=== PATIENT | female | born 1940 | race African-American/Black ===

== ENCOUNTER → 2016-08-17 | Outpatient (CLI) | payer MEDICARE ==
[2015-11-09 19:55] VITALS: BP 173/89
[~2016-08-17] MED LIST: BUPIVACAINE MPF 0.5% 10 ML VIAL for KCIC. IJ ONE; CARV3.122 PO; INSU100V13 SQ; INSU100V31 SQ; IOHEXOL 300 MG/ML 10ML VIAL. INT ART ONE; LOSA25TA4 PO; methylPREDNISolone ACETATE 40 MG/ML VIAL. INT ART ONE
--- NOTE | 2016-08-17 15:03 | KCIC ---
PROCEDURE Therapeutic left hip injection using fluoroscopic guidance. HISTORY Hip pain. TECHNIQUE The procedure was explained to the patient as were potential risks, including infection, bleeding or allergic reaction. All questions were answered. Informed written and verbal consent was obtained. The hip was prepped and draped in the usual sterile manner. Following administration of local anesthetic, a 22-gauge spinal needle was advanced into the hip joint without difficulty, with care taken to avoid the vascular structures. Stylet was removed and following negative aspiration, a mixture of 2 cc (80 mg) Depo-Medrol, 4 cc 0.5% Marcaine and 4 cc 1% lidocaine were injected without difficulty. Iodinated contrast was not used due to a question of patient tolerance. Intra-articular position was confirmed with a small amount of air. The needle was removed. There was good hemostasis at the injection site. The patient left in stable condition without immediate complication. The patient was given postprocedural instructions, instructed to contact us or the emergency room if there are any complications. A single spot image was obtained. FLUOROSCOPY TIME: 49 seconds Electronically signed by: Giacomo Noel MD (August 17, 2016 15:02:33)
--- NOTE | 2016-08-17 15:07 | KCIC ---
PROCEDURE AP pelvis with lateral view of the left hip HISTORY Chronic left hip pain. COMPARISON None FINDINGS Severe axial narrowing of the left hip joint. Mild acetabuli protrusio. Small marginal osteophytes. Mild coarsening of the trabecula at the left femoral neck through trochanteric region, raising the question of mild or early Paget's disease. No evidence of acute fracture. No dislocation. Limited visualization of the lower spine demonstrates degenerative disease. IMPRESSION 1. 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 Mild coarsening of left proximal femur trabecular markings. Consider Paget's disease. 2. Left hip primary osteoarthritis. Electronically signed by: Giacomo Noel MD (August 17, 2016 15:06:05)
== END | disposition home or self-care (01) ==
LOC: KCIC 11:55
PROVIDERS: ATTEND Physical Medicine & Rehabilitation
DX: M16.12 Unilateral primary osteoarthritis, left hip (principal); G89.29 Other chronic pain
CPT/HCPCS: 20610; 73501; 77002; J1030; Q9967

== ENCOUNTER → 2017-07-04 | Outpatient (CLI) | payer MEDICARE ==
[2017-07-04] MEDS: methylPREDNISolone ACETATE 40 MG/ML VIAL. INT ART (13:01)
[2017-07-04] MEDS: LIDOCAINE 1% Multi-Dose 20 ML VIAL. ID (13:01)
[2017-07-04] MEDS: BUPIVACAINE MPF 0.5% 10 ML VIAL for KCIC. IJ (13:01)
[2017-07-04] MEDS: IOHEXOL 300 MG/ML 50 ML VIAL. INT ART (13:01)
== END | disposition home or self-care (01) ==
LOC: KCIC 12:16
DX: M25.552 Pain in left hip (principal); Z88.8 Allergy status to other drugs, medicaments and biological substances
CPT/HCPCS: 20610; 77002; J1030; Q9967

== ENCOUNTER 2018-01-29 17:17 | Emergency (ER) | payer MEDICARE ==
[2015-11-09 19:55] VITALS: BP 173/89
[~2018-01-29 17:17] MED LIST changes: -BUPIVACAINE MPF 0.5% 10 ML VIAL for KCIC. IJ ONE; -IOHEXOL 300 MG/ML 10ML VIAL. INT ART ONE; -LOSA25TA4 PO; +LOSA25TA5 PO; -methylPREDNISolone ACETATE 40 MG/ML VIAL. INT ART ONE
== END 2018-01-29 18:11 | disposition left against medical advice (07) ==
LOC: ER 17:17
DX: R04.0 Epistaxis (principal); Z53.21 Procedure and treatment not carried out due to patient leaving prior to being seen by health care provider

== ENCOUNTER → 2018-03-17 | Outpatient (CLI) | payer MEDICARE ==
[2015-11-09 19:55] VITALS: BP 173/89
[~2018-03-17] MED LIST changes: +BUPIVACAINE MPF 0.25% 10 ML VIAL. IJ ONE; +BUPIVACAINE MPF 0.25% 30 ML VIAL. IJ ONE; +BUPIVACAINE MPF 0.5% 30 ML VIAL. IJ ONE; +CARV3.1210 PO; -CARV3.122 PO; +IOHEXOL 300 MG/ML 50 ML VIAL. INT ART ONE; +LIDOCAINE WITH 8.4% SOD BICARB 3 ML DISP.SYRIN. INJ ONE; -LOSA25TA5 PO; +LOSA25TA54 PO; +methylPREDNISolone ACETATE 40 MG/ML VIAL. INT ART ONE
--- NOTE | 2018-03-17 15:30 | RAD ---
Fluoroscopically guided left hip joint injection, 03/17/2018: History: Arthritis, pain Under local anesthesia, aseptic conditions and fluoroscopic guidance a 22-gauge spinal needle was passed into the left hip joint via an anterior approach. A small amount of iodinated contrast material was injected to confirm intra-articular positioning following which 40 mg of Depo-Medrol mixed with 4 cc of 0.25% bupivacaine was injected into the joint as requested. The needle was then removed and hemostasis obtained. 1.0 minutes of fluoroscopy time was utilized. One fluoroscopic spot image was recorded. The patient tolerated the procedure well and left the department in good condition.
--- NOTE | 2018-03-17 17:43 | RAD ---
Pelvis with left hip, 3 views, 03/17/2018: HISTORY: Painful left hip, arthritis There is moderate narrowing of the left hip joint with subchondral sclerosis and marginal spurring. The right hip joint is fairly well-maintained. No fracture or dislocation is identified. IMPRESSION: 1. Moderate osteoarthritis at the left hip joint. 2. No acute bony abnormality is detected. Electronically signed by: Ziggy Mckeon MD (03/17/2018 5:40 PM) [facility]
== END | disposition home or self-care (01) ==
LOC: RAD 11:55
PROVIDERS: ATTEND Physical Medicine & Rehabilitation
DX: M16.12 Unilateral primary osteoarthritis, left hip (principal); I10 Essential (primary) hypertension; E11.9 Type 2 diabetes mellitus without complications; Z79.899 Other long term (current) drug therapy; Z88.8 Allergy status to other drugs, medicaments and biological substances; Z79.84 Long term (current) use of oral hypoglycemic drugs
CPT/HCPCS: 20610; 73501; 77002; J1030; J3490; Q9967

== ENCOUNTER → 2018-06-12 | Outpatient (CLI) | payer MEDICARE ==
[2015-11-09 19:55] VITALS: BP 173/89
[~2018-06-12] MED LIST changes: +ASPI-630 PO; +ATOR20TA58 PO; -BUPIVACAINE MPF 0.25% 10 ML VIAL. IJ ONE; -BUPIVACAINE MPF 0.25% 30 ML VIAL. IJ ONE; -BUPIVACAINE MPF 0.5% 30 ML VIAL. IJ ONE; +CARV25TA2 PO; +CYAN1TAB19 PO; +DARBEPOETIN ALFA IN POLYSORBAT SQ; +EPOE10005 IJ; +FERR325T14 PO; +FURO-68 PO; -IOHEXOL 300 MG/ML 50 ML VIAL. INT ART ONE; -LIDOCAINE WITH 8.4% SOD BICARB 3 ML DISP.SYRIN. INJ ONE; +OMEG1CAP6 PO; +OXYC1TAB15 PO; -methylPREDNISolone ACETATE 40 MG/ML VIAL. INT ART ONE
[2018-06-12 09:18] LABS: BASO % 0 % (0-3); EOS # 0.3 x10^3/uL (0.0-0.7); EOS % 5 % (0-3); HEMATOCRIT 31.8 % (36.0-47.0); HEMOGLOBIN 10.3 g/dL (12.0-15.5); LYMPH % 33 % (24-48); MEAN CORPUSCULAR HEMOGLOBIN 29 pg (25-35); MEAN CORPUSCULAR HGB CONC 32 g/dL (31-37); MEAN CORPUSCULAR VOLUME 89 fL (79-100); MONO # 0.6 x10^3/uL (0.0-1.1); MONO % 9 % (0-9); NEUT # 3.2 x10^3uL (1.8-7.7); NEUT % 52 % (31-73); PLATELET COUNT 219 x10^3/uL (140-400); RED BLOOD COUNT 3.58 x10^6/uL (3.50-5.40); RED CELL DISTRIBUTION WIDTH 15.1 % (11.5-14.5); WHITE BLOOD COUNT 6.1 x10^3/uL (4.0-11.0)
[2018-06-12 09:28] LABS: PROTHROMBIN TIME PATIENT 13.9 SEC (11.7-14.0)
[2018-06-12 09:31] LABS: ALBUMIN 3.2 g/dL (3.4-5.0); CALCIUM 9.8 mg/dL (8.5-10.1); GFR 18.3; POTASSIUM 5.1 mmol/L (3.5-5.1)
[2018-06-12 11:31] LABS: BILIRUBIN,URINE NEGATIVE (NEG); CLARITY,URINE CLEAR; COLOR,URINE YELLOW; NITRITE,URINE NEGATIVE (NEG); PROTEIN,URINE 100 mg/dL (NEG-TRACE); UROBILINOGEN,URINE 0.2 mg/dL (0.2 mg/dL)
[2018-06-12 11:59] LABS: BACTERIA,URINE FEW /HPF (0-FEW); RBC,URINE OCC /HPF (0-2); SQUAMOUS EPITHELIAL CELL,UR MOD /LPF
--- NOTE | 2018-06-12 13:10 | EKG ---
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
--- NOTE | 2018-06-12 13:26 | RAD ---
EXAM: Chest, 2 views. HISTORY: Arthroplasty. Preoperative evaluation. Pain. COMPARISON: None. FINDINGS: 2 views the chest are obtained. There is no infiltrate, pleural effusion or pneumothorax. The heart is normal in size. There is evidence of prior median sternotomy and cardiac valve surgery. There is a calcified granuloma within the right upper lobe. There is suspected linear scarring or atelectasis within the lingula. IMPRESSION: No acute pulmonary finding. Electronically signed by: Annita Matthew MD (06/12/2018 1:23 PM) [place] [id number]
== END | disposition home or self-care (01) ==
LOC: SURGPAT 12:45
PROVIDERS: ATTEND Orthopaedic Surgery Sports Medicine
DX: M17.12 Unilateral primary osteoarthritis, left knee (principal); I12.9 Hypertensive chronic kidney disease with stage 1 through stage 4 chronic kidney disease, or unspecified chronic kidney disease; E11.22 Type 2 diabetes mellitus with diabetic chronic kidney disease; E78.00 Pure hypercholesterolemia, unspecified; N18.9 Chronic kidney disease, unspecified; Z79.899 Other long term (current) drug therapy
CPT/HCPCS: 36415; 71046; 80048; 81001; 82040; 85025; 85610; 85651; 85730; 87086; 87641; 93005

== ENCOUNTER 2018-06-26 08:27 | Inpatient (IN) | payer MEDICARE ==
[~2018-06-26] VITALS: Ht 170.2 cm; Wt 98.9 kg
[2018-06-26] VITALS (7 sets, daily range): BP systolic 123–159; BP diastolic 60–79
[~2018-06-26 08:27] MED LIST changes: +ACETAMINOPHEN 500 MG TABLET PO PRN; -CYAN1TAB19 PO; -DARBEPOETIN ALFA IN POLYSORBAT SQ; +DEXAMETHASONE SOD PHOS 20 MG/5 ML VIAL. ONE; -EPOE10005 IJ; -FERR325T14 PO; +HYDROmorphone 2 MG/ML VIAL IV PRN; +IV RINGERS,LACTATED 1000ML 1,000 ML IV SCH; +LIDOCAINE 1% PF 2 ML VIAL. ID PRN; +LIDOCAINE 2% PF 5 ML VIAL. ONE; +MORPHINE SULFATE 2 MG/ML VIAL. IV PRN; +MORPHINE SULFATE 5 MG, KETOROLAC 30MG VIAL 30 MG, ROPIVacaine 0.5% PF 60 ML, EPINEPHrin... INT ART ONE; +ONDANSETRON PF 4 MG/2 ML VIAL. IV PRN; +ONDANSETRON PF 4 MG/2 ML VIAL. ONE; -OXYC1TAB15 PO; +PROCHLORPERAZINE 10 MG/2 ML VIAL. IV PRN; +PROPOFOL 20 ML IV ONE; +ROCURONIUM 50 MG/5 ML VIAL. ONE; +SUCCINYLCHOLINE 200 MG/10 ML VIAL. ONE; +fentaNYL PF VIAL 100 MCG/2 ML VIAL IV PRN; +fentaNYL PF VIAL 100 MCG/2 ML VIAL ONE
[2018-06-26] MEDS: IV NORMAL SALINE 1000ML BAG 1,000 ML IV SCH ×3 (09:41→14:23)
[2018-06-26] MEDS ORDERED: 0.9 % SODIUM CHLORIDE 10 ML DISP.SYRIN. IV PRN (09:45)
[2018-06-26] MEDS ORDERED: METOCLOPRAMIDE HCL 10 MG/2 ML VIAL. IV PRN (09:45)
[2018-06-26] MEDS ORDERED: MORPHINE SULFATE 2 MG/ML VIAL. IV PRN (09:45)
[2018-06-26] MEDS ORDERED: CALCIUM CARBONATE 500 MG TAB.CHEW PO PRN (09:45)
[2018-06-26] MEDS ORDERED: oxyCODONE IR 5 MG TABLET PO PRN (09:45)
[2018-06-26] MEDS ORDERED: diphenhydrAMINE 50 MG/ML VIAL IV PRN (09:45)
[2018-06-26] MEDS ORDERED: DEXTROSE 50% 25 GM / 50ML DISP.SYRIN. IV PRN (09:45)
[2018-06-26] MEDS ORDERED: ZOLPIDEM 5 MG TABLET. PO PRN (09:45)
[2018-06-26] MEDS ORDERED: fentaNYL PF VIAL 100 MCG/2 ML VIAL IV PRN (09:45)
[2018-06-26] MEDS ORDERED: PROCHLORPERAZINE 5 MG TABLET. PO PRN (09:45)
[2018-06-26 10:14] LABS: PROTHROMBIN TIME PATIENT 15.1 SEC (11.7-14.0)
[2018-06-26] MEDS: ONDANSETRON PF 4 MG/2 ML VIAL. IV SCH ×3 (12:00→23:00)
[2018-06-26] MEDS: ONDANSETRON ODT 4 MG TAB.RAPDIS. PO SCH ×3 (12:00→23:00)
--- NOTE | 2018-06-26 12:02 | PDOC4 ---
Operative Note Operative Note Date of procedure: 06/26/2018 Surgeon: Semaj Farris Asst.: Roger Oakes, advanced practice registered nurse who was necessary to assist with manipulating the leg and holding retractors as well as wound closure for this procedure Preoperative diagnosis: Advanced left hip primary degenerative joint disease Postoperative diagnosis: Same Procedure performed: Left total hip arthroplasty Anesthesia: Gen. Findings: Advanced primary degenerative joint disease of left hip. Blood loss: 200mL Complications: none Components inserted: Fierro and nephew 52 mm R3 acetabular shell with a 36mm +4 cobalt chrome femoral head. A 20 posteriorly directed elevated liner was used. Size 8 standard offset anthology femoral component was used. Reason for procedure: Patient is a very pleasant individual with severe and progressive pain interfering with her activities of daily living and attributable to the above preoperative diagnosis. Clinical and radiographic examination were consistent with the above preoperative diagnosis and after discussion of the risks, benefits, and alternatives, taking into account her failure of conservative therapies, the patient elected to proceed with surgery. Description of procedure: Patient was greeted in the preoperative area by myself where the correct extremity was verified and marked. She was taken back to the operative suite and antibiotics were started as they were brought back. Once in the operative room, patient was transferred gently supine to the operating table and secured to the bed with all pressure points padded. Axillary roll was used. The down leg was padded at the fibular head and heel. Patient was secured the bed with our hip positioning devices. I then appreciated leg lengths in this position. After this, the operative extremity was prepped and draped in our usual sterile fashion including an Ioban Weston. We then proceeded to conduct our standard preoperative timeout. I then palpated and marked surface anatomy and luli a line from my standard posterolateral skin incision. Skin was incised with a scalpel and subcutaneous tissue was dissected down the level of fascia with electrocautery. Bleeders were cauterized as they were encountered. Esquivel elevator was used to sweep aside adherent subcutaneous tissue for later identification and repair of the fascia. Fascia was then incised in line with the skin incision and the gluteus rui was split bluntly in line with its fibers. After this, a lap was used to push bursal tissue posteriorly to identify the piriformis and quadratus, these were taken down, the piriformis was tagged for later repair. Our self-retaining retractor was in place. At this point, identified the hip capsule incised in a T -type incision, tagging ends for later repair. The hip was dislocated. I then palpated and marked with electrocautery areas at the greater and lesser trochanters and center of the femoral head and I made measurements for length and offset. I then luli a line on the neck about 1 cm proximal lesser trochanter and made my neck cut through this. The bony remnant was delivered from the operative field. We placed her acetabular retractors and inspected the acetabulum. I excised the soft tissues from the floor the acetabulum as well as the labrum. Osteophytes were taken down posteriorly. After this, we began reaming and reamed down until we encountered a punctate bleeding bony bed. The operative field and then thoroughly irrigated out. The cup was then impacted referencing [place] anatomy and the crossbar attachment. I had identified the transverse acetabular ligament. After this, I palpated for the posterior column and greater sciatic notch and referenced this to place a screw into the posterior column. The operative field was irrigated again and my polyethylene liner was then impacted in position and confirmed that it was fully seated on circumferential visualization. We then removed our acetabular retractors and used our proximal femoral elevator and repositioned the leg. I used the carmelo cutting osteotome followed by canal finding reamer followed by lateralizing reamer. We then began broaching and broached to the above size and trialed different head and necks, using our measurements as a guide as well. I still felt that the above combination gave the best range of motion, stability and leg length. After this, the trial components were removed and the canal was thoroughly irrigated. I then impacted my femoral stem and position. We then re- trialed the head sizes and selected the above size. The hip was redislocated and the Dong taper region was washed and dried. The femoral head was then gently impacted in position and the acetabulum was inspected and irrigated to make sure was free of debris. After this, the hip was reduced. Excellent range of motion and stability were achieved. I was happy with the leg lengths. We then closed capsule with simple interrupted #2 Ethibond. Piriformis was reapproximated through drill holes. I then injected my periarticular mixture into the michelle-incisional soft tissues below. Fascia was closed was running #2 Quill suture. Inverted interrupted 2-0 Vicryl in a multilayered fashion was used for subcutaneous tissue and running 3-0 Monocryl for skin. Prior to wound closure, all counts correct 2. An intraoperative fracture occurred treated with cerclage cable as a complication. At the conclusion, the hip region was cleansed and dried and our incisional wound vacuum was applied. Patient tolerated surgery well. At the conclusion, they were laid supine and transferred gently supine to the hospital bed and taken to PACU in a stable and extubated condition. Postoperative plan is to admit the patient to the joint center for DVT and antibiotic prophylaxis as well as to begin the rehabilitation and receive likely IV pain medicine. SEMAJ FARRIS II, MD Jun 26, 2018 12:02
[2018-06-26] MEDS: fentaNYL PF VIAL 100 MCG/2 ML VIAL IV PRN ×2 (12:36→13:16)
--- NOTE | 2018-06-26 13:08 | RAD ---
[facility]LVIS Clinical Indication: POST OP Comparison: AP pelvis March 17, 2018. Findings: There is left hip arthroplasty. On single view the alignment is anatomic. No acute hip or pelvic fracture is seen. There is subcutaneous air lateral to the left hip. Arterial calcifications noted. IMPRESSION: Left hip arthroplasty. No acute fracture. Electronically signed by: Chava Swartz MD (06/26/2018 1:06 PM) [id number]
--- NOTE | 2018-06-26 15:15 | NUR ---
Admitted from PACU after left total hip arthroplasty, dressing to left hip area clean, dry & intact with Dee Dee dressing attach in place, states discomfort level 10/10, ice pack to hip for comfort, bilateral MARIE hose, bilateral SCD's in place, IVF infusing into left hand, left upper arm AV shunt with + thrill/bruit, nauseated vomited approximately 50cc, later requested applesauce to eat, belongings placed in closet, oriented to surroundings, family members at bedside, call light in reach, side rails up.
[2018-06-26] MEDS ORDERED: WARFARIN 7.5 MG TABLET. PO ONE (16:00)
--- NOTE | 2018-06-26 16:35 | NUR ---
Per family member, vomited again stated it was full referring to basin, no po medication seen, will give Zofran
[2018-06-26] MEDS: CARVEDILOL 12.5 MG TABLET. PO SCH (17:00)
[2018-06-26] MEDS: FERROUS SULFATE 325 MG TABLET. PO SCH (17:00)
[2018-06-26] MEDS: INSULIN LISPRO 300 UNITS/3 ML INSULN.PEN. SQ SCH ×2 (17:00→17:31)
--- NOTE | 2018-06-26 18:26 | NUR ---
Ambulated to bathroom unsuccessful with voiding, to bed, side rails up, HOB elevated, call light in lap, family member left
--- NOTE | 2018-06-26 19:20 | NUR ---
PATIENT VISITING WITH FAMILY. PATIENT DENIES ANY COMPLAINTS. CALL LIGHT IN REACH, WILL MONITOR.
--- NOTE | 2018-06-26 20:20 | NUR ---
SEE ASSESSMENT. PATIENT DENIES PAIN OR NEED TO VOID. CALL LIGHT IN REACH, INSTRUCTED PATIENT TO CALL FOR ASSISTANCE. PATIENT VERBALIZED UNDERSTANDING. WILL MONITOR.
[2018-06-26] MEDS: ATORVASTATIN CALCIUM 20 MG TABLET PO SCH (21:43)
[2018-06-26] MEDS: INSULIN GLARGINE 300 UNITS/3 ML INSULN.PEN. SQ SCH (21:48)
[2018-06-26] MEDS: oxyCODONE IR 5 MG TABLET PO PRN (23:00)
--- NOTE | 2018-06-26 23:00 | NUR ---
PAIN MEDICATION GIVEN WITH ZOFRAN ODT EARLY PER PATIENT'S REQUEST. PATIENT DECLINED NEED FOR SNACK OR URGE TO VOID. PATIENT INSTRUCTED ON NEED TO VOID AND VERBALIZED UNDERSTANDING. CALL LIGHT IN REACH, WILL MONITOR.
[2018-06-27 03:18] VITALS: BP 130/70
--- NOTE | 2018-06-27 03:20 | NUR ---
RN INSTRUCTED PATIENT ON NEED TO VOID. PATIENT STATED "I DON'T HAVE TO GO YET." RN ASKED PATIENT IF SHE VOIDS MUCH AT HOME. PATIENT STATED "NOT RALLY, I DON'T DRINK MUCH." RN INFORMED PATIENT ON NEED TO VOID SOON. PATIENT VERBALIZED UNDERSTANDING. CALL LIGHT IN REACH.
[2018-06-27 04:00] LABS: HEMATOCRIT 26.3 % (36.0-47.0); HEMOGLOBIN 8.6 g/dL (12.0-15.5)
[2018-06-27] MEDS ORDERED: MAGNESIUM HYDROXIDE 2,400 MG/30 ML ORAL.SUSP. PO PRN (06:00)
[2018-06-27 06:03] VITALS: BP 140/61
[2018-06-27] MEDS: ONDANSETRON ODT 4 MG TAB.RAPDIS. PO SCH (06:05)
[2018-06-27] MEDS: ONDANSETRON PF 4 MG/2 ML VIAL. IV SCH (06:05)
--- NOTE | 2018-06-27 06:20 | NUR ---
RN INFORMED PATIENT THAT SHE NEEDED TO TRY TO VOID, PATIENT FINALLY AGREED TO TRY. PATIENT UP TO RESTROOM ATTEMPTING TO VOID.
--- NOTE | 2018-06-27 07:13 | NUR ---
PATIENT ATTEMPTED TO VOID WITH A FEW DRIBBLES IN SPECIMEN HAT. BLADDER SCANNED PATIENT WITH >771 ON SCANNER. STRAIGHT CATHETER INSERTED USING STERILE TECHNIQUE. 650CC CLEAR YELLOW URINE OBTAINED.
[2018-06-27] MEDS: FUROSEMIDE 40 MG TABLET. PO SCH (08:03)
[2018-06-27] MEDS: FERROUS SULFATE 325 MG TABLET. PO SCH ×2 (08:03→17:00)
[2018-06-27] MEDS: SENNOSIDES/DOCUSATE 8.6/50MG TABLET. PO SCH (08:03)
[2018-06-27] MEDS: MULTIVITAMIN with MINERAL TABLET. PO SCH (08:03)
[2018-06-27] MEDS: ACETAMINOPHEN 500 MG TABLET PO SCH ×3 (08:03→21:04)
[2018-06-27] MEDS: CARVEDILOL 12.5 MG TABLET. PO SCH ×2 (08:06→17:00)
[2018-06-27] MEDS: INSULIN LISPRO 300 UNITS/3 ML INSULN.PEN. SQ SCH ×6 (08:12→17:09)
[2018-06-27] MEDS ORDERED: LOSARTAN POTASSIUM 50 MG TABLET. PO SCH (09:00)
[2018-06-27 09:06] LABS: CREATININE 3.2 mg/dL (0.6-1.0)
[2018-06-27 09:15] LABS: POTASSIUM 6.1 mmol/L (3.5-5.1)
--- NOTE | 2018-06-27 09:24 | PDOC ---
ORTHO PROGRESS NOTES Subjective Patient denies any complaints this morning. She feels like her pain is tolerable. Vitals Vital Signs Date Time Temp Pulse Resp B/P (MAP) Pulse Ox O2 Delivery O2 Flow Rate FiO2 06/27/18 08:06 62 142/64 06/27/18 07:50 Room Air 06/27/18 06:03 97.4 16 96 97.4 06/26/18 12:56 10 Labs Laboratory Tests Test 06/26/18 09:26 06/26/18 09:30 06/26/18 13:36 06/26/18 16:10 Glucose (Fingerstick) 106 mg/dL (70-99) 215 mg/dL (70-99) 223 mg/dL (70-99) Prothrombin Time 15.1 SEC (11.7-14.0) Prothromb Time International Ratio 1.2 (0.8-1.1) Activated Partial Thromboplast Time 32 SEC (24-38) Test 06/26/18 21:44 06/27/18 03:35 06/27/18 06:37 Glucose (Fingerstick) 213 mg/dL (70-99) 169 mg/dL (70-99) Hemoglobin 8.6 g/dL (12.0-15.5) Hematocrit 26.3 % (36.0-47.0) Mean Corpuscular Hemoglobin Concent 33 g/dL (31-37) Prothrombin Time 15.0 SEC (11.7-14.0) Prothromb Time International Ratio 1.2 (0.8-1.1) Sodium Level 139 mmol/L (136-145) Potassium Level 6.1 mmol/L (3.5-5.1) Chloride Level 106 mmol/L (98-107) Carbon Dioxide Level 23 mmol/L (21-32) Anion Gap 10 (6-14) Blood Urea Nitrogen 57 mg/dL (7-20) Creatinine 3.2 mg/dL (0.6-1.0) Estimated GFR (Cockcroft-Gault) 17.0 Glucose Level 203 mg/dL (70-99) Calcium Level 9.0 mg/dL (8.5-10.1) Laboratory Tests Test 06/26/18 09:26 06/26/18 09:30 06/26/18 13:36 06/26/18 16:10 Glucose (Fingerstick) 106 mg/dL (70-99) 215 mg/dL (70-99) 223 mg/dL (70-99) Prothrombin Time 15.1 SEC (11.7-14.0) Prothromb Time International Ratio 1.2 (0.8-1.1) Activated Partial Thromboplast Time 32 SEC (24-38) Test 06/26/18 21:44 06/27/18 03:35 06/27/18 06:37 Glucose (Fingerstick) 213 mg/dL (70-99) 169 mg/dL (70-99) Hemoglobin 8.6 g/dL (12.0-15.5) Hematocrit 26.3 % (36.0-47.0) Mean Corpuscular Hemoglobin Concent 33 g/dL (31-37) Prothrombin Time 15.0 SEC (11.7-14.0) Prothromb Time International Ratio 1.2 (0.8-1.1) Sodium Level 139 mmol/L (136-145) Potassium Level 6.1 mmol/L (3.5-5.1) Chloride Level 106 mmol/L (98-107) Carbon Dioxide Level 23 mmol/L (21-32) Anion Gap 10 (6-14) Blood Urea Nitrogen 57 mg/dL (7-20) Creatinine 3.2 mg/dL (0.6-1.0) Estimated GFR (Cockcroft-Gault) 17.0 Glucose Level 203 mg/dL (70-99) Calcium Level 9.0 mg/dL (8.5-10.1) Notes She is awake and alert and lying in bed. Eating breakfast. Normal motor and sensation are present in both upper extremity is. Dressing is intact and dry. Assessment and Plan Given her past history and the recent labs this morning, we will ask internal medicine to assist with this patient's care. We will follow her labs along. SOPHIA FARRIS II, MD Jun 27, 2018 09:24
--- NOTE | 2018-06-27 09:25 | NUR ---
Hospitalist consult called to answering service, Dr. Umaña taking new consults.
[2018-06-27] MEDS: oxyCODONE IR 5 MG TABLET PO PRN ×2 (10:00→17:00)
--- NOTE | 2018-06-27 10:30 | NUR ---
Spoke with Dr. Umaña stated wasn't taking consult. Will speak to to Dr. Ivan about it.
--- NOTE | 2018-06-27 10:51 | NUR ---
Pharmacy Warfarin Dosing Note S:Pharmacy consulted to assist with anticoagulation therapy started 06/26/18 with target INR: 1.6 - 2.5 O:LALITA PETERSON is a 77 year old F with JACQUELINE LABS: Last INR: 1.2 Last HGB: 8.6 Last HCT: 26.3 Last PLT: Last dose of 7.5 mg given on 06/26/18 at 1614 Previous Regimen: Vitamin K given: Drug Interaction Changes: Ongoing Drug Interactions: A:INR of 1.2 is below desired range. Target range for this patient is: 1.6 - 2.5 P: Warfarin dose: 5 mg Today at 1600. Bridge Therapy: None Next INR due tomorrow. Pharmacy anticoagulation service will continue to follow. Srinivas Dobson [facility], 06/27/18 [id number]
[2018-06-27] MEDS: IV NORMAL SALINE 1000ML BAG 1,000 ML IV SCH ×2 (11:10→12:13)
[2018-06-27] MEDS ORDERED: ONDANSETRON ODT 4 MG TAB.RAPDIS. PO PRN (12:00)
[2018-06-27] MEDS ORDERED: ONDANSETRON PF 4 MG/2 ML VIAL. IV PRN (12:00)
[2018-06-27] MEDS ORDERED: ALBUTEROL SULFATE 2.5 MG/3 ML NEBU. NEB ONE (13:45)
[2018-06-27] MEDS ORDERED: SODIUM POLYSTYRENE SULFONATE 15 GM/60 ML ORAL.SUSP. PO ONE ×2 (13:45→14:00)
--- NOTE | 2018-06-27 13:45 | PDOC2 ---
CONSULT Date of Consult Date of Consult DATE: 06/27/18 TIME: 13:33 Reason for Consult Reason for Consult: Hyperkalemia Referring Physician Referring Physician: Dr. Semaj Jimenez Identification/Chief Complaint Chief Complaint Left Total Hip arthroplasty Source Source: Chart review, Patient History of Present Illness Reason for Visit: Ms Bearden is a 77 yo F w/ PMHx CKD3/4, AVR (s/p porcine valve replacement), DM, HTN, DJD of left hip who was admitted for left total hip arthroplasty s/p procedure 06/26/18, she tolerated procedure well. Post-procedurally noted with K of 6.1, changed from K 5.1 on 06/12/18 from her pre-op labs. Cr stable near 3 She does c/o constipation and urinary retention post-operatively. She did require straight cath this morning. She still has good residual renal function, has f/u at [facility] with Dr. Fraser. Actually has LUE AV fistula placed this past April for her CKD in anticipation of future renal replacement therapy. She otherwise has no complaints. Denies SOB, CP, palpitations. Past Medical History Cardiovascular: HTN, Aortic stenosis Pulmonary: No pertinent hx GI: No pertinent hx Heme/Onc: No pertinent hx Hepatobiliary: No pertinent hx Psych: No pertinent hx Musculoskeletal: Osteoarthritis Rheumatologic: No pertinent hx Infectious disease: No pertinent hx ENT: No pertinent hx Renal/: Chronic renal insuff Endocrine: Diabetes Dermatology: No pertinent hx Past Surgical History Past Surgical History: Total hip replacement (Left), Other (Left AV Fistula, Aortic valve replacement) Family History Family History: Diabetes, Heart Disease, High Cholestrol, Hypertension Social History No ALCOHOL: none Drugs: None Lives: Alone Domestic Violence: Neg Current Medications Current Medications Current Medications Ondansetron HCl (Zofran) 4 mg PRN Q6HRS PRN IV NAUSEA/VOMITING; Start 06/26/18 at 07:00; Stop 06/26/18 at 17:02; Status DC Fentanyl Citrate (Fentanyl 2ml Vial) 25 mcg PRN Q5MIN PRN IV MILD PAIN; Start 06/26/18 at 07:00; Stop 06/26/18 at 17:02; Status DC Fentanyl Citrate (Fentanyl 2ml Vial) 50 mcg PRN Q5MIN PRN IV MODERATE TO SEVERE PAIN Last administered on 06/26/18at 13:16; Start 06/26/18 at 07:00; Stop 06/26/18 at 17:02; Status DC Morphine Sulfate (Morphine Sulfate) 1 mg PRN Q10MIN PRN IV SEVERE PAIN; Start 06/26/18 at 07:00; Stop 06/26/18 at 17:02; Status DC Ringer's Solution 1,000 ml @ 30 mls/hr Q24H IV ; Start 06/26/18 at 07:00; Stop 06/26/18 at 13:40; Status DC Lidocaine HCl (Xylocaine-Mpf 1% 2ml Vial) 2 ml PRN 1X PRN ID PRIOR TO IV START ; Start 06/26/18 at 07:00; Stop 06/26/18 at 17:02; Status DC Hydromorphone HCl (Dilaudid) 0.5 mg PRN Q10MIN PRN IV SEV PAIN, Second choice; Start 06/26/18 at 07:00; Stop 06/26/18 at 17:02; Status DC Prochlorperazine Edisylate (Compazine) 5 mg PACU PRN PRN IV NAUSEA, MRX1; Start 06/26/18 at 07:00; Stop 06/26/18 at 17:02; Status DC Morphine Sulfate 5 mg/Ketorolac Tromethamine 30 mg/Ropivacaine 60 ml/ Epinephrine HCl 0.5 mg/Sodium Chloride 100 ml @ 100 mls/hr 1X ONCE INT ART Last administered on 06/26/18at 10:45; Start 06/26/18 at 06:00; Stop 06/26/18 at 07:00; Status DC Acetaminophen (Tylenol) 1,000 mg 1X PREOP PRN PO PRIOR TO PROCEDURE Last administered on 06/26/18at 09:38; Start 06/26/18 at 06:00; Stop 06/26/18 at 18:00 ; Status DC Cefazolin Sodium/ Dextrose 50 ml @ 100 mls/hr 1X PREOP PRN IV PRIOR TO PROCEDURE; Start 06/26/18 at 06:00; Stop 06/26/18 at 18:00; Status DC Propofol 20 ml @ As Directed STK-MED ONCE IV ; Start 06/26/18 at 08:22; Stop at 08:23; Status DC Lidocaine HCl (Lidocaine Pf 2% Vial) 5 ml STK-MED ONCE .ROUTE ; Start 06/26/18 at 08:22; Stop 06/26/18 at 08:23; Status DC Dexamethasone Sodium Phosphate (Decadron) 20 mg STK-MED ONCE .ROUTE ; Start at 08:22; Stop 06/26/18 at 08:23; Status DC Ondansetron HCl (Zofran) 4 mg STK-MED ONCE .ROUTE ; Start 06/26/18 at 08:22; Stop 06/26/18 at 08:23; Status DC Rocuronium [place] (Zemuron) 50 mg STK-MED ONCE .ROUTE ; Start 06/26/18 at 08:23 ; Stop 06/26/18 at 08:24; Status DC Succinylcholine Chloride (Anectine) 200 mg STK-MED ONCE .ROUTE ; Start 06/26/18 at 08:24; Stop 06/26/18 at 08:25; Status DC Fentanyl Citrate (Fentanyl 2ml Vial) 100 mcg STK-MED ONCE .ROUTE ; Start at 08:24; Stop 06/26/18 at 08:25; Status DC Sodium Chloride 1,000 ml @ 75 mls/hr [id number] IV Last administered on at 14:23; Start 06/26/18 at 09:45 Morphine Sulfate (Morphine Sulfate) 2 mg PRN Q1HR PRN IV PAIN; Start 06/26/18 at 09:45 Fentanyl Citrate (Fentanyl 2ml Vial) 25 mcg PRN Q1HR PRN IV PAIN, 2nd CHOICE Last administered on 06/26/18at 16:14; Start 06/26/18 at 09:45 Diphenhydramine HCl (Benadryl) 25 mg PRN Q6HRS PRN IV ITCHING; Start 06/26/18 at 09:45 Warfarin Sodium (Coumadin) 7.5 mg 1X ONCE PO Last administered on 06/26/18at 16 :14; Start 06/26/18 at 16:00; Stop 06/26/18 at 16:01; Status DC Warfarin Sodium (Coumadin Per Pharmacy) 1 each PRN DAILY PRN MC SEE COMMENTS Last administered on 06/27/18at 10:48; Start 06/26/18 at 09:45 Multivitamins (Thera M Plus) 1 tab DAILY PO Last administered on 3/19/19at 08: 03; Start 06/27/18 at 09:00 Senna/Docusate Sodium (Senna Plus) 1 tab DAILY PO Last administered on 08:03; Start 06/27/18 at 09:00 Ferrous Sulfate (Feosol) 325 mg BIDWMEALS PO Last administered on 06/27/18 08: 03; Start 06/26/18 at 17:00 Sodium Chloride 1,000 ml @ 40 mls/hr Q24H IV Last administered on 06/26/18at 12 :36; Start 06/26/18 at 11:10 Prochlorperazine Maleate (Compazine) 10 mg PRN Q4HRS PRN PO Nausea/vomiting, 2nd choice; Start 06/26/18 at 09:45 Metoclopramide HCl (Reglan Vial) 10 mg PRN Q4HRS PRN IV NAUSEA/VOMITING, 3rd CHOICE; Start 06/26/18 at 09:45 Magnesium Hydroxide (Milk Of Magnesia) 2,400 mg 1X PRN PRN PO CONSTIPATION; Start 06/27/18 at 06:00; Stop 06/28/18 at 05:59 Bisacodyl (Dulcolax Supp) 10 mg 1X PRN PRN VT CONSTIPATION; Start 06/27/18 at 16:00; Stop 06/28/18 at 15:59 Zolpidem Tartrate (Ambien) 5 mg PRN QHS PRN PO INSOMNIA, MAY REPEAT IN 1HR; Start 06/26/18 at 09:45 Calcium Carbonate/ Glycine (Tums) 500 mg PRN QID PRN PO INDIGESTION; Start at 09:45 Sodium Chloride (Normal Saline Flush) 10 ml QSHIFT PRN IV AFTER MEDS AND BLOOD DRAWS; Start 06/26/18 at 09:45 Acetaminophen (Tylenol) 1,000 mg Q6H PO Last administered on 06/27/18 08:03; Start 06/27/18 at 09:00 Ondansetron HCl (Zofran) 4 mg Q6HRS IV ; Start 06/26/18 at 12:00; Stop 06/27/18 at 06:01; Status DC Ondansetron HCl (Zofran Odt) 4 mg Q6HRS PO Last administered on 06/27/18 06:05 ; Start 06/26/18 at 12:00; Stop 06/27/18 at 06:01; Status DC Ondansetron HCl (Zofran) 4 mg PRN Q6HRS PRN IV Nausea/vomiting, 1st choice; Start 06/27/18 at 12:00 Ondansetron HCl (Zofran Odt) 4 mg PRN Q6HRS PRN PO Nausea/vomiting, 1st choice ; Start 06/27/18 at 12:00 Oxycodone HCl (Roxicodone) 5 mg PRN Q4HRS PRN PO Pain score 4-6 Last administered on 06/27/18 10:00; Start 06/26/18 at 09:45 Oxycodone HCl (Roxicodone) 10 mg PRN Q4HRS PRN PO Pain score 7-10; Start at 09:45 Insulin Human Lispro (HumaLOG) 0-5 UNITS TIDWMEALS SQ Last administered on 06/27 12:09; Start 06/26/18 at 17:00 Dextrose (Dextrose 50%-Water Syringe) 12.5 gm PRN Q15MIN PRN IV SEE COMMENTS; Start 06/26/18 at 09:45 Cefazolin Sodium/ Dextrose 50 ml @ 100 mls/hr Q6H IV Last administered on 06/26 10:25; Start 06/26/18 at 09:45; Stop 06/26/18 at 14:10; Status DC Atorvastatin Calcium (Lipitor) 20 mg HS PO Last administered on 06/26/18 21:43 ; Start 06/26/18 at 21:00 Furosemide (Lasix) 40 mg DAILY PO Last administered on 06/27/18 08:03; Start 06/27/18 at 09:00 Losartan Potassium (Cozaar) 50 mg DAILY PO Last administered on 06/27/18 08:06 ; Start 06/27/18 at 09:00 Carvedilol (Coreg) 12.5 mg BIDWMEALS PO Last administered on 06/27/18 08:06; Start 06/26/18 at 17:00 Insulin Human Lispro (HumaLOG) 10 units TIDWMEALS SQ Last administered on 12:08; Start 06/26/18 at 17:00 Insulin Glargine (Lantus) 30 units QHS SQ Last administered on 06/26/18at 21:48 ; Start 06/26/18 at 21:00 Cefazolin Sodium/ Dextrose 50 ml @ 100 mls/hr 1X ONCE IV Last administered on 06/26/18at 22:57; Start 06/26/18 at 22:30; Stop 06/26/18 at 22:59; Status DC Warfarin Sodium (Coumadin) 5 mg 1X WARF ONCE PO ; Start 06/27/18 at 16:00; Stop 06/27/18 at 16:01 Active Scripts Active Reported Lasix (Furosemide) 40 Mg Tablet 40 Mg PO DAILY Atorvastatin Calcium 20 Mg Tablet 20 Mg PO HS Carvedilol 25 Mg Tablet 12.5 Mg PO BIDWMEALS Fish Oil 1,000 Mg Capsule ([place]-3 Fatty Acids/Fish Oil) 1 Each Capsule 1 Each PO DAILY Aspirin 81 Mg Tab.chew 81 Mg PO DAILY Losartan Potassium (Losartan Potassium) 25 Mg Tablet 50 Mg PO DAILY Levemir (Insulin Detemir) 100 Unit/1 Ml Vial 30 Unit SQ HS Novolog (Insulin Aspart) 100 Unit/1 Ml Vial 10 Unit SQ TIDAC Allergies Allergies: Coded Allergies: lisinopril (Verified Allergy, Intermediate, 06/26/18) ROS General: No: Chills, Night Sweats, Fatigue, Malaise, Appetite, Other PSYCHOLOGICAL ROS: No: Anxiety, Behavioral Disorder, Concentration difficultie , Decreased libido, Depression, Disorientation, Hallucinations, Hostility, Irritablity, Memory difficulties, Mood Swings, Obsessive thoughts, Physical abuse, Sexual abuse, Sleep disturbances, Suicidal ideation, Other Eyes: No Blurry vision, No Decreased vision, No Double vision, No Dry eyes, No Excessive tearing, No Eye Pain, No Itchy Eyes, No Loss of vision, No Photophobia , No Scotomata, No Uses contacts, No Uses glasses, No Other HEENT: No: Heacaches, Visual Changes, Hearing change, Nasal congestion, Nasal discharge, Oral lesions, Sinus pain, Sore Throat, Epistaxis, Sneezing, Snoring, Tinnitus, Vertigo, Vocal changes, Other ALLERGY AND IMMUNOLOGY: No: Hives, Insect Bite Sensitivity, Itchy/Watery Eyes, Nasal Congestion, Post Nasal Drip, Seasonal Allergies, Other Hematological and Lymphatic: No: Bleeding Problems, Blood Clots, Blood Transfusions, Brusing, Night Sweats, Pallor, Swollen Lymph Nodes, Other ENDOCRINE: No: Breast Changes, Galactorrhea, Hair Pattern Changes, Hot Flashes , Malaise/lethargy, Mood Swings, Palpitations, Polydipsia/polyuria, Skin Changes , Temperature Intolerance, Unexpected Weight Changes, Other Breast: No New/Changing Breast Lumps, No Nipple changes, No Nipple discharge, No Other Respiratory: No: Cough, Hemoptysis, Orthopnea, Pleuritic Pain, Shortness of breath, SOB with excertion, Sputum Changes, Stridor, Tachypnea, Wheezing, Other Cardiovascular: No Chest Pain, No Palpitations, No Orthopnea, No Paroxysmal Noc. Dyspnea, No Edema, No Lt Headedness, No Other Gastrointestinal: Yes Constipation; No Nausea, No Vomiting, No Abdominal Pain, No Diarrhea, No Melena, No Hematochezia, No Other Genitourinary: YES Retention; No Dysuria, No Frequency, No Incontinence, No Hematuria, No Discharge, No Urgency, No Pain, No Flank Pain, No Other, No , No , No , No , No , No , No Musculoskeletal: Yes Joint Stiffness; No Gait Disturbance, No Joint Pain, No Joint Swelling, No Muscle Pain, No Muscular Weakness, No Pain In:, No Swelling In:, No Other Neurological: No Behavorial Changes, No Bowel/Bladder ControlChng, No Confusion , No Dizziness, No Gait Disturbance, No Headaches, No Impaired Coord/balance, No Memory Loss, No Numbness/Tingling, No Seizures, No Speech Problems, No Tremors, No Visual Changes, No Weakness, No Other Skin: No Dry Skin, No Eczema, No Hair Changes, No Lumps, No Mole Changes, No Mottling, No Nail Changes, No Pruritus, No Rash, No Skin Lesion Changes, No Other, No Acne Physical Exam General: Alert, Oriented X3, Cooperative, No acute distress HEENT: Atraumatic, PERRLA, EOMI, Mucous membr. moist/pink Lungs: Clear to auscultation, Normal air movement Heart: Regular rate, Normal S1, Normal S2, Other (2/6 BYRON) Abdomen: Normal bowel sounds, Soft, No tenderness, No hepatosplenomegaly, No masses Extremities: No clubbing, No cyanosis, No edema, Normal pulses, Other (Left hip tender and swollen) Skin: No rashes, No breakdown Neuro: Normal gait, Normal speech, Normal tone, Sensation intact, Reflexes 2+ Psych/Mental Status: Mental status NL, Mood NL Vitals VITALS Vital Signs Date Time Temp Pulse Resp B/P (MAP) Pulse Ox O2 Delivery O2 Flow Rate FiO2 06/27/18 11:00 Room Air 06/27/18 08:06 62 142/64 06/27/18 06:03 97.4 16 96 97.4 06/26/18 12:56 10 Labs Labs Laboratory Tests Test 06/26/18 09:26 06/26/18 09:30 06/26/18 13:36 06/26/18 16:10 Glucose (Fingerstick) 106 mg/dL (70-99) 215 mg/dL (70-99) 223 mg/dL (70-99) Prothrombin Time 15.1 SEC (11.7-14.0) Prothromb Time International Ratio 1.2 (0.8-1.1) Activated Partial Thromboplast Time 32 SEC (24-38) Test 06/26/18 21:44 06/27/18 03:35 06/27/18 06:37 Glucose (Fingerstick) 213 mg/dL (70-99) 169 mg/dL (70-99) Hemoglobin 8.6 g/dL (12.0-15.5) Hematocrit 26.3 % (36.0-47.0) Mean Corpuscular Hemoglobin Concent 33 g/dL (31-37) Prothrombin Time 15.0 SEC (11.7-14.0) Prothromb Time International Ratio 1.2 (0.8-1.1) Sodium Level 139 mmol/L (136-145) Potassium Level 6.1 mmol/L (3.5-5.1) Chloride Level 106 mmol/L (98-107) Carbon Dioxide Level 23 mmol/L (21-32) Anion Gap 10 (6-14) Blood Urea Nitrogen 57 mg/dL (7-20) Creatinine 3.2 mg/dL (0.6-1.0) Estimated GFR (Cockcroft-Gault) 17.0 Glucose Level 203 mg/dL (70-99) Calcium Level 9.0 mg/dL (8.5-10.1) Laboratory Tests Test 06/26/18 13:36 06/26/18 16:10 06/26/18 21:44 06/27/18 03:35 Glucose (Fingerstick) 215 mg/dL (70-99) 223 mg/dL (70-99) 213 mg/dL (70-99) Hemoglobin 8.6 g/dL (12.0-15.5) Hematocrit 26.3 % (36.0-47.0) Mean Corpuscular Hemoglobin Concent 33 g/dL (31-37) Prothrombin Time 15.0 SEC (11.7-14.0) Prothromb Time International Ratio 1.2 (0.8-1.1) Sodium Level 139 mmol/L (136-145) Potassium Level 6.1 mmol/L (3.5-5.1) Chloride Level 106 mmol/L (98-107) Carbon Dioxide Level 23 mmol/L (21-32) Anion Gap 10 (6-14) Blood Urea Nitrogen 57 mg/dL (7-20) Creatinine 3.2 mg/dL (0.6-1.0) Estimated GFR (Cockcroft-Gault) 17.0 Glucose Level 203 mg/dL (70-99) Calcium Level 9.0 mg/dL (8.5-10.1) Test 06/27/18 06:37 Glucose (Fingerstick) 169 mg/dL (70-99) Images Images Pelvic XR - Findings: There is left hip arthroplasty. On single view the alignment is anatomic. No acute hip or pelvic fracture is seen. There is subcutaneous air lateral to the left hip. Arterial calcifications noted. IMPRESSION: Left hip arthroplasty. No acute fracture. Assessment/Plan Assessment/Plan A/P: Hyperkalemia - likely 2/2 CKD, meds, will give insulin, Kayexelate. No EKG changes noted CKD3/4 - has AV fistula in place in preparation. Currently she continues to make urine, has plans to initiate dialysis when necessary DM - sliding scale, now eating, can be on basal bolus plus regimen. Hypoglycemia protocol as well. Left hip OA - recovering well from L JACQUELINE Urinary retention - counseled on getting up frequently. Straight cath prn Constipation - bowel regimen. Will avoid mag hydroxide and fleet enemas for CKD FEN - ADA renal diet PPx - Heparin FULL CODE Inpatient for JACQUELINE recovery, may need skilled svcs on d/c. Will treat hyperkalemia, repeat labs in AM. Will be ok for d/c to [facility], we can admit under Dr. Ivan when there. Thank you for this consult, we will continue to follow NAYANA AVALOS MD Jun 27, 2018 13:45
[2018-06-27] MEDS ORDERED: LACTULOSE 20 GM/30 ML SOLUTION. PO PRN (14:30)
--- NOTE | 2018-06-27 15:13 | EKG ---
[facility] [address] [place] [address] Test Date: 2018-06-27 Test Time: 15:05:24 Pat Name: LALITA PETERSON Department: Room: 456 Gender: F Test Administrator: LOGAN : 1940 Requested By: ROSETTA MCKEON Order Number: [id number] Reading MD: Nate Lima MD Measurements Intervals [place] Rate: 56 P: -23 DE: 222 QRS: -31 QRSD: 88 T: -5 QT: 416 QTc: 404 Interpretive Statements SINUS RHYTHM 1ST DEGREE AVB NON-SPECIFIC ST/T CHANGES Electronically Signed On 06-30-2018 16:12:22 CDT by Nate Lima MD
[2018-06-27] MEDS ORDERED: BISACODYL 10 MG SUPP.RECT. PR PRN (16:00)
[2018-06-27] MEDS ORDERED: WARFARIN 5 MG TABLET. PO ONE (16:00)
[2018-06-27 17:47] VITALS: BP 112/51
--- NOTE | 2018-06-27 19:30 | NUR ---
pt attemted to void no success,assisted back to bed denies feeling pressure on the bladder area @ this time bladder scan patient showing greater than 207 ml will monitor pt
[2018-06-27] MEDS: ATORVASTATIN CALCIUM 20 MG TABLET PO SCH (21:03)
[2018-06-27] MEDS: INSULIN GLARGINE 300 UNITS/3 ML INSULN.PEN. SQ SCH (21:18)
--- NOTE | 2018-06-27 22:30 | NUR ---
bladder scan patient showing greater than 297 ml ,pt had no urge to void straight cath patient using sterile technique obtained 700ml yellow urine.
[2018-06-28] MEDS: IV NORMAL SALINE 1000ML BAG 1,000 ML IV SCH ×2 (01:45→15:05)
[2018-06-28] MEDS: ACETAMINOPHEN 500 MG TABLET PO SCH ×4 (03:09→20:46)
[2018-06-28 05:14] LABS: HEMATOCRIT 21.7 % (36.0-47.0); HEMOGLOBIN 7.2 g/dL (12.0-15.5)
[2018-06-28 05:30] VITALS: BP 110/51
[2018-06-28 05:36] LABS: CALCIUM 9.1 mg/dL (8.5-10.1); CREATININE 3.6 mg/dL (0.6-1.0); GFR 14.8; POTASSIUM 5.1 mmol/L (3.5-5.1)
[2018-06-28 07:24] LABS: PROTHROMBIN TIME PATIENT 14.9 SEC (11.7-14.0)
[2018-06-28] MEDS: INSULIN LISPRO 300 UNITS/3 ML INSULN.PEN. SQ SCH ×6 (07:38→17:40)
[2018-06-28] MEDS: SENNOSIDES/DOCUSATE 8.6/50MG TABLET. PO SCH (07:59)
[2018-06-28] MEDS: MULTIVITAMIN with MINERAL TABLET. PO SCH (07:59)
[2018-06-28] MEDS: FERROUS SULFATE 325 MG TABLET. PO SCH ×2 (07:59→17:00)
[2018-06-28] MEDS: FUROSEMIDE 40 MG TABLET. PO SCH (08:00)
[2018-06-28] MEDS: CARVEDILOL 12.5 MG TABLET. PO SCH ×2 (08:00→17:00)
--- NOTE | 2018-06-28 09:24 | PDOC ---
ORTHO PROGRESS NOTES Subjective She tells me she is feeling a little more week today and lightheaded. She denies any chest pain or trouble breathing. Her pain is tolerable. She feels some abdominal fullness, she is not sure if she is past any flatus since surgery. She denies nausea. Vitals Vital Signs Date Time Temp Pulse Resp B/P (MAP) Pulse Ox O2 Delivery O2 Flow Rate FiO2 06/28/18 05:30 97.9 70 110/51 (70) 99 Room Air 97.9 06/27/18 19:15 20 Labs Laboratory Tests Test 06/26/18 09:26 06/26/18 09:30 06/26/18 13:36 06/26/18 16:10 Glucose (Fingerstick) 106 mg/dL (70-99) 215 mg/dL (70-99) 223 mg/dL (70-99) Prothrombin Time 15.1 SEC (11.7-14.0) Prothromb Time International Ratio 1.2 (0.8-1.1) Activated Partial Thromboplast Time 32 SEC (24-38) Test 06/26/18 21:44 06/27/18 03:35 06/27/18 06:37 06/27/18 10:59 Glucose (Fingerstick) 213 mg/dL (70-99) 169 mg/dL (70-99) 178 mg/dL (70-99) Hemoglobin 8.6 g/dL (12.0-15.5) Hematocrit 26.3 % (36.0-47.0) Mean Corpuscular Hemoglobin Concent 33 g/dL (31-37) Prothrombin Time 15.0 SEC (11.7-14.0) Prothromb Time International Ratio 1.2 (0.8-1.1) Sodium Level 139 mmol/L (136-145) Potassium Level 6.1 mmol/L (3.5-5.1) Chloride Level 106 mmol/L (98-107) Carbon Dioxide Level 23 mmol/L (21-32) Anion Gap 10 (6-14) Blood Urea Nitrogen 57 mg/dL (7-20) Creatinine 3.2 mg/dL (0.6-1.0) Estimated GFR (Cockcroft-Gault) 17.0 Glucose Level 203 mg/dL (70-99) Calcium Level 9.0 mg/dL (8.5-10.1) Test 06/27/18 16:26 06/27/18 20:36 06/27/18 21:12 06/28/18 04:40 Glucose (Fingerstick) 150 mg/dL (70-99) 76 mg/dL (70-99) 147 mg/dL (70-99) Hemoglobin 7.2 g/dL (12.0-15.5) Hematocrit 21.7 % (36.0-47.0) Mean Corpuscular Hemoglobin Concent 33 g/dL (31-37) Prothrombin Time 14.9 SEC (11.7-14.0) Prothromb Time International Ratio 1.2 (0.8-1.1) Sodium Level 139 mmol/L (136-145) Potassium Level 5.1 mmol/L (3.5-5.1) Chloride Level 104 mmol/L (98-107) Carbon Dioxide Level 25 mmol/L (21-32) Anion Gap 10 (6-14) Blood Urea Nitrogen 64 mg/dL (7-20) Creatinine 3.6 mg/dL (0.6-1.0) Estimated GFR (Cockcroft-Gault) 14.8 Glucose Level 146 mg/dL (70-99) Calcium Level 9.1 mg/dL (8.5-10.1) Test 06/28/18 06:21 Glucose (Fingerstick) 136 mg/dL (70-99) Laboratory Tests Test 06/27/18 10:59 06/27/18 16:26 06/27/18 20:36 06/27/18 21:12 Glucose (Fingerstick) 178 mg/dL (70-99) 150 mg/dL (70-99) 76 mg/dL (70-99) 147 mg/dL (70-99) Test 06/28/18 04:40 06/28/18 06:21 Hemoglobin 7.2 g/dL (12.0-15.5) Hematocrit 21.7 % (36.0-47.0) Mean Corpuscular Hemoglobin Concent 33 g/dL (31-37) Prothrombin Time 14.9 SEC (11.7-14.0) Prothromb Time International Ratio 1.2 (0.8-1.1) Sodium Level 139 mmol/L (136-145) Potassium Level 5.1 mmol/L (3.5-5.1) Chloride Level 104 mmol/L (98-107) Carbon Dioxide Level 25 mmol/L (21-32) Anion Gap 10 (6-14) Blood Urea Nitrogen 64 mg/dL (7-20) Creatinine 3.6 mg/dL (0.6-1.0) Estimated GFR (Cockcroft-Gault) 14.8 Glucose Level 146 mg/dL (70-99) Calcium Level 9.1 mg/dL (8.5-10.1) Glucose (Fingerstick) 136 mg/dL (70-99) Notes She is awake and alert and sitting in a chair. Dressing is intact and dry. She remains neurovascularly intact in her operative extremity Assessment and Plan I discussed with her to limit her oral intake until her bowels improved. I appreciate hospitalist follow along with her and helping out with her care. We will continue to monitor labs. Given her hinduism preferences, no transfusion today. SOPHIA FARRIS II, MD Jun 28, 2018 09:24
[2018-06-28 10:27] LABS: SODIUM, URINE <60 mmol/L (Not Estab.); UR POTASSIUM 59.3 mmol/L (Not Estab.)
--- NOTE | 2018-06-28 11:26 | PDOC ---
PROGRESS NOTES Chief Complaint Chief Complaint L hip arthroplasty Hyperkalemia CKD DM L hip OA Urinary retention Constipation History of Present Illness History of Present Illness Pt was seen and examined in room today She is post op day 2, resting with NAD in chair at bedside Pt reports pain is generally well controlled We discussed her fistula (RUE) and she explained that HD will eventually be necessary but is not currently on HD PT was curious about her Cr level and how her kidneys were functioning No further complaints Vitals Vitals Vital Signs Date Time Temp Pulse Resp B/P (MAP) Pulse Ox O2 Delivery O2 Flow Rate FiO2 06/28/18 08:12 Room Air 06/28/18 05:30 97.9 70 110/51 (70) 99 97.9 06/27/18 19:15 20 Physical Exam General: Alert, Oriented X3, Cooperative, No acute distress Heart: Regular rate, Normal S1, Normal S2, Other (2/6 [place]) Abdomen: Normal bowel sounds, Soft, No tenderness, No hepatosplenomegaly, No masses Extremities: No clubbing, No cyanosis, No edema, Normal pulses, Other (Left hip tender and swollen 2/2 operation) Skin: No rashes, No breakdown Labs LABS Laboratory Tests Test 06/27/18 16:26 06/27/18 20:36 06/27/18 21:12 06/27/18 22:28 Glucose (Fingerstick) 150 mg/dL (70-99) 76 mg/dL (70-99) 147 mg/dL (70-99) Urine Random Creatinine 113.8 mg/dL (Not Estab.) Urine Sodium <60 mmol/L (Not Estab.) Urine Potassium 59.3 mmol/L (Not Estab.) Urine Chloride <60 mmol/L (Not Estab.) Test 06/28/18 04:40 06/28/18 06:21 Hemoglobin 7.2 g/dL (12.0-15.5) Hematocrit 21.7 % (36.0-47.0) Mean Corpuscular Hemoglobin Concent 33 g/dL (31-37) Prothrombin Time 14.9 SEC (11.7-14.0) Prothromb Time International Ratio 1.2 (0.8-1.1) Sodium Level 139 mmol/L (136-145) Potassium Level 5.1 mmol/L (3.5-5.1) Chloride Level 104 mmol/L (98-107) Carbon Dioxide Level 25 mmol/L (21-32) Anion Gap 10 (6-14) Blood Urea Nitrogen 64 mg/dL (7-20) Creatinine 3.6 mg/dL (0.6-1.0) Estimated GFR (Cockcroft-Gault) 14.8 Glucose Level 146 mg/dL (70-99) Calcium Level 9.1 mg/dL (8.5-10.1) Glucose (Fingerstick) 136 mg/dL (70-99) Review of Systems Review of Systems Pt reports well controlled but mild L hip pain 2/2 arthroplasty, some urinary retention and constipation Denies CP, SOB, [place], n/v/d Assessment and Plan Assessmemt and Plan Assessment L hip arthroplasty Hyperkalemia CKD DM L hip OA Urinary retention Constipation Plan Hyperkalemia is resolving (6.5 to 5.1 today), will continue to follow K+ level Frequent Labs Lasix SS insulin Bowel regimen PT/OT DVT prophylaxis likely D/C to SNU Will continue to follow, thank you for allowing us to assist with Ms Bearden's care Comment Review of Relevant I have reviewed the following items raza (where applicable) has been applied. Labs Laboratory Tests Test 06/26/18 13:36 06/26/18 16:10 06/26/18 21:44 06/27/18 03:35 Glucose (Fingerstick) 215 mg/dL (70-99) 223 mg/dL (70-99) 213 mg/dL (70-99) Hemoglobin 8.6 g/dL (12.0-15.5) Hematocrit 26.3 % (36.0-47.0) Mean Corpuscular Hemoglobin Concent 33 g/dL (31-37) Prothrombin Time 15.0 SEC (11.7-14.0) Prothromb Time International Ratio 1.2 (0.8-1.1) Sodium Level 139 mmol/L (136-145) Potassium Level 6.1 mmol/L (3.5-5.1) Chloride Level 106 mmol/L (98-107) Carbon Dioxide Level 23 mmol/L (21-32) Anion Gap 10 (6-14) Blood Urea Nitrogen 57 mg/dL (7-20) Creatinine 3.2 mg/dL (0.6-1.0) Estimated GFR (Cockcroft-Gault) 17.0 Glucose Level 203 mg/dL (70-99) Calcium Level 9.0 mg/dL (8.5-10.1) Test 06/27/18 06:37 06/27/18 10:59 06/27/18 16:26 06/27/18 20:36 Glucose (Fingerstick) 169 mg/dL (70-99) 178 mg/dL (70-99) 150 mg/dL (70-99) 76 mg/dL (70-99) Test 06/27/18 21:12 06/27/18 22:28 06/28/18 04:40 06/28/18 06:21 Glucose (Fingerstick) 147 mg/dL (70-99) 136 mg/dL (70-99) Urine Random Creatinine 113.8 mg/dL (Not Estab.) Urine Sodium <60 mmol/L (Not Estab.) Urine Potassium 59.3 mmol/L (Not Estab.) Urine Chloride <60 mmol/L (Not Estab.) Hemoglobin 7.2 g/dL (12.0-15.5) Hematocrit 21.7 % (36.0-47.0) Mean Corpuscular Hemoglobin Concent 33 g/dL (31-37) Prothrombin Time 14.9 SEC (11.7-14.0) Prothromb Time International Ratio 1.2 (0.8-1.1) Sodium Level 139 mmol/L (136-145) Potassium Level 5.1 mmol/L (3.5-5.1) Chloride Level 104 mmol/L (98-107) Carbon Dioxide Level 25 mmol/L (21-32) Anion Gap 10 (6-14) Blood Urea Nitrogen 64 mg/dL (7-20) Creatinine 3.6 mg/dL (0.6-1.0) Estimated GFR (Cockcroft-Gault) 14.8 Glucose Level 146 mg/dL (70-99) Calcium Level 9.1 mg/dL (8.5-10.1) Laboratory Tests Test 06/27/18 16:26 06/27/18 20:36 06/27/18 21:12 06/27/18 22:28 Glucose (Fingerstick) 150 mg/dL (70-99) 76 mg/dL (70-99) 147 mg/dL (70-99) Urine Random Creatinine 113.8 mg/dL (Not Estab.) Urine Sodium <60 mmol/L (Not Estab.) Urine Potassium 59.3 mmol/L (Not Estab.) Urine Chloride <60 mmol/L (Not Estab.) Test 06/28/18 04:40 06/28/18 06:21 Hemoglobin 7.2 g/dL (12.0-15.5) Hematocrit 21.7 % (36.0-47.0) Mean Corpuscular Hemoglobin Concent 33 g/dL (31-37) Prothrombin Time 14.9 SEC (11.7-14.0) Prothromb Time International Ratio 1.2 (0.8-1.1) Sodium Level 139 mmol/L (136-145) Potassium Level 5.1 mmol/L (3.5-5.1) Chloride Level 104 mmol/L (98-107) Carbon Dioxide Level 25 mmol/L (21-32) Anion Gap 10 (6-14) Blood Urea Nitrogen 64 mg/dL (7-20) Creatinine 3.6 mg/dL (0.6-1.0) Estimated GFR (Cockcroft-Gault) 14.8 Glucose Level 146 mg/dL (70-99) Calcium Level 9.1 mg/dL (8.5-10.1) Glucose (Fingerstick) 136 mg/dL (70-99) Medications Current Medications Ondansetron HCl (Zofran) 4 mg PRN Q6HRS PRN IV NAUSEA/VOMITING; Start 06/26/18 at 07:00; Stop 06/26/18 at 17:02; Status DC Fentanyl Citrate (Fentanyl 2ml Vial) 25 mcg PRN Q5MIN PRN IV MILD PAIN; Start 06/26/18 at 07:00; Stop 06/26/18 at 17:02; Status DC Fentanyl Citrate (Fentanyl 2ml Vial) 50 mcg PRN Q5MIN PRN IV MODERATE TO SEVERE PAIN Last administered on 06/26/18at 13:16; Start 06/26/18 at 07:00; Stop 06/26/18 at 17:02; Status DC Morphine Sulfate (Morphine Sulfate) 1 mg PRN Q10MIN PRN IV SEVERE PAIN; Start 06/26/18 at 07:00; Stop 06/26/18 at 17:02; Status DC Ringer's Solution 1,000 ml @ 30 mls/hr Q24H IV ; Start 06/26/18 at 07:00; Stop 06/26/18 at 13:40; Status DC Lidocaine HCl (Xylocaine-Mpf 1% 2ml Vial) 2 ml PRN 1X PRN ID PRIOR TO IV START ; Start 06/26/18 at 07:00; Stop 06/26/18 at 17:02; Status DC Hydromorphone HCl (Dilaudid) 0.5 mg PRN Q10MIN PRN IV SEV PAIN, Second choice; Start 06/26/18 at 07:00; Stop 06/26/18 at 17:02; Status DC Prochlorperazine Edisylate (Compazine) 5 mg PACU PRN PRN IV NAUSEA, MRX1; Start 06/26/18 at 07:00; Stop 06/26/18 at 17:02; Status DC Morphine Sulfate 5 mg/Ketorolac Tromethamine 30 mg/Ropivacaine 60 ml/ Epinephrine HCl 0.5 mg/Sodium Chloride 100 ml @ 100 mls/hr 1X ONCE INT ART Last administered on 06/26/18at 10:45; Start 06/26/18 at 06:00; Stop 06/26/18 at 07:00; Status DC Acetaminophen (Tylenol) 1,000 mg 1X PREOP PRN PO PRIOR TO PROCEDURE Last administered on 06/26/18at 09:38; Start 06/26/18 at 06:00; Stop 06/26/18 at 18:00 ; Status DC Cefazolin Sodium/ Dextrose 50 ml @ 100 mls/hr 1X PREOP PRN IV PRIOR TO PROCEDURE; Start 06/26/18 at 06:00; Stop 06/26/18 at 18:00; Status DC Propofol 20 ml @ As Directed STK-MED ONCE IV ; Start 06/26/18 at 08:22; Stop at 08:23; Status DC Lidocaine HCl (Lidocaine Pf 2% Vial) 5 ml STK-MED ONCE .ROUTE ; Start 06/26/18 at 08:22; Stop 06/26/18 at 08:23; Status DC Dexamethasone Sodium Phosphate (Decadron) 20 mg STK-MED ONCE .ROUTE ; Start at 08:22; Stop 06/26/18 at 08:23; Status DC Ondansetron HCl (Zofran) 4 mg STK-MED ONCE .ROUTE ; Start 06/26/18 at 08:22; Stop 06/26/18 at 08:23; Status DC Rocuronium [place] (Zemuron) 50 mg STK-MED ONCE .ROUTE ; Start 06/26/18 at 08:23 ; Stop 06/26/18 at 08:24; Status DC Succinylcholine Chloride (Anectine) 200 mg STK-MED ONCE .ROUTE ; Start 06/26/18 at 08:24; Stop 06/26/18 at 08:25; Status DC Fentanyl Citrate (Fentanyl 2ml Vial) 100 mcg STK-MED ONCE .ROUTE ; Start at 08:24; Stop 06/26/18 at 08:25; Status DC Sodium Chloride 1,000 ml @ 75 mls/hr [id number] IV Last administered on at 14:23; Start 06/26/18 at 09:45 Morphine Sulfate (Morphine Sulfate) 2 mg PRN Q1HR PRN IV PAIN; Start 06/26/18 at 09:45 Fentanyl Citrate (Fentanyl 2ml Vial) 25 mcg PRN Q1HR PRN IV PAIN, 2nd CHOICE Last administered on 06/26/18at 16:14; Start 06/26/18 at 09:45 Diphenhydramine HCl (Benadryl) 25 mg PRN Q6HRS PRN IV ITCHING; Start 06/26/18 at 09:45 Warfarin Sodium (Coumadin) 7.5 mg 1X ONCE PO Last administered on 06/26/18at 16 :14; Start 06/26/18 at 16:00; Stop 06/26/18 at 16:01; Status DC Warfarin Sodium (Coumadin Per Pharmacy) 1 each PRN DAILY PRN MC SEE COMMENTS Last administered on 06/27/18at 10:48; Start 06/26/18 at 09:45 Multivitamins (Thera M Plus) 1 tab DAILY PO Last administered on 06/28/18 07: 59; Start 06/27/18 at 09:00 Senna/Docusate Sodium (Senna Plus) 1 tab DAILY PO Last administered on 07:59; Start 06/27/18 at 09:00 Ferrous Sulfate (Feosol) 325 mg BIDWMEALS PO Last administered on 06/28/18 07: 59; Start 06/26/18 at 17:00 Sodium Chloride 1,000 ml @ 40 mls/hr Q24H IV Last administered on 06/26/18at 12 :36; Start 06/26/18 at 11:10; Stop 06/28/18 at 05:29; Status DC Prochlorperazine Maleate (Compazine) 10 mg PRN Q4HRS PRN PO Nausea/vomiting, 2nd choice; Start 06/26/18 at 09:45 Metoclopramide HCl (Reglan Vial) 10 mg PRN Q4HRS PRN IV NAUSEA/VOMITING, 3rd CHOICE; Start 06/26/18 at 09:45 Magnesium Hydroxide (Milk Of Magnesia) 2,400 mg 1X PRN PRN PO CONSTIPATION; Start 06/27/18 at 06:00; Stop 06/28/18 at 05:59; Status DC Bisacodyl (Dulcolax Supp) 10 mg 1X PRN PRN SD CONSTIPATION; Start 06/27/18 at 16:00; Stop 06/28/18 at 15:59 Zolpidem Tartrate (Ambien) 5 mg PRN QHS PRN PO INSOMNIA, MAY REPEAT IN 1HR; Start 06/26/18 at 09:45 Calcium Carbonate/ Glycine (Tums) 500 mg PRN QID PRN PO INDIGESTION Last administered on 06/28/18at 05:03; Start 06/26/18 at 09:45 Sodium Chloride (Normal Saline Flush) 10 ml QSHIFT PRN IV AFTER MEDS AND BLOOD DRAWS; Start 06/26/18 at 09:45 Acetaminophen (Tylenol) 1,000 mg Q6H PO Last administered on 06/28/18at 07:59; Start 06/27/18 at 09:00 Ondansetron HCl (Zofran) 4 mg Q6HRS IV ; Start 06/26/18 at 12:00; Stop 06/27/18 at 06:01; Status DC Ondansetron HCl (Zofran Odt) 4 mg Q6HRS PO Last administered on 06/27/18at 06:05 ; Start 06/26/18 at 12:00; Stop 06/27/18 at 06:01; Status DC Ondansetron HCl (Zofran) 4 mg PRN Q6HRS PRN IV Nausea/vomiting, 1st choice; Start 06/27/18 at 12:00 Ondansetron HCl (Zofran Odt) 4 mg PRN Q6HRS PRN PO Nausea/vomiting, 1st choice ; Start 06/27/18 at 12:00 Oxycodone HCl (Roxicodone) 5 mg PRN Q4HRS PRN PO Pain score 4-6 Last administered on 06/27/18at 17:00; Start 06/26/18 at 09:45 Oxycodone HCl (Roxicodone) 10 mg PRN Q4HRS PRN PO Pain score 7-10; Start at 09:45 Insulin Human Lispro (HumaLOG) 0-5 UNITS TIDWMEALS SQ Last administered on 06/27 12:09; Start 06/26/18 at 17:00 Dextrose (Dextrose 50%-Water Syringe) 12.5 gm PRN Q15MIN PRN IV SEE COMMENTS; Start 06/26/18 at 09:45 Cefazolin Sodium/ Dextrose 50 ml @ 100 mls/hr Q6H IV Last administered on 06/26at 10:25; Start 06/26/18 at 09:45; Stop 06/26/18 at 14:10; Status DC Atorvastatin Calcium (Lipitor) 20 mg HS PO Last administered on 06/27/18 21:03 ; Start 06/26/18 at 21:00 Furosemide (Lasix) 40 mg DAILY PO Last administered on 06/27/18 08:03; Start 06/27/18 at 09:00 Losartan Potassium (Cozaar) 50 mg DAILY PO Last administered on 06/27/18 08:06 ; Start 06/27/18 at 09:00; Stop 06/27/18 at 13:53; Status DC Carvedilol (Coreg) 12.5 mg BIDWMEALS PO Last administered on 06/27/18 08:06; Start 06/26/18 at 17:00 Insulin Human Lispro (HumaLOG) 10 units TIDWMEALS SQ Last administered on at 07:43; Start 06/26/18 at 17:00 Insulin Glargine (Lantus) 30 units QHS SQ Last administered on 06/27/18at 21:18 ; Start 06/26/18 at 21:00 Cefazolin Sodium/ Dextrose 50 ml @ 100 mls/hr 1X ONCE IV Last administered on 06/26/18at 22:57; Start 06/26/18 at 22:30; Stop 06/26/18 at 22:59; Status DC Warfarin Sodium (Coumadin) 5 mg 1X WARF ONCE PO Last administered on at 17:00; Start 06/27/18 at 16:00; Stop 06/27/18 at 16:01; Status DC Sodium Polystyrene Sulfonate (Kayexalate) 15 gm 1X ONCE PO Last administered on 06/27/18at 13:49; Start 06/27/18 at 14:00; Stop 06/27/18 at 14:01; Status DC Albuterol Sulfate (Ventolin Neb Soln) 2.5 mg 1X ONCE NEB ; Start 06/27/18 at 13 :45; Stop 06/27/18 at 13:47; Status DC Sodium Polystyrene Sulfonate (Kayexalate) 15 gm 1X ONCE PO ; Start 06/27/18 at 13:45; Stop 06/27/18 at 13:46; Status UNV Lactulose (Lactulose) 20 gm PRN DAILY PRN PO CONSTIPATION; Start 06/27/18 at 14 :30 Active Scripts Active Reported Lasix (Furosemide) 40 Mg Tablet 40 Mg PO DAILY Atorvastatin Calcium 20 Mg Tablet 20 Mg PO HS Carvedilol 25 Mg Tablet 12.5 Mg PO BIDWMEALS Fish Oil 1,000 Mg Capsule ([place]-3 Fatty Acids/Fish Oil) 1 Each Capsule 1 Each PO DAILY Aspirin 81 Mg Tab.chew 81 Mg PO DAILY Losartan Potassium (Losartan Potassium) 25 Mg Tablet 50 Mg PO DAILY Levemir (Insulin Detemir) 100 Unit/1 Ml Vial 30 Unit SQ HS Novolog (Insulin Aspart) 100 Unit/1 Ml Vial 10 Unit SQ TIDAC Vitals/I & O Vital Sign - Last 24 Hours 06/27/18 06/27/18 06/27/18 06/27/18 17:00 17:00 17:47 19:15 Temp 97.4 97.4 Pulse 59 56 Resp 18 20 B/P (MAP) 110/58 112/51 (71) Pulse Ox 97 93 O2 Delivery Room Air Room Air Room Air 06/27/18 06/28/18 06/28/18 20:00 05:30 08:12 Temp 97.9 97.9 Pulse 70 B/P (MAP) 110/51 (70) Pulse Ox 99 O2 Delivery Room Air Room Air Room Air Intake and Output 06/27/18 06/27/18 06/28/18 15:00 23:00 07:00 Intake Total 300 ml 440 ml 200 ml Output Total 650 ml 700 ml Balance -350 ml -260 ml 200 ml SAHARA MEJIA III DO Jun 28, 2018 11:26
[2018-06-28] MEDS: oxyCODONE IR 5 MG TABLET PO PRN ×2 (12:48→17:38)
--- NOTE | 2018-06-28 13:45 | NUR ---
Pharmacy Warfarin Dosing Note S: Pharmacy consulted to assist with anticoagulation therapy started 06/26/18 O: LALITA PETERSON is a 77 year old F with JACQUELINE LABS: Last INR: 1.2 Last HGB: 7.2 Last HCT: 21.7 Last dose of 5 mg given on 06/27/18 at 1700 A:INR of 1.2 is below desired range. Target range for this patient is: 1.6 - 2.5 P: Warfarin dose: 6 mg Today at 1600 Bridge Therapy: None Next INR due 06/29 AM Pharmacy anticoagulation service will continue to follow. NICOLASA BA [facility], 06/28/18 [id number]
--- NOTE | 2018-06-28 15:00 | NUR ---
extra strength Tylenol not given pt max out
[2018-06-28] MEDS ORDERED: WARFARIN 6 MG TABLET. PO ONE (16:00)
[2018-06-28 17:45] VITALS: BP 115/55
--- NOTE | 2018-06-28 19:07 | PATHOLOGY ---
[facility] Accession Number: [id number] . 01 Material submitted: . LEFT HIP BONE . 01 Clinical history: . DJD . 02 Diagnosis: Femoral head, left total hip arthroplasty: - Degenerative arthritis. . (JPM:mml; 06/28/2018) QLM/06/28/2018 . 02 Electronically signed: . Alessandro Sharma MD, Pathologist NPI- [id number] . 01 Gross description: . The specimen is received in formalin, labeled "Elizabeth Bearden, left hip bone" and consists of a femoral head with neck measuring 6.2 x 4.6 x 4.5 cm. Eburnation and osteophytes are present. Sectioning reveals pink-yellow cut surfaces. A retail customer service representative section is submitted in A1 following decalcification. (SDY; 06/27/2018) SYU/SYU . 02 Pathologist provided ICD-10: M16.12 . 02 CPT . 734079, [id number] Specimen Comment: A courtesy copy of this report has been sent to Specimen Comment: [phone]. Specimen Comment: Report sent to Specimen Comment: A duplicate report has been generated due to demographic updates. Performed at: 01 [facility] [address], [place], [place] [id number] MD Joe Pascual MD Phone: [phone] Performed at: 02 [facility] [address], [place] [id number] MD Alessandro Sharma MD Phone: [phone]
[2018-06-28] MEDS: ATORVASTATIN CALCIUM 20 MG TABLET PO SCH (20:46)
[2018-06-28] MEDS: INSULIN GLARGINE 300 UNITS/3 ML INSULN.PEN. SQ SCH (20:50)
[2018-06-29] MEDS: ACETAMINOPHEN 500 MG TABLET PO SCH ×3 (03:23→15:10)
[2018-06-29 04:33] LABS: PROTHROMBIN TIME PATIENT 18.4 SEC (11.7-14.0)
[2018-06-29 05:00] LABS: CALCIUM 8.7 mg/dL (8.5-10.1); CREATININE 3.6 mg/dL (0.6-1.0); GFR 14.8; POTASSIUM 4.7 mmol/L (3.5-5.1)
[2018-06-29] MEDS: oxyCODONE IR 5 MG TABLET PO PRN ×3 (05:12→15:10)
[2018-06-29 05:33] LABS: HEMATOCRIT 19.8 % (36.0-47.0); HEMOGLOBIN 6.6 g/dL (12.0-15.5)
--- NOTE | 2018-06-29 05:35 | NUR ---
Patient's Hbg 6.6 and Hct 19.8(critical labs). RN asked patient again if she would accept blood products and Patient declined blood products. Will call critical labs to Dr. Ivan per protocol.
[2018-06-29 05:53] VITALS: BP 107/49
--- NOTE | 2018-06-29 07:50 | SNU/HH DC ---
DISCHARGE ORDERS DISCHARGE INFORMATION: DISCHARGE DATE: Jun 29, 2018 FINAL DIAGNOSIS L JACQUELINE CONDITION ON DISCHARGE: Stable CODE STATUS: Code Status: Full FCI: SNF STAY <30 DAYS: Yes HOSPICE: HOSPICE: No HOSPICE EVAL & TREAT: No LTAC: ADMIT TO LTAC: No POST DISCHARGE ORDERS: ACTIVITY ORDERS: Activity as tolerated WEIGHT BEARING STATUS: As tolerated BATHING ORDERS: Shower-keep dressing dry DIET AFTER DISCHARGE: Regular WOUND/INCISION CARE: Ice to area for comfort, Keep wound/cast CDI, Do not change dressing FOLLOW-UP: PHYSICIAN FOLLOW-UP: Barbara in 2 wks ANTICOAGULATION F/U NEEDED: per pharmacy TREATMENT/EQUIPMENT ORDERS: Physical Therapy For: Evalulation/Treatment Occupational Therapy For: Evaluation/Treatment DISCHARGE MEDICATIONS: Home Meds Reported Medications Furosemide (LASIX) 40 Mg Tablet, 40 MG PO DAILY for CONTROL BP, TAB 06/12/18 Atorvastatin Calcium (ATORVASTATIN CALCIUM) 20 Mg Tablet, 20 MG PO HS for FOR CHOLESTEROL, #30 TAB 0 Refills 06/12/18 Carvedilol (CARVEDILOL) 25 Mg Tablet, 12.5 MG PO BIDWMEALS for CARDIAC, TAB 06/12/18 [place]-3 Fatty Acids/Fish Oil (FISH OIL 1,000 MG CAPSULE) 1 Each Capsule, 1 EACH PO DAILY for SUPPLEMENT, CAP 06/12/18 Aspirin (ASPIRIN) 81 Mg Tab.chew, 81 MG PO DAILY for BLOOD THINNER, TAB.CHEW 06/12/18 Losartan Potassium (LOSARTAN POTASSIUM ) 25 Mg Tablet, 50 MG PO DAILY for CONTROL BP, TAB 08/17/16 Insulin Detemir (LEVEMIR) 100 Unit/1 Ml Vial, 30 UNIT SQ HS for CONTROL DIABETES , VIAL 08/17/16 Insulin Aspart (NOVOLOG) 100 Unit/1 Ml Vial, 10 UNIT SQ TIDAC for CONTROL DIABETES, VIAL 08/17/16 SOPHIA FARRIS II, MD Jun 29, 2018 07:50
--- NOTE | 2018-06-29 07:54 | PDOC ---
ORTHO PROGRESS NOTES Subjective still feeling some fatigue, denies any CP, nausea Vitals Vital Signs Date Time Temp Pulse Resp B/P (MAP) Pulse Ox O2 Delivery O2 Flow Rate FiO2 06/29/18 06:13 16 Room Air 06/29/18 05:53 98.7 110 107/49 (68) 98 98.7 Labs Laboratory Tests Test 06/27/18 10:59 06/27/18 16:26 06/27/18 20:36 06/27/18 21:12 Glucose (Fingerstick) 178 mg/dL (70-99) 150 mg/dL (70-99) 76 mg/dL (70-99) 147 mg/dL (70-99) Test 06/27/18 22:28 06/28/18 04:40 06/28/18 06:21 06/28/18 11:38 Urine Random Creatinine 113.8 mg/dL (Not Estab.) Urine Sodium <60 mmol/L (Not Estab.) Urine Potassium 59.3 mmol/L (Not Estab.) Urine Chloride <60 mmol/L (Not Estab.) Hemoglobin 7.2 g/dL (12.0-15.5) Hematocrit 21.7 % (36.0-47.0) Mean Corpuscular Hemoglobin Concent 33 g/dL (31-37) Prothrombin Time 14.9 SEC (11.7-14.0) Prothromb Time International Ratio 1.2 (0.8-1.1) Sodium Level 139 mmol/L (136-145) Potassium Level 5.1 mmol/L (3.5-5.1) Chloride Level 104 mmol/L (98-107) Carbon Dioxide Level 25 mmol/L (21-32) Anion Gap 10 (6-14) Blood Urea Nitrogen 64 mg/dL (7-20) Creatinine 3.6 mg/dL (0.6-1.0) Estimated GFR (Cockcroft-Gault) 14.8 Glucose Level 146 mg/dL (70-99) Calcium Level 9.1 mg/dL (8.5-10.1) Glucose (Fingerstick) 136 mg/dL (70-99) 187 mg/dL (70-99) Test 06/28/18 16:24 06/28/18 20:48 06/29/18 03:45 06/29/18 06:33 Glucose (Fingerstick) 114 mg/dL (70-99) 142 mg/dL (70-99) 121 mg/dL (70-99) Hemoglobin 6.6 g/dL (12.0-15.5) Hematocrit 19.8 % (36.0-47.0) Mean Corpuscular Hemoglobin Concent 34 g/dL (31-37) Prothrombin Time 18.4 SEC (11.7-14.0) Prothromb Time International Ratio 1.6 (0.8-1.1) Sodium Level 137 mmol/L (136-145) Potassium Level 4.7 mmol/L (3.5-5.1) Chloride Level 103 mmol/L (98-107) Carbon Dioxide Level 22 mmol/L (21-32) Anion Gap 12 (6-14) Blood Urea Nitrogen 70 mg/dL (7-20) Creatinine 3.6 mg/dL (0.6-1.0) Estimated GFR (Cockcroft-Gault) 14.8 Glucose Level 113 mg/dL (70-99) Calcium Level 8.7 mg/dL (8.5-10.1) Laboratory Tests Test 06/28/18 11:38 06/28/18 16:24 06/28/18 20:48 06/29/18 03:45 Glucose (Fingerstick) 187 mg/dL (70-99) 114 mg/dL (70-99) 142 mg/dL (70-99) Hemoglobin 6.6 g/dL (12.0-15.5) Hematocrit 19.8 % (36.0-47.0) Mean Corpuscular Hemoglobin Concent 34 g/dL (31-37) Prothrombin Time 18.4 SEC (11.7-14.0) Prothromb Time International Ratio 1.6 (0.8-1.1) Sodium Level 137 mmol/L (136-145) Potassium Level 4.7 mmol/L (3.5-5.1) Chloride Level 103 mmol/L (98-107) Carbon Dioxide Level 22 mmol/L (21-32) Anion Gap 12 (6-14) Blood Urea Nitrogen 70 mg/dL (7-20) Creatinine 3.6 mg/dL (0.6-1.0) Estimated GFR (Cockcroft-Gault) 14.8 Glucose Level 113 mg/dL (70-99) Calcium Level 8.7 mg/dL (8.5-10.1) Test 06/29/18 06:33 Glucose (Fingerstick) 121 mg/dL (70-99) Notes A and A in chair dressing intact remains NVI LLE Assessment and Plan Hb dropped again PO Iron transfer today, pending insurance and hospitalist approval SOPHIA FARRIS II, MD Jun 29, 2018 07:54
[2018-06-29] MEDS: INSULIN LISPRO 300 UNITS/3 ML INSULN.PEN. SQ SCH ×4 (08:00→12:29)
[2018-06-29] MEDS: CARVEDILOL 12.5 MG TABLET. PO SCH (08:00)
[2018-06-29 08:12] VITALS: BP 105/57
[2018-06-29] MEDS: MULTIVITAMIN with MINERAL TABLET. PO SCH (08:13)
[2018-06-29] MEDS: SENNOSIDES/DOCUSATE 8.6/50MG TABLET. PO SCH (08:13)
[2018-06-29] MEDS: FERROUS SULFATE 325 MG TABLET. PO SCH (08:13)
[2018-06-29] MEDS: FUROSEMIDE 40 MG TABLET. PO SCH (08:14)
--- NOTE | 2018-06-29 10:45 | PDOC ---
PROGRESS NOTES Chief Complaint Chief Complaint L hip arthroplasty Low hemoglobin (currently 6.6 on 06/29) Hyperkalemia CKD DM L hip OA Urinary retention Constipation History of Present Illness History of Present Illness Pt was seen and examined in room today She is post op day 3, resting with NAD in chair at bedside Patient had no new complaints. Patient okay with transfer to [facility] today Hemoglobin at 6.6 today, patient prefers not to have transfusion Vitals Vitals Vital Signs Date Time Temp Pulse Resp B/P (MAP) Pulse Ox O2 Delivery O2 Flow Rate FiO2 06/29/18 10:03 Room Air 06/29/18 08:12 103 105/57 (73) 06/29/18 06:13 16 06/29/18 05:53 98.7 98 98.7 Physical Exam General: Alert, Oriented X3, Cooperative, No acute distress Heart: Regular rate, Normal S1, Normal S2, Other (2/6 BYRON) Lungs: Clear Abdomen: Normal bowel sounds, Soft, No tenderness, No hepatosplenomegaly, No masses Extremities: No clubbing, No cyanosis, No edema, Normal pulses, No tenderness/ swelling, Other (L arm fistula in place) Skin: No rashes, No breakdown Labs LABS Laboratory Tests Test 06/28/18 11:38 06/28/18 16:24 06/28/18 20:48 06/29/18 03:45 Glucose (Fingerstick) 187 mg/dL (70-99) 114 mg/dL (70-99) 142 mg/dL (70-99) Hemoglobin 6.6 g/dL (12.0-15.5) Hematocrit 19.8 % (36.0-47.0) Mean Corpuscular Hemoglobin Concent 34 g/dL (31-37) Prothrombin Time 18.4 SEC (11.7-14.0) Prothromb Time International Ratio 1.6 (0.8-1.1) Sodium Level 137 mmol/L (136-145) Potassium Level 4.7 mmol/L (3.5-5.1) Chloride Level 103 mmol/L (98-107) Carbon Dioxide Level 22 mmol/L (21-32) Anion Gap 12 (6-14) Blood Urea Nitrogen 70 mg/dL (7-20) Creatinine 3.6 mg/dL (0.6-1.0) Estimated GFR (Cockcroft-Gault) 14.8 Glucose Level 113 mg/dL (70-99) Calcium Level 8.7 mg/dL (8.5-10.1) Iron Level 15 ug/dL (50-170) Total Iron Binding Capacity 135 ug/dL (250-450) Iron Saturation 11 % (15-34) Vitamin B12 Level 502 pg/mL (247-911) Test 06/29/18 06:33 Glucose (Fingerstick) 121 mg/dL (70-99) Review of Systems Review of Systems Denies pain Denies chest pain Denies swelling of extremities Denies shortness of breath Assessment and Plan Assessmemt and Plan Assessment: L hip arthroplasty Low hemoglobin (currently 6.6 on 06/29) Hyperkalemia CKD DM L hip OA Urinary retention Constipation Plan: Continue to monitor hemoglobin outpatient, patient prefers not to have transfusion at this time Patient to be transferred to [facility] today Follow up with PCP and ortho outpatient Return to the ED with worsening symptoms Monitor vitals and labs Comment Review of Relevant I have reviewed the following items raza (where applicable) has been applied. Labs Laboratory Tests Test 06/27/18 10:59 06/27/18 16:26 06/27/18 20:36 06/27/18 21:12 Glucose (Fingerstick) 178 mg/dL (70-99) 150 mg/dL (70-99) 76 mg/dL (70-99) 147 mg/dL (70-99) Test 06/27/18 22:28 06/28/18 04:40 06/28/18 06:21 06/28/18 11:38 Urine Random Creatinine 113.8 mg/dL (Not Estab.) Urine Sodium <60 mmol/L (Not Estab.) Urine Potassium 59.3 mmol/L (Not Estab.) Urine Chloride <60 mmol/L (Not Estab.) Hemoglobin 7.2 g/dL (12.0-15.5) Hematocrit 21.7 % (36.0-47.0) Mean Corpuscular Hemoglobin Concent 33 g/dL (31-37) Prothrombin Time 14.9 SEC (11.7-14.0) Prothromb Time International Ratio 1.2 (0.8-1.1) Sodium Level 139 mmol/L (136-145) Potassium Level 5.1 mmol/L (3.5-5.1) Chloride Level 104 mmol/L (98-107) Carbon Dioxide Level 25 mmol/L (21-32) Anion Gap 10 (6-14) Blood Urea Nitrogen 64 mg/dL (7-20) Creatinine 3.6 mg/dL (0.6-1.0) Estimated GFR (Cockcroft-Gault) 14.8 Glucose Level 146 mg/dL (70-99) Calcium Level 9.1 mg/dL (8.5-10.1) Glucose (Fingerstick) 136 mg/dL (70-99) 187 mg/dL (70-99) Test 06/28/18 16:24 06/28/18 20:48 06/29/18 03:45 06/29/18 06:33 Glucose (Fingerstick) 114 mg/dL (70-99) 142 mg/dL (70-99) 121 mg/dL (70-99) Hemoglobin 6.6 g/dL (12.0-15.5) Hematocrit 19.8 % (36.0-47.0) Mean Corpuscular Hemoglobin Concent 34 g/dL (31-37) Prothrombin Time 18.4 SEC (11.7-14.0) Prothromb Time International Ratio 1.6 (0.8-1.1) Sodium Level 137 mmol/L (136-145) Potassium Level 4.7 mmol/L (3.5-5.1) Chloride Level 103 mmol/L (98-107) Carbon Dioxide Level 22 mmol/L (21-32) Anion Gap 12 (6-14) Blood Urea Nitrogen 70 mg/dL (7-20) Creatinine 3.6 mg/dL (0.6-1.0) Estimated GFR (Cockcroft-Gault) 14.8 Glucose Level 113 mg/dL (70-99) Calcium Level 8.7 mg/dL (8.5-10.1) Iron Level 15 ug/dL (50-170) Total Iron Binding Capacity 135 ug/dL (250-450) Iron Saturation 11 % (15-34) Vitamin B12 Level 502 pg/mL (247-911) Laboratory Tests Test 06/28/18 11:38 06/28/18 16:24 06/28/18 20:48 06/29/18 03:45 Glucose (Fingerstick) 187 mg/dL (70-99) 114 mg/dL (70-99) 142 mg/dL (70-99) Hemoglobin 6.6 g/dL (12.0-15.5) Hematocrit 19.8 % (36.0-47.0) Mean Corpuscular Hemoglobin Concent 34 g/dL (31-37) Prothrombin Time 18.4 SEC (11.7-14.0) Prothromb Time International Ratio 1.6 (0.8-1.1) Sodium Level 137 mmol/L (136-145) Potassium Level 4.7 mmol/L (3.5-5.1) Chloride Level 103 mmol/L (98-107) Carbon Dioxide Level 22 mmol/L (21-32) Anion Gap 12 (6-14) Blood Urea Nitrogen 70 mg/dL (7-20) Creatinine 3.6 mg/dL (0.6-1.0) Estimated GFR (Cockcroft-Gault) 14.8 Glucose Level 113 mg/dL (70-99) Calcium Level 8.7 mg/dL (8.5-10.1) Iron Level 15 ug/dL (50-170) Total Iron Binding Capacity 135 ug/dL (250-450) Iron Saturation 11 % (15-34) Vitamin B12 Level 502 pg/mL (247-911) Test 06/29/18 06:33 Glucose (Fingerstick) 121 mg/dL (70-99) Medications Current Medications Ondansetron HCl (Zofran) 4 mg PRN Q6HRS PRN IV NAUSEA/VOMITING; Start 06/26/18 at 07:00; Stop 06/26/18 at 17:02; Status DC Fentanyl Citrate (Fentanyl 2ml Vial) 25 mcg PRN Q5MIN PRN IV MILD PAIN; Start 06/26/18 at 07:00; Stop 06/26/18 at 17:02; Status DC Fentanyl Citrate (Fentanyl 2ml Vial) 50 mcg PRN Q5MIN PRN IV MODERATE TO SEVERE PAIN Last administered on 06/26/18at 13:16; Start 06/26/18 at 07:00; Stop 06/26/18 at 17:02; Status DC Morphine Sulfate (Morphine Sulfate) 1 mg PRN Q10MIN PRN IV SEVERE PAIN; Start 06/26/18 at 07:00; Stop 06/26/18 at 17:02; Status DC Ringer's Solution 1,000 ml @ 30 mls/hr Q24H IV ; Start 06/26/18 at 07:00; Stop 06/26/18 at 13:40; Status DC Lidocaine HCl (Xylocaine-Mpf 1% 2ml Vial) 2 ml PRN 1X PRN ID PRIOR TO IV START ; Start 06/26/18 at 07:00; Stop 06/26/18 at 17:02; Status DC Hydromorphone HCl (Dilaudid) 0.5 mg PRN Q10MIN PRN IV SEV PAIN, Second choice; Start 06/26/18 at 07:00; Stop 06/26/18 at 17:02; Status DC Prochlorperazine Edisylate (Compazine) 5 mg PACU PRN PRN IV NAUSEA, MRX1; Start 06/26/18 at 07:00; Stop 06/26/18 at 17:02; Status DC Morphine Sulfate 5 mg/Ketorolac Tromethamine 30 mg/Ropivacaine 60 ml/ Epinephrine HCl 0.5 mg/Sodium Chloride 100 ml @ 100 mls/hr 1X ONCE INT ART Last administered on 06/26/18at 10:45; Start 06/26/18 at 06:00; Stop 06/26/18 at 07:00; Status DC Acetaminophen (Tylenol) 1,000 mg 1X PREOP PRN PO PRIOR TO PROCEDURE Last administered on 06/26/18at 09:38; Start 06/26/18 at 06:00; Stop 06/26/18 at 18:00 ; Status DC Cefazolin Sodium/ Dextrose 50 ml @ 100 mls/hr 1X PREOP PRN IV PRIOR TO PROCEDURE; Start 06/26/18 at 06:00; Stop 06/26/18 at 18:00; Status DC Propofol 20 ml @ As Directed STK-MED ONCE IV ; Start 06/26/18 at 08:22; Stop at 08:23; Status DC Lidocaine HCl (Lidocaine Pf 2% Vial) 5 ml STK-MED ONCE .ROUTE ; Start 06/26/18 at 08:22; Stop 06/26/18 at 08:23; Status DC Dexamethasone Sodium Phosphate (Decadron) 20 mg STK-MED ONCE .ROUTE ; Start at 08:22; Stop 06/26/18 at 08:23; Status DC Ondansetron HCl (Zofran) 4 mg STK-MED ONCE .ROUTE ; Start 06/26/18 at 08:22; Stop 06/26/18 at 08:23; Status DC Rocuronium [place] (Zemuron) 50 mg STK-MED ONCE .ROUTE ; Start 06/26/18 at 08:23 ; Stop 06/26/18 at 08:24; Status DC Succinylcholine Chloride (Anectine) 200 mg STK-MED ONCE .ROUTE ; Start 06/26/18 at 08:24; Stop 06/26/18 at 08:25; Status DC Fentanyl Citrate (Fentanyl 2ml Vial) 100 mcg STK-MED ONCE .ROUTE ; Start at 08:24; Stop 06/26/18 at 08:25; Status DC Sodium Chloride 1,000 ml @ 75 mls/hr [id number] IV Last administered on at 14:23; Start 06/26/18 at 09:45; Stop 06/28/18 at 23:02; Status DC Morphine Sulfate (Morphine Sulfate) 2 mg PRN Q1HR PRN IV PAIN; Start 06/26/18 at 09:45 Fentanyl Citrate (Fentanyl 2ml Vial) 25 mcg PRN Q1HR PRN IV PAIN, 2nd CHOICE Last administered on 06/26/18at 16:14; Start 06/26/18 at 09:45 Diphenhydramine HCl (Benadryl) 25 mg PRN Q6HRS PRN IV ITCHING; Start 06/26/18 at 09:45 Warfarin Sodium (Coumadin) 7.5 mg 1X ONCE PO Last administered on 06/26/18at 16 :14; Start 06/26/18 at 16:00; Stop 06/26/18 at 16:01; Status DC Warfarin Sodium (Coumadin Per Pharmacy) 1 each PRN DAILY PRN MC SEE COMMENTS Last administered on 06/28/18at 13:44; Start 06/26/18 at 09:45 Multivitamins (Thera M Plus) 1 tab DAILY PO Last administered on 06/29/18at 08: 13; Start 06/27/18 at 09:00 Senna/Docusate Sodium (Senna Plus) 1 tab DAILY PO Last administered on at 08:13; Start 06/27/18 at 09:00 Ferrous Sulfate (Feosol) 325 mg BIDWMEALS PO Last administered on 06/29/18at 08: 13; Start 06/26/18 at 17:00 Sodium Chloride 1,000 ml @ 40 mls/hr Q24H IV Last administered on 06/26/18at 12 :36; Start 06/26/18 at 11:10; Stop 06/28/18 at 05:29; Status DC Prochlorperazine Maleate (Compazine) 10 mg PRN Q4HRS PRN PO Nausea/vomiting, 2nd choice; Start 06/26/18 at 09:45 Metoclopramide HCl (Reglan Vial) 10 mg PRN Q4HRS PRN IV NAUSEA/VOMITING, 3rd CHOICE; Start 06/26/18 at 09:45 Magnesium Hydroxide (Milk Of Magnesia) 2,400 mg 1X PRN PRN PO CONSTIPATION; Start 06/27/18 at 06:00; Stop 06/28/18 at 05:59; Status DC Bisacodyl (Dulcolax Supp) 10 mg 1X PRN PRN [place] CONSTIPATION; Start 06/27/18 at 16:00; Stop 06/28/18 at 15:59; Status DC Zolpidem Tartrate (Ambien) 5 mg PRN QHS PRN PO INSOMNIA, MAY REPEAT IN 1HR; Start 06/26/18 at 09:45 Calcium Carbonate/ Glycine (Tums) 500 mg PRN QID PRN PO INDIGESTION Last administered on 06/28/18at 05:03; Start 06/26/18 at 09:45 Sodium Chloride (Normal Saline Flush) 10 ml QSHIFT PRN IV AFTER MEDS AND BLOOD DRAWS; Start 06/26/18 at 09:45 Acetaminophen (Tylenol) 1,000 mg Q6H PO Last administered on 06/29/18at 08:13; Start 06/27/18 at 09:00 Ondansetron HCl (Zofran) 4 mg Q6HRS IV ; Start 06/26/18 at 12:00; Stop 06/27/18 at 06:01; Status DC Ondansetron HCl (Zofran Odt) 4 mg Q6HRS PO Last administered on 06/27/18at 06:05 ; Start 06/26/18 at 12:00; Stop 06/27/18 at 06:01; Status DC Ondansetron HCl (Zofran) 4 mg PRN Q6HRS PRN IV Nausea/vomiting, 1st choice; Start 06/27/18 at 12:00 Ondansetron HCl (Zofran Odt) 4 mg PRN Q6HRS PRN PO Nausea/vomiting, 1st choice ; Start 06/27/18 at 12:00 Oxycodone HCl (Roxicodone) 5 mg PRN Q4HRS PRN PO Pain score 4-6 Last administered on 06/29/18at 10:03; Start 06/26/18 at 09:45 Oxycodone HCl (Roxicodone) 10 mg PRN Q4HRS PRN PO Pain score 7-10; Start at 09:45 Insulin Human Lispro (HumaLOG) 0-5 UNITS TIDWMEALS SQ Last administered on 06/28at 12:52; Start 06/26/18 at 17:00 Dextrose (Dextrose 50%-Water Syringe) 12.5 gm PRN Q15MIN PRN IV SEE COMMENTS; Start 06/26/18 at 09:45 Cefazolin Sodium/ Dextrose 50 ml @ 100 mls/hr Q6H IV Last administered on 06/26at 10:25; Start 06/26/18 at 09:45; Stop 06/26/18 at 14:10; Status DC Atorvastatin Calcium (Lipitor) 20 mg HS PO Last administered on 06/28/18at 20:46 ; Start 06/26/18 at 21:00 Furosemide (Lasix) 40 mg DAILY PO Last administered on 06/27/18 08:03; Start 06/27/18 at 09:00 Losartan Potassium (Cozaar) 50 mg DAILY PO Last administered on 06/27/18 08:06 ; Start 06/27/18 at 09:00; Stop 06/27/18 at 13:53; Status DC Carvedilol (Coreg) 12.5 mg BIDWMEALS PO Last administered on 06/27/18 08:06; Start 06/26/18 at 17:00 Insulin Human Lispro (HumaLOG) 10 units TIDWMEALS SQ Last administered on at 08:20; Start 06/26/18 at 17:00 Insulin Glargine (Lantus) 30 units QHS SQ Last administered on 06/28/18at 20:50 ; Start 06/26/18 at 21:00 Cefazolin Sodium/ Dextrose 50 ml @ 100 mls/hr 1X ONCE IV Last administered on 06/26/18 22:57; Start 06/26/18 at 22:30; Stop 06/26/18 at 22:59; Status DC Warfarin Sodium (Coumadin) 5 mg 1X WARF ONCE PO Last administered on at 17:00; Start 06/27/18 at 16:00; Stop 06/27/18 at 16:01; Status DC Sodium Polystyrene Sulfonate (Kayexalate) 15 gm 1X ONCE PO Last administered on 06/27/18at 13:49; Start 06/27/18 at 14:00; Stop 06/27/18 at 14:01; Status DC Albuterol Sulfate (Ventolin Neb Soln) 2.5 mg 1X ONCE NEB ; Start 06/27/18 at 13 :45; Stop 06/27/18 at 13:47; Status DC Sodium Polystyrene Sulfonate (Kayexalate) 15 gm 1X ONCE PO ; Start 06/27/18 at 13:45; Stop 06/27/18 at 13:46; Status UNV Lactulose (Lactulose) 20 gm PRN DAILY PRN PO CONSTIPATION; Start 06/27/18 at 14 :30 Warfarin Sodium (Coumadin) 6 mg 1X WARF ONCE PO Last administered on at 17:36; Start 06/28/18 at 16:00; Stop 06/28/18 at 16:01; Status DC Active Scripts Active Reported Lasix (Furosemide) 40 Mg Tablet 40 Mg PO DAILY Atorvastatin Calcium 20 Mg Tablet 20 Mg PO HS Carvedilol 25 Mg Tablet 12.5 Mg PO BIDWMEALS Fish Oil 1,000 Mg Capsule ([place]-3 Fatty Acids/Fish Oil) 1 Each Capsule 1 Each PO DAILY Aspirin 81 Mg Tab.chew 81 Mg PO DAILY Losartan Potassium (Losartan Potassium) 25 Mg Tablet 50 Mg PO DAILY Levemir (Insulin Detemir) 100 Unit/1 Ml Vial 30 Unit SQ HS Novolog (Insulin Aspart) 100 Unit/1 Ml Vial 10 Unit SQ TIDAC Vitals/I & O Vital Sign - Last 24 Hours 06/28/18 06/28/18 06/28/18 06/28/18 12:48 17:00 17:38 17:45 Temp 98.1 98.1 Pulse 75 75 Resp 18 20 B/P (MAP) 115/55 115/55 (75) Pulse Ox 96 O2 Delivery Room Air Room Air Room Air 06/28/18 06/29/18 06/29/18 06/29/18 19:43 05:12 05:53 06:13 Temp 98.7 98.7 Pulse 110 Resp 18 18 16 B/P (MAP) 107/49 (68) Pulse Ox 96 98 O2 Delivery Room Air Room Air Room Air Room Air 06/29/18 06/29/18 06/29/18 06/29/18 08:00 08:00 08:12 10:03 Pulse 103 103 B/P (MAP) 105/57 105/57 (73) O2 Delivery Room Air Room Air Intake and Output 06/28/18 06/28/18 06/29/18 15:00 23:00 07:00 Intake Total 420 ml 320 ml 200 ml Output Total 300 ml 350 ml 350 ml Balance 120 ml -30 ml -150 ml SAHARA MEJIA III DO Jun 29, 2018 10:45
--- NOTE | 2018-06-29 11:18 | NUR ---
Pharmacy Warfarin Dosing Note S:Pharmacy consulted to assist with anticoagulation therapy started 06/26/18 with target INR: 1.6 - 2.5 O:LALITA PETERSON is a 77 year old F with JACQUELINE Allergies:lisinopril Height: 5 feet, 7 inches Weight: 98.001227 kg LABS: Last INR: 1.6 Last HGB: 6.6 Last HCT: 19.8 Last PLT: Ongoing Drug Interactions: A:INR within desired Range. Target Range for this patient is: 1.6 - 2.5 P: Warfarin dose: 2 mg will be given today prior to discharge. Give 2 mg daily. Draw INR on 07/03/18, and request attending physician to dose warfarin for a goal INR 1.6 - 2.5 through end of therapy 08/06/18 (6 weeks of therapy). Indication for warfarin is prevention of VTE after major joint surgery. MIMI VELEZ [facility], 06/29/18 [id number]
--- NOTE | 2018-06-29 13:02 | NUR ---
Notified dtania Ray of dismissal time of [id number]
[2018-06-29] MEDS ORDERED: WARFARIN 2 MG TABLET. PO ONE (14:00)
--- NOTE | 2018-06-29 15:37 | NUR ---
Discharged to [facility] per w/c transportation accompanied by family members
--- NOTE | 2018-07-20 12:55 | PDOC3 ---
Discharge Summary Visit Information Date of Admission: Jun 26, 2018 Date of Discharge: Jun 29, 2018 Admitting Diagnosis: advanced left hip primary degenerative joint disease Brief Hospital Course Allergies Allergies Coded Allergies Type Severity Reaction Last Updated Verified lisinopril Allergy Intermediate 06/26/18 Yes Brief Hospital Course Ms. Bearden is a 77 old female who presented to my outpatient orthopedic surgery clinic with complaints of severe and progressive pain that failed conservative therapies including injections. We had a discussion of the risks, benefits, alternatives to total hip arthroplasty and she elected to proceed. She tolerated surgery well and recovered well from anesthesia in the PACU. She was then taken to the joint Center for care and observation. She did receive PT, OT , DVT and antibiotic prophylaxis. She recovered well from surgery and remained hemodynamically stable and afebrile throughout the hospitalization. Pain was controlled on oral pain medicine at the time of discharge. Good progress was made with therapy throughout the hospitalization, and activities of daily living were accomplished by the patient. The incision was clean dry and intact and the operative extremity had normal motor and sensation. She was anemic postoperatively, her hemoglobin was followed, we were respect all of her decisions. Discharge Information Condition at Discharge: Stable Follow Up: Weeks Disposition/Orders: D/C to Another Facility Scheduled Aspirin (Aspirin) 81 Mg Tab.chew, 81 MG PO DAILY for BLOOD THINNER, (Reported) Entered as Reported by: GILBERTO FERGUSON on 06/12/181520 Last Action: HELD on 06/26/18940 by JONATHAN FARRIS MD Atorvastatin Calcium (Atorvastatin Calcium) 20 Mg Tablet, 20 MG PO HS for FOR CHOLESTEROL, #30 Ref 0 (Reported) Entered as Reported by: GILBERTO FERGUSON on 06/12/181520 Last Action: Continued on 06/26/18940 by JONATHAN FARRIS MD Carvedilol (Carvedilol) 25 Mg Tablet, 12.5 MG PO BIDWMEALS for CARDIAC, ( Reported) Entered as Reported by: GILBERTO FERGUSON on 06/12/181520 Last Action: Converted on 06/26/18940 by JONATHAN FARRIS MD Cyanocobalamin/Fa/Pyridoxine (Folbic Tablet) 1 Each Tablet, 1 TAB PO DAILY for anemia, #100 Prescribed by: CALLIE GONZÁLES on 07/07/18 1106 Epoetin Denny (Procrit) 10,000 Unit/1 Ml Vial, 10,000 UNIT IJ WEEKLY for Anemia of CKD for 42 Days, #6 Prescribed by: NAYANA AVALOS MD on 07/10/18 1316 Ferrous Sulfate (Ferrous Sulfate) 325 Mg Tablet, 1 TAB PO DAILY for anemia, #30 Prescribed by: CALLIE GONZÁLES on 07/07/18 1106 Furosemide (Lasix) 40 Mg Tablet, 40 MG PO DAILY for CONTROL BP, (Reported) Entered as Reported by: GILBERTO FERGUSON on 06/12/181520 Last Action: Continued on 06/26/18940 by JONATHAN FARRIS MD Insulin Aspart (Novolog) 100 Unit/1 Ml Vial, 10 UNIT SQ TIDAC for CONTROL DIABETES, (Reported) Entered as Reported by: CHRISTINA CHRISTIANSON on 08/17/161249 Last Action: Converted on 06/26/18940 by JONATHAN FARRIS MD Insulin Detemir (Levemir) 100 Unit/1 Ml Vial, 30 UNIT SQ HS for CONTROL DIABETES , (Reported) Entered as Reported by: CHRISTINA CHRISTIANSON on 08/17/161249 Last Action: Converted on 06/26/18940 by JONATHAN FARRIS MD Losartan Potassium (Losartan Potassium ) 25 Mg Tablet, 50 MG PO DAILY for CONTROL BP, (Reported) Entered as Reported by: CHRISTINA CHRISTIANSON on 08/17/161249 Last Action: Continued on 06/26/18940 by JONATHAN FARRIS MD [place]-3 Fatty Acids/Fish Oil (Fish Oil 1,000 Mg Capsule) 1 Each Capsule, 1 EACH PO DAILY for SUPPLEMENT, (Reported) Entered as Reported by: GILEBRTO FERGUSON on 06/12/181520 Last Action: HELD on 06/26/18940 by JONATHAN FARRIS MD Scheduled PRN Oxycodone/Apap 5-325 (Percocet 5-325 Mg Tablet ) 1 Each Tablet, 1 TAB PO PRN Q6HRS PRN for PAIN for 6 Days, #18 Prescribed by: NAYANA AVALOS MD on 07/10/18 7739 Patient Instructions Patient Instructions She is to be transferred to [facility]. She can weight-bear as tolerated. She will receive PT and OT there.We will get her started on outpatient therapy as soon as we are able. The patient will be on Coumadin for a month. She can weight-bear as tolerated. Worrisome signs and symptoms that should prompt a phone call to my office were discussed. We'll see her back in 2 weeks, sooner should a problem arise. SOPHIA FARRIS II, MD Jul 20, 2018 12:55
== END 2018-06-29 15:44 | DRG 469 ==
LOC: OPSVCIP 08:27 → 4 SOUTHEST 14:05
PROVIDERS: ADMIT Orthopaedic Surgery Sports Medicine; ATTEND Orthopaedic Surgery Sports Medicine
PROC: 0SRB01Z Replacement of Left Hip Joint with Metal Synthetic Substitute, Open Approach (ICD-10-PCS; principal; 2018-06-26 10:00)
DX: M16.12 Unilateral primary osteoarthritis, left hip (principal); N17.0 Acute kidney failure with tubular necrosis; N18.4 Chronic kidney disease, stage 4 (severe); E87.5 Hyperkalemia; E11.22 Type 2 diabetes mellitus with diabetic chronic kidney disease; I12.9 Hypertensive chronic kidney disease with stage 1 through stage 4 chronic kidney disease, or unspecified chronic kidney disease; K59.00 Constipation, unspecified; I35.0 Nonrheumatic aortic (valve) stenosis; R33.9 Retention of urine, unspecified; Z95.3 Presence of xenogenic heart valve; Z83.3 Family history of diabetes mellitus; Z82.49 Family history of ischemic heart disease and other diseases of the circulatory system; Z88.8 Allergy status to other drugs, medicaments and biological substances
CPT/HCPCS: 36415; 72170; 80048; 82436; 82570; 82607; 82962; 83540; 83550; 84133; 84300; 85014; 85018; 85610; 85730; 88304; 88311; 93005; A7015; J0171; J0330; J0696; J1100; J1815; J1885; J2001; J2270; J2405; J2704; J2795; J3010; J7030; J7120; Q0162; 97150; 97530; 97535

== ENCOUNTER 2018-07-03 07:04 | Inpatient (IN) | payer MEDICARE ==
[~2018-07-03] VITALS: Ht 170.2 cm; Wt 99.8 kg
[~2018-07-03 07:04] MED LIST changes: -ACETAMINOPHEN 500 MG TABLET PO PRN; -DEXAMETHASONE SOD PHOS 20 MG/5 ML VIAL. ONE; -HYDROmorphone 2 MG/ML VIAL IV PRN; -IV RINGERS,LACTATED 1000ML 1,000 ML IV SCH; -LIDOCAINE 1% PF 2 ML VIAL. ID PRN; -LIDOCAINE 2% PF 5 ML VIAL. ONE; -MORPHINE SULFATE 2 MG/ML VIAL. IV PRN; -MORPHINE SULFATE 5 MG, KETOROLAC 30MG VIAL 30 MG, ROPIVacaine 0.5% PF 60 ML, EPINEPHrin... INT ART ONE; -ONDANSETRON PF 4 MG/2 ML VIAL. IV PRN; -ONDANSETRON PF 4 MG/2 ML VIAL. ONE; -PROCHLORPERAZINE 10 MG/2 ML VIAL. IV PRN; -PROPOFOL 20 ML IV ONE; -ROCURONIUM 50 MG/5 ML VIAL. ONE; -SUCCINYLCHOLINE 200 MG/10 ML VIAL. ONE; -fentaNYL PF VIAL 100 MCG/2 ML VIAL IV PRN; -fentaNYL PF VIAL 100 MCG/2 ML VIAL ONE
[2018-07-03 07:47] LABS: BASO % 0 % (0-3); EOS # 0.4 x10^3/uL (0.0-0.7); EOS % 5 % (0-3); LYMPH # 2.4 x10^3/uL (1.0-4.8); LYMPH % 31 % (24-48); MEAN CORPUSCULAR HEMOGLOBIN 29 pg (25-35); MEAN CORPUSCULAR HGB CONC 33 g/dL (31-37); MEAN CORPUSCULAR VOLUME 89 fL (79-100); MONO # 0.9 x10^3/uL (0.0-1.1); MONO % 11 % (0-9); NEUT # 4.2 x10^3uL (1.8-7.7); NEUT % 54 % (31-73); PLATELET COUNT 253 x10^3/uL (140-400); RED BLOOD COUNT 2.13 x10^6/uL (3.50-5.40); RED CELL DISTRIBUTION WIDTH 14.8 % (11.5-14.5); WHITE BLOOD COUNT 7.9 x10^3/uL (4.0-11.0)
[2018-07-03 07:52] LABS: PROTHROMBIN TIME PATIENT 15.5 SEC (11.7-14.0)
[2018-07-03 07:53] LABS: CALCIUM 8.9 mg/dL (8.5-10.1); CREATININE 3.5 mg/dL (0.6-1.0); GFR 15.3; HEMATOCRIT 18.9 % (36.0-47.0); HEMOGLOBIN 6.2 g/dL (12.0-15.5); POTASSIUM 5.4 mmol/L (3.5-5.1)
[2018-07-03 07:58] LABS: ALBUMIN 2.3 g/dL (3.4-5.0); ALBUMIN/GLOBULIN RATIO 0.5 (1.0-1.7); TOTAL BILIRUBIN 0.4 mg/dL (0.2-1.0); TOTAL PROTEIN 6.5 g/dL (6.4-8.2)
[2018-07-03] MEDS ORDERED: ONDANSETRON PF 4 MG/2 ML VIAL. IV PRN (08:15)
--- NOTE | 2018-07-03 08:20 | PHYS DOC ---
Past Medical History Past Medical History: Diabetes-Type II, High Cholesterol, Hypertension, Renal Failure Additional Past Medical Histor: CKD Past Surgical History: Hip Replacement Additional Past Surgical Histo: Aortic Valve Replacement Additional Information: quit smoking 40 years ago Alcohol Use: Rarely Drug Use: None Adult General Chief Complaint Chief Complaint: ABNORMAL LABS HPI HPI 77-year-old female presents with a low blood count. Patient had hip replacement surgery just a few days ago and is recovering at [facility]. They checked a routine H&H and it was 6 and 18 day or so they sent her here for further evaluation. Patient states her bowel movements have been normal she denies any melena or hematochezia. She states other than pain in her left hip she is not hurting anywhere. She's not had any cough or dysuria. She denies any fever chills or sweats.[] Review of Systems Review of Systems Constitutional: Denies fever or chills [] Eyes: Denies change in visual acuity, redness, or eye pain [] HENT: Denies nasal congestion or sore throat [] Respiratory: Denies cough or shortness of breath [] Cardiovascular: No additional information not addressed in HPI [] GI: Denies abdominal pain, nausea, vomiting, bloody stools or diarrhea [] : Denies dysuria or hematuria [] Musculoskeletal: Pain left hip[] Integument: Appears pale[] Neurologic: Denies headache, focal weakness or sensory changes [] Endocrine: Denies polyuria or polydipsia [] All other systems were reviewed and found to be within normal limits, except as documented in this note. Current Medications Current Medications Current Medications Medications (Trade) Dose Ordered Sig/Rosina Start Time Stop Time Status Last Admin Dose Admin Ondansetron HCl (Zofran) 4 mg PRN Q8HRS PRN 07/03/18 08:15 07/04/18 08:14 Allergies Allergies Allergies Coded Allergies Type Severity Reaction Last Updated Verified lisinopril Allergy Intermediate 06/26/18 Yes Physical Exam Physical Exam Constitutional: Well developed, well nourished, mild distress, non-toxic appearance. [] HENT: Normocephalic, atraumatic, bilateral external ears normal, oropharynx moist, no oral exudates, nose normal. [] Eyes: Conjunctiva pale[] Neck: Normal range of motion, no tenderness, supple, no stridor. [] Cardiovascular:Heart rate regular rhythm, no murmur [] Lungs & Thorax: Bilateral breath sounds clear to auscultation [] Abdomen: Bowel sounds normal, soft, no tenderness, no masses, no pulsatile masses. [] Skin: Warm, dry, no erythema, no rash. [] Back: No tenderness, no CVA tenderness. [] Extremities: No tenderness, no cyanosis, no clubbing, ROM intact, no edema. [] Neurologic: Alert and oriented X 3, normal motor function, normal sensory function, no focal deficits noted. [] Psychologic: Depressed affect. [] Current Patient Data Vital Signs Vital Signs Date Time Temp Pulse Resp B/P (MAP) Pulse Ox O2 Delivery O2 Flow Rate FiO2 07/03/18 07:11 98.9 72 16 130/60 (83) 100 Room Air 98.9 Lab Values Laboratory Tests Test 07/03/18 07:35 White Blood Count 7.9 x10^3/uL (4.0-11.0) Red Blood Count 2.13 x10^6/uL (3.50-5.40) L Hemoglobin 6.2 g/dL (12.0-15.5) *L Hematocrit 18.9 % (36.0-47.0) *L Mean Corpuscular Volume 89 fL (79-100) Mean Corpuscular Hemoglobin 29 pg (25-35) Mean Corpuscular Hemoglobin Concent 33 g/dL (31-37) Red Cell Distribution Width 14.8 % (11.5-14.5) H Platelet Count 253 x10^3/uL (140-400) Neutrophils (%) (Auto) 54 % (31-73) Lymphocytes (%) (Auto) 31 % (24-48) Monocytes (%) (Auto) 11 % (0-9) H Eosinophils (%) (Auto) 5 % (0-3) H Basophils (%) (Auto) 0 % (0-3) Neutrophils # (Auto) 4.2 x10^3uL (1.8-7.7) Lymphocytes # (Auto) 2.4 x10^3/uL (1.0-4.8) Monocytes # (Auto) 0.9 x10^3/uL (0.0-1.1) Eosinophils # (Auto) 0.4 x10^3/uL (0.0-0.7) Basophils # (Auto) 0.0 x10^3/uL (0.0-0.2) Prothrombin Time 15.5 SEC (11.7-14.0) H Prothrombin Time INR 1.3 (0.8-1.1) H Sodium Level 140 mmol/L (136-145) Potassium Level 5.4 mmol/L (3.5-5.1) H Chloride Level 106 mmol/L (98-107) Carbon Dioxide Level 25 mmol/L (21-32) Anion Gap 9 (6-14) Blood Urea Nitrogen 72 mg/dL (7-20) H Creatinine 3.5 mg/dL (0.6-1.0) H Estimated GFR (Cockcroft-Gault) 15.3 BUN/Creatinine Ratio 21 (6-20) H Glucose Level 81 mg/dL (70-99) Calcium Level 8.9 mg/dL (8.5-10.1) Total Bilirubin 0.4 mg/dL (0.2-1.0) Aspartate Amino Transferase (AST) 25 U/L (15-37) Alanine Aminotransferase (ALT) 6 U/L (14-59) L Alkaline Phosphatase 66 U/L (46-116) Total Protein 6.5 g/dL (6.4-8.2) Albumin 2.3 g/dL (3.4-5.0) L Albumin/Globulin Ratio 0.5 (1.0-1.7) L Laboratory Tests 07/03/18 07:35 Laboratory Tests 07/03/18 07:35 EKG EKG [] Radiology/Procedures Radiology/Procedures [] Course & Med Decision Making Course & Med Decision Making Pertinent Labs and Imaging studies reviewed. (See chart for details) [ED course: Evaluation reveals a 77-year-old female with a hemoglobin of 6.2. This is likely related to operative blood loss. Complicating factor with this patient is that she is a [employer] and unable to take blood products. It also would appear that her kidney function has worsened slightly since 2 days ago. She does have chronic kidney disease so I'm sure there is a portion of her anemia that is related to her chronic kidney disease. We will go ahead and admit her to the hospital and have nephrology on board as well.] Dragon Disclaimer Dragon Disclaimer This electronic medical record was generated, in whole or in part, using a voice recognition dictation system. Departure Departure Impression: Primary Impression: Acute anemia Disposition: ADMITTED INPATIENT Admitting Physician: Carolyn Ivan Condition: STABLE Referrals: NO PCP (PCP) MELODY NARANJO DO Jul 03, 2018 08:20
[2018-07-03] MEDS ORDERED: HYDROcodone/APAP 5/325MG 1 TAB TABLET PO ONE (09:15)
--- NOTE | 2018-07-03 10:30 | NUR ---
Pt arrived to unit by jaycob, from ED, report received from MONROE Bhatia. Admission Dx of Acute Anemia with a Hgb of 6.2 and left hip pain s/p total hip replacement. Pt is a [employer], she has been explained the risks of not receiving a blood transfusion and the need for it but Pt continues to decline. Pt denies pain at time of admission, states she received some "good" pain medicine at ED and feels zero pain. AVF COOKIE with audible bruit and weak but palpable thrill. Pt considered at risk for falls, Pt states she has not been able to walk since after surgery. Consult to Dr Alexander called in, Dr Ivan aware of new admission. Allergies verified, admission assessment in progress.
[2018-07-03 11:00] VITALS: BP 117/62
--- NOTE | 2018-07-03 11:20 | HP ---
ADMIT DATE: 07/03/2018 CHIEF COMPLAINT: Weakness. HISTORY OF PRESENT ILLNESS: The patient is a pleasant elderly female who we just discharged. She was discharged to long-term after undergoing a hip replacement. For the past couple of days, she has been relatively stable, but today she was weak. They checked her hemoglobin, it was down to 6 and they sent her to the ER for evaluation. She rates her symptoms as 7/10. She has associated anxiety. While in the ER, she is also noted to have some vuybn-as-ysbeofg renal failure with a creatinine of 3.5. She does indeed have a left arm fistula, although they have never really officially started dialysis, has been in there for a couple of months. I discussed the case with ER physician. We are going to admit the patient and consult Nephrology. I also wanted to transfuse her, but apparently she refuses because of yazidism reasons. PAST MEDICAL HISTORY: Chronic anemia; diabetes; recent hip replacement; end-stage renal disease, but she has not started dialysis yet, although she does have a left arm graft; hypertension; renal failure; hyperlipidemia; aortic valve replacement. ALLERGIES: LISINOPRIL. FAMILY HISTORY: Coronary artery disease. SOCIAL HISTORY: She does not drink, smoke or take drugs. MEDICATIONS: Reviewed, please refer to MRAD. She is on 8 home meds including atorvastatin, fish oil, carvedilol, losartan, aspirin, Lasix, NovoLog, and Levemir. REVIEW OF SYSTEMS: GENERAL: She complains of weakness. SKIN: No bruising, hair changes or rashes. EYES: No blurred, double or loss of vision. NOSE AND THROAT: No history of nosebleeds, hoarseness or sore throat. HEART: No history of palpitations, chest pain or shortness of breath on exertion. LUNGS: Denies cough, hemoptysis, wheezing or shortness of breath. GASTROINTESTINAL: Denies changes in appetite, nausea, vomiting, diarrhea or constipation. GENITOURINARY: No history of frequency, urgency, hesitancy or nocturia. NEUROLOGIC: Denies history of numbness, tingling, tremor or weakness. PSYCHIATRIC: No history of panic, anxiety or depression. ENDOCRINE: No history of heat or cold intolerance, polyuria or polydipsia. EXTREMITIES: Denies muscle weakness, joint pain, pain on walking or stiffness. PHYSICAL EXAMINATION: VITAL SIGNS: Temperature afebrile, pulse 72, respirations 16, blood pressure 130/60, O2 sat 100%. GENERAL: She is alert, cooperative, weak. She is pale. HEART: Distant S1, S2. LUNGS: Clear. ABDOMEN: Soft. EXTREMITIES: Trace edema. The hip has clean, dry and intact dressing. SKIN: No rashes, but she is pale. ENDOCRINE: No thyromegaly. LYMPHATICS: No cervical nodes. HEMATOPOIETIC: No bruising. PSYCHIATRIC: She is stable. LABORATORY DATA: White count 8, hemoglobin 6.2, platelets 253. Potassium is high at 5.4, BUN and creatinine are high at 72 and 3.5 respectively. Albumin is low at 2.3. ASSESSMENT AND PLAN: Obmem-[id number] renal failure with probable end-stage renal disease, I suspect she may need dialysis. She does already have a graft. We will go ahead and consult Nephrology and consider starting dialysis. I wanted to transfuse her, but she refuses for yazidism reasons. Frequent labs, PT, OT, home meds, wound care, DVT prophylaxis. Full code. PROGNOSIS: Guarded. SAHARA MEJIA DO DR: VIKKI/rubén JOB#: [id number] / [id number]
--- NOTE | 2018-07-03 13:10 | PDOC2 ---
CONSULT Date of Consult Date of Consult DATE: 07/03/18 TIME: 13:01 Reason for Consult Reason for Consult: RENAL FAILURE Referring Physician Referring Physician: ROBERTO Identification/Chief Complaint Chief Complaint WEAKNESS Source Source: Chart review, Patient History of Present Illness Reason for Visit: THIS IS A 77 YR OLD WITH SEVERE ANEMIA. SHE IS NOTED TO HAVE A HGB OF 6.2 AND HAD UNDERGONE A LEFT HIP ARTHROPLASTY A FEW DAYS AGO. SHE HAS COMPLAINED BOUT SEVERE WEAKNESS. UNFORTUNATELY SHE WILL NOT ACCEPT AND BLOOD FOR [facility] REASONS. HER CR IS 3.5 WITH A K OF 5.4. CR SIMILAR TO EARLIER THIS YEAR AND SHE IS NOTED TO HAVE STAGE 4 CKD FOR WHICH SHE SEE DR OWEN AT [facility]. SHE HAS A LEFT ARM AVF PLACED EARLIER THIS YEAR IN [facility] IS ANTICIPATED IN THE NEAR FUTURE. APPETITE REMAINS GOOD PER PT BUT ALBUMIN OF 2.3. SUSPECT SHE HAS PROTEIN LOSS DUE TO DM RELATED CKD Past Medical History Cardiovascular: HTN, Aortic stenosis Pulmonary: No pertinent hx GI: No pertinent hx Heme/Onc: No pertinent hx Hepatobiliary: No pertinent hx Psych: No pertinent hx Musculoskeletal: Osteoarthritis Rheumatologic: No pertinent hx Infectious disease: No pertinent hx Renal/: Chronic renal insuff Endocrine: Diabetes Past Surgical History Past Surgical History LEFT ARM BB AVF Past Surgical History: Total hip replacement, Other Family History Family History: Diabetes, Heart Disease, High Cholestrol, Hypertension Social History ALCOHOL: none Drugs: None Lives: Alone Domestic Violence: Neg Current Problem List Problem List Problems Medical Problems: (1) Acute anemia Status: Acute Current Medications Current Medications Current Medications Ondansetron HCl (Zofran) 4 mg PRN Q8HRS PRN IV NAUSEA/VOMITING; Start 07/03/18 at 08:15; Stop 07/04/18 at 08:14 Acetaminophen/ Hydrocodone Bitart (Lortab 5/325) 1 tab 1X ONCE PO Last administered on 07/03/18at 09:17; Start 07/03/18 at 09:15; Stop 07/03/18 at 09:16 ; Status DC Active Scripts Active Reported Lasix (Furosemide) 40 Mg Tablet 40 Mg PO DAILY Atorvastatin Calcium 20 Mg Tablet 20 Mg PO HS Carvedilol 25 Mg Tablet 12.5 Mg PO BIDWMEALS Fish Oil 1,000 Mg Capsule ([place]-3 Fatty Acids/Fish Oil) 1 Each Capsule 1 Each PO DAILY Aspirin 81 Mg Tab.chew 81 Mg PO DAILY Losartan Potassium (Losartan Potassium) 25 Mg Tablet 50 Mg PO DAILY Levemir (Insulin Detemir) 100 Unit/1 Ml Vial 30 Unit SQ HS Novolog (Insulin Aspart) 100 Unit/1 Ml Vial 10 Unit SQ TIDAC Allergies Allergies: Coded Allergies: lisinopril (Verified Allergy, Intermediate, 06/26/18) ROS General: YES: Fatigue PSYCHOLOGICAL ROS: YES: Anxiety, Depression Eyes: Yes Decreased vision HEENT: YES: Heacaches ALLERGY AND IMMUNOLOGY: YES: Seasonal Allergies Respiratory: YES: Cough Cardiovascular: yes Lt Headedness Gastrointestinal: Yes Constipation Genitourinary: YES Other (NOCTURIA) Musculoskeletal: Yes Muscular Weakness Skin: Yes Dry Skin Physical Exam General: Alert, Oriented X3, Cooperative, No acute distress HEENT: Atraumatic, PERRLA Lungs: Clear to auscultation Heart: Regular rate Abdomen: Normal bowel sounds, Soft Skin: No breakdown Neuro: Normal speech, Sensation intact, Cranial nerves 3-12 NL Psych/Mental Status: Mental status NL, Mood NL MUSCULOSKELETAL: No joint tenderness, No deformity, No swelling Vitals VITALS Vital Signs Date Time Temp Pulse Resp B/P (MAP) Pulse Ox O2 Delivery O2 Flow Rate FiO2 07/03/18 11:00 98.5 69 18 117/62 (80) 99 Room Air 98.5 Labs Labs Laboratory Tests Test 07/03/18 07:35 07/03/18 09:57 07/03/18 11:35 White Blood Count 7.9 x10^3/uL (4.0-11.0) Red Blood Count 2.13 x10^6/uL (3.50-5.40) Hemoglobin 6.2 g/dL (12.0-15.5) Hematocrit 18.9 % (36.0-47.0) Mean Corpuscular Volume 89 fL (79-100) Mean Corpuscular Hemoglobin 29 pg (25-35) Mean Corpuscular Hemoglobin Concent 33 g/dL (31-37) Red Cell Distribution Width 14.8 % (11.5-14.5) Platelet Count 253 x10^3/uL (140-400) Neutrophils (%) (Auto) 54 % (31-73) Lymphocytes (%) (Auto) 31 % (24-48) Monocytes (%) (Auto) 11 % (0-9) Eosinophils (%) (Auto) 5 % (0-3) Basophils (%) (Auto) 0 % (0-3) Neutrophils # (Auto) 4.2 x10^3uL (1.8-7.7) Lymphocytes # (Auto) 2.4 x10^3/uL (1.0-4.8) Monocytes # (Auto) 0.9 x10^3/uL (0.0-1.1) Eosinophils # (Auto) 0.4 x10^3/uL (0.0-0.7) Basophils # (Auto) 0.0 x10^3/uL (0.0-0.2) Prothrombin Time 15.5 SEC (11.7-14.0) Prothromb Time International Ratio 1.3 (0.8-1.1) Sodium Level 140 mmol/L (136-145) Potassium Level 5.4 mmol/L (3.5-5.1) Chloride Level 106 mmol/L (98-107) Carbon Dioxide Level 25 mmol/L (21-32) Anion Gap 9 (6-14) Blood Urea Nitrogen 72 mg/dL (7-20) Creatinine 3.5 mg/dL (0.6-1.0) Estimated GFR (Cockcroft-Gault) 15.3 BUN/Creatinine Ratio 21 (6-20) Glucose Level 81 mg/dL (70-99) Calcium Level 8.9 mg/dL (8.5-10.1) Total Bilirubin 0.4 mg/dL (0.2-1.0) Aspartate Amino Transf (AST/SGOT) 25 U/L (15-37) Alanine Aminotransferase (ALT/SGPT) 6 U/L (14-59) Alkaline Phosphatase 66 U/L (46-116) Total Protein 6.5 g/dL (6.4-8.2) Albumin 2.3 g/dL (3.4-5.0) Albumin/Globulin Ratio 0.5 (1.0-1.7) Glucose (Fingerstick) 71 mg/dL (70-99) 124 mg/dL (70-99) Laboratory Tests Test 07/03/18 07:35 07/03/18 09:57 07/03/18 11:35 White Blood Count 7.9 x10^3/uL (4.0-11.0) Red Blood Count 2.13 x10^6/uL (3.50-5.40) Hemoglobin 6.2 g/dL (12.0-15.5) Hematocrit 18.9 % (36.0-47.0) Mean Corpuscular Volume 89 fL (79-100) Mean Corpuscular Hemoglobin 29 pg (25-35) Mean Corpuscular Hemoglobin Concent 33 g/dL (31-37) Red Cell Distribution Width 14.8 % (11.5-14.5) Platelet Count 253 x10^3/uL (140-400) Neutrophils (%) (Auto) 54 % (31-73) Lymphocytes (%) (Auto) 31 % (24-48) Monocytes (%) (Auto) 11 % (0-9) Eosinophils (%) (Auto) 5 % (0-3) Basophils (%) (Auto) 0 % (0-3) Neutrophils # (Auto) 4.2 x10^3uL (1.8-7.7) Lymphocytes # (Auto) 2.4 x10^3/uL (1.0-4.8) Monocytes # (Auto) 0.9 x10^3/uL (0.0-1.1) Eosinophils # (Auto) 0.4 x10^3/uL (0.0-0.7) Basophils # (Auto) 0.0 x10^3/uL (0.0-0.2) Prothrombin Time 15.5 SEC (11.7-14.0) Prothromb Time International Ratio 1.3 (0.8-1.1) Sodium Level 140 mmol/L (136-145) Potassium Level 5.4 mmol/L (3.5-5.1) Chloride Level 106 mmol/L (98-107) Carbon Dioxide Level 25 mmol/L (21-32) Anion Gap 9 (6-14) Blood Urea Nitrogen 72 mg/dL (7-20) Creatinine 3.5 mg/dL (0.6-1.0) Estimated GFR (Cockcroft-Gault) 15.3 BUN/Creatinine Ratio 21 (6-20) Glucose Level 81 mg/dL (70-99) Calcium Level 8.9 mg/dL (8.5-10.1) Total Bilirubin 0.4 mg/dL (0.2-1.0) Aspartate Amino Transf (AST/SGOT) 25 U/L (15-37) Alanine Aminotransferase (ALT/SGPT) 6 U/L (14-59) Alkaline Phosphatase 66 U/L (46-116) Total Protein 6.5 g/dL (6.4-8.2) Albumin 2.3 g/dL (3.4-5.0) Albumin/Globulin Ratio 0.5 (1.0-1.7) Glucose (Fingerstick) 71 mg/dL (70-99) 124 mg/dL (70-99) Assessment/Plan Assessment/Plan IMP SEVERE ANEMIA DM II HTN STAGE 4 CKD-CR NO DIFFERENT THAN EARLIER THIS YEAR DECONDITIONING DUE TO ANEMIA S/P LEFT RECENT HIP REPLACEMENT PLAN CHECK IRON START ARANESP CAN PROB HOLD OFF ON STARTING HD LEFT ARM AVF IS POORLY DEVELOPED AND NOT READY FOR ACCESS UNFORTUNATELY SHE WILL NOT ACCEPT PRBC DUE TO ADVENTIST REASONS WILL FOLLOW IZZY MCLEOD MD Jul 03, 2018 13:10
[2018-07-03 15:00] VITALS: BP 125/63
[2018-07-03] MEDS: IV NORMAL SALINE 1000ML BAG 1,000 ML IV SCH (15:18)
[2018-07-03] MEDS ORDERED: DEXTROSE 50% 25 GM / 50ML DISP.SYRIN. IV PRN (16:45)
[2018-07-03] MEDS: INSULIN LISPRO 300 UNITS/3 ML INSULN.PEN. SQ SCH ×2 (17:00→17:10)
[2018-07-03] MEDS: CARVEDILOL 12.5 MG TABLET. PO SCH (17:07)
[2018-07-03 19:00] VITALS: BP 125/59
[2018-07-03] MEDS: ATORVASTATIN CALCIUM 20 MG TABLET PO SCH (20:25)
[2018-07-03] MEDS: oxyCODONE/APAP 5/325 1 TAB TABLET PO PRN (20:26)
[2018-07-03] MEDS ORDERED: CALCIUM CARBONATE 500 MG TAB.CHEW PO PRN (20:30)
[2018-07-03] MEDS ORDERED: DARBEPOETIN ALFA 60 MCG/0.3 ML DISP.SYRIN. SQ SCH (21:00)
[2018-07-03] MEDS: INSULIN GLARGINE 300 UNITS/3 ML INSULN.PEN. SQ SCH (21:55)
[2018-07-03 23:00] VITALS: BP 100/38
[2018-07-04] VITALS (7 sets, daily range): BP systolic 80–132; BP diastolic 30–64
[2018-07-04] MEDS: IV NORMAL SALINE 1000ML BAG 1,000 ML IV SCH ×2 (04:27→17:20)
[2018-07-04] MEDS: INSULIN LISPRO 300 UNITS/3 ML INSULN.PEN. SQ SCH ×6 (08:00→16:53)
[2018-07-04 08:49] LABS: BASO % 0 % (0-3); EOS # 0.4 x10^3/uL (0.0-0.7); EOS % 4 % (0-3); LYMPH # 2.6 x10^3/uL (1.0-4.8); LYMPH % 31 % (24-48); MEAN CORPUSCULAR HEMOGLOBIN 29 pg (25-35); MEAN CORPUSCULAR HGB CONC 33 g/dL (31-37); MEAN CORPUSCULAR VOLUME 89 fL (79-100); MONO # 0.9 x10^3/uL (0.0-1.1); MONO % 11 % (0-9); NEUT # 4.7 x10^3uL (1.8-7.7); NEUT % 54 % (31-73); PLATELET COUNT 257 x10^3/uL (140-400); RED BLOOD COUNT 2.12 x10^6/uL (3.50-5.40); RED CELL DISTRIBUTION WIDTH 15.1 % (11.5-14.5); WHITE BLOOD COUNT 8.6 x10^3/uL (4.0-11.0)
[2018-07-04 08:59] LABS: HEMOGLOBIN 6.1 g/dL (12.0-15.5)
[2018-07-04 09:00] LABS: HEMATOCRIT 18.8 % (36.0-47.0)
[2018-07-04 09:06] LABS: ALBUMIN 2.3 g/dL (3.4-5.0); ALBUMIN/GLOBULIN RATIO 0.6 (1.0-1.7); CALCIUM 8.7 mg/dL (8.5-10.1); CREATININE 3.5 mg/dL (0.6-1.0); GFR 15.3; POTASSIUM 5.1 mmol/L (3.5-5.1); TOTAL BILIRUBIN 0.3 mg/dL (0.2-1.0); TOTAL PROTEIN 6.1 g/dL (6.4-8.2)
[2018-07-04] MEDS: CARVEDILOL 12.5 MG TABLET. PO SCH ×2 (09:07→17:22)
[2018-07-04] MEDS: ASPIRIN CHEWABLE 81 MG TABLET. PO SCH (09:07)
[2018-07-04] MEDS: LOSARTAN POTASSIUM 50 MG TABLET. PO SCH (09:07)
--- NOTE | 2018-07-04 09:27 | NUR ---
Rehab screen completed. Pt has had a recent JACQUELINE and would benefit from PT/OT eval and treat, please order if you agree. Addendum: 07/04/18 at 0928 by SHAJI JOHNSON PT Amended: Links added.
--- NOTE | 2018-07-04 10:49 | NUR ---
SW following. Discussed with RN, pt is Jehovah oriental orthodox. Came from [facility], will needs insurance auth to return. RN advised pt may need dialysis, SW advised of labs that need to be done in order for a chair time to be set up. SW will continue to follow for discharge planning needs.
[2018-07-04] MEDS: oxyCODONE/APAP 5/325 1 TAB TABLET PO PRN ×2 (11:00→19:42)
--- NOTE | 2018-07-04 11:17 | SNU/HH DC ---
DISCHARGE ORDERS DISCHARGE INFORMATION: FINAL DIAGNOSIS Problems Medical Problems: (1) Acute anemia Status: Acute CONDITION ON DISCHARGE: Stable CODE STATUS: Code Status: Full CUSTODIAL: SNF STAY <30 DAYS: Yes HOSPICE: HOSPICE: No HOSPICE EVAL & TREAT: No POST DISCHARGE ORDERS: ACTIVITY ORDERS: Activity as tolerated WEIGHT BEARING STATUS: As tolerated BATHING ORDERS: Shower-keep dressing dry DIET AFTER DISCHARGE: Cardiac WOUND/INCISION CARE: Other, see below (Wound care per surgeon) TREATMENT/EQUIPMENT ORDERS: ADAPTIVE EQUIPMENT NEEDED: None Physical Therapy For: Evalulation/Treatment Occupational Therapy For: Evaluation/Treatment DISCHARGE MEDICATIONS: Home Meds Reported Medications Furosemide (LASIX) 40 Mg Tablet, 40 MG PO DAILY for CONTROL BP, TAB 06/12/18 Atorvastatin Calcium (ATORVASTATIN CALCIUM) 20 Mg Tablet, 20 MG PO HS for FOR CHOLESTEROL, #30 TAB 0 Refills 06/12/18 Carvedilol (CARVEDILOL) 25 Mg Tablet, 12.5 MG PO BIDWMEALS for CARDIAC, TAB 06/12/18 Garland-3 Fatty Acids/Fish Oil (FISH OIL 1,000 MG CAPSULE) 1 Each Capsule, 1 EACH PO DAILY for SUPPLEMENT, CAP 06/12/18 Aspirin (ASPIRIN) 81 Mg Tab.chew, 81 MG PO DAILY for BLOOD THINNER, TAB.CHEW 06/12/18 Losartan Potassium (LOSARTAN POTASSIUM ) 25 Mg Tablet, 50 MG PO DAILY for CONTROL BP, TAB 08/17/16 Insulin Detemir (LEVEMIR) 100 Unit/1 Ml Vial, 30 UNIT SQ HS for CONTROL DIABETES , VIAL 08/17/16 Insulin Aspart (NOVOLOG) 100 Unit/1 Ml Vial, 10 UNIT SQ TIDAC for CONTROL DIABETES, VIAL 08/17/16 SAHARA MEJIA III DO Jul 04, 2018 11:17
--- NOTE | 2018-07-04 11:54 | PDOC ---
PROGRESS NOTES Chief Complaint Chief Complaint ESRD Anemia with Hgb <7.0 (refusing blood products- sabianist reasons)\ Hyperkalemia Recent hip arthroplasty DM2 Eventual HD, not currently requiring HLD History of Present Illness History of Present Illness Pt was seen and examined this morning She was pleasant upon our arrival We received notice of Hgb of 6.2, discussed this with patient and she continues to not accept blood products for sabianist reasons Discussed treatment at home for her chronic anemia She expressed a desire to hopefully be discharged soon Vitals Vitals Vital Signs Date Time Temp Pulse Resp B/P (MAP) Pulse Ox O2 Delivery O2 Flow Rate FiO2 07/04/18 11:00 Room Air 07/04/18 09:07 74 117/52 07/04/18 07:00 98.2 18 96 98.2 Physical Exam General: Alert, Oriented X3, Cooperative, No acute distress Heart: Regular rate, No murmurs Lungs: Clear Abdomen: Normal bowel sounds, Soft Extremities: No clubbing, No edema Skin: No breakdown Labs LABS Laboratory Tests Test 07/03/18 16:36 07/03/18 21:02 07/04/18 08:25 07/04/18 08:44 Glucose (Fingerstick) 371 mg/dL (70-99) 197 mg/dL (70-99) 133 mg/dL (70-99) White Blood Count 8.6 x10^3/uL (4.0-11.0) Red Blood Count 2.12 x10^6/uL (3.50-5.40) Hemoglobin 6.1 g/dL (12.0-15.5) Hematocrit 18.8 % (36.0-47.0) Mean Corpuscular Volume 89 fL (79-100) Mean Corpuscular Hemoglobin 29 pg (25-35) Mean Corpuscular Hemoglobin Concent 33 g/dL (31-37) Red Cell Distribution Width 15.1 % (11.5-14.5) Platelet Count 257 x10^3/uL (140-400) Neutrophils (%) (Auto) 54 % (31-73) Lymphocytes (%) (Auto) 31 % (24-48) Monocytes (%) (Auto) 11 % (0-9) Eosinophils (%) (Auto) 4 % (0-3) Basophils (%) (Auto) 0 % (0-3) Neutrophils # (Auto) 4.7 x10^3uL (1.8-7.7) Lymphocytes # (Auto) 2.6 x10^3/uL (1.0-4.8) Monocytes # (Auto) 0.9 x10^3/uL (0.0-1.1) Eosinophils # (Auto) 0.4 x10^3/uL (0.0-0.7) Basophils # (Auto) 0.0 x10^3/uL (0.0-0.2) Sodium Level 143 mmol/L (136-145) Potassium Level 5.1 mmol/L (3.5-5.1) Chloride Level 109 mmol/L (98-107) Carbon Dioxide Level 23 mmol/L (21-32) Anion Gap 11 (6-14) Blood Urea Nitrogen 69 mg/dL (7-20) Creatinine 3.5 mg/dL (0.6-1.0) Estimated GFR (Cockcroft-Gault) 15.3 BUN/Creatinine Ratio 20 (6-20) Glucose Level 100 mg/dL (70-99) Calcium Level 8.7 mg/dL (8.5-10.1) Iron Level 32 ug/dL (50-170) Total Iron Binding Capacity 137 ug/dL (250-450) Iron Saturation 23 % (15-34) Total Bilirubin 0.3 mg/dL (0.2-1.0) Aspartate Amino Transf (AST/SGOT) 16 U/L (15-37) Alanine Aminotransferase (ALT/SGPT) 6 U/L (14-59) Alkaline Phosphatase 59 U/L (46-116) Total Protein 6.1 g/dL (6.4-8.2) Albumin 2.3 g/dL (3.4-5.0) Albumin/Globulin Ratio 0.6 (1.0-1.7) Test 07/04/18 11:35 Glucose (Fingerstick) 81 mg/dL (70-99) Review of Systems Review of Systems Pt reports some mild weakness PT denies CP, SOB, [place], n/v/d Assessment and Plan Assessmemt and Plan Problems Medical Problems: (1) Acute anemia Status: Acute Assessment: ESRD Anemia with Hgb <7.0 (refusing blood products- sabianist reasons)\ Hyperkalemia Recent hip arthroplasty DM2 Eventual HD, not currently requiring HLD Plan: Hopeful to discharge if okay with subspecialty Home meds PT OT labs DVT proph Appreciate nephrology recs Comment Review of Relevant I have reviewed the following items raza (where applicable) has been applied. Labs Laboratory Tests Test 07/03/18 07:35 07/03/18 09:57 07/03/18 11:35 07/03/18 16:36 White Blood Count 7.9 x10^3/uL (4.0-11.0) Red Blood Count 2.13 x10^6/uL (3.50-5.40) Hemoglobin 6.2 g/dL (12.0-15.5) Hematocrit 18.9 % (36.0-47.0) Mean Corpuscular Volume 89 fL (79-100) Mean Corpuscular Hemoglobin 29 pg (25-35) Mean Corpuscular Hemoglobin Concent 33 g/dL (31-37) Red Cell Distribution Width 14.8 % (11.5-14.5) Platelet Count 253 x10^3/uL (140-400) Neutrophils (%) (Auto) 54 % (31-73) Lymphocytes (%) (Auto) 31 % (24-48) Monocytes (%) (Auto) 11 % (0-9) Eosinophils (%) (Auto) 5 % (0-3) Basophils (%) (Auto) 0 % (0-3) Neutrophils # (Auto) 4.2 x10^3uL (1.8-7.7) Lymphocytes # (Auto) 2.4 x10^3/uL (1.0-4.8) Monocytes # (Auto) 0.9 x10^3/uL (0.0-1.1) Eosinophils # (Auto) 0.4 x10^3/uL (0.0-0.7) Basophils # (Auto) 0.0 x10^3/uL (0.0-0.2) Prothrombin Time 15.5 SEC (11.7-14.0) Prothromb Time International Ratio 1.3 (0.8-1.1) Sodium Level 140 mmol/L (136-145) Potassium Level 5.4 mmol/L (3.5-5.1) Chloride Level 106 mmol/L (98-107) Carbon Dioxide Level 25 mmol/L (21-32) Anion Gap 9 (6-14) Blood Urea Nitrogen 72 mg/dL (7-20) Creatinine 3.5 mg/dL (0.6-1.0) Estimated GFR (Cockcroft-Gault) 15.3 BUN/Creatinine Ratio 21 (6-20) Glucose Level 81 mg/dL (70-99) Calcium Level 8.9 mg/dL (8.5-10.1) Total Bilirubin 0.4 mg/dL (0.2-1.0) Aspartate Amino Transf (AST/SGOT) 25 U/L (15-37) Alanine Aminotransferase (ALT/SGPT) 6 U/L (14-59) Alkaline Phosphatase 66 U/L (46-116) Total Protein 6.5 g/dL (6.4-8.2) Albumin 2.3 g/dL (3.4-5.0) Albumin/Globulin Ratio 0.5 (1.0-1.7) Glucose (Fingerstick) 71 mg/dL (70-99) 124 mg/dL (70-99) 371 mg/dL (70-99) Test 07/03/18 21:02 07/04/18 08:25 07/04/18 08:44 07/04/18 11:35 Glucose (Fingerstick) 197 mg/dL (70-99) 133 mg/dL (70-99) 81 mg/dL (70-99) White Blood Count 8.6 x10^3/uL (4.0-11.0) Red Blood Count 2.12 x10^6/uL (3.50-5.40) Hemoglobin 6.1 g/dL (12.0-15.5) Hematocrit 18.8 % (36.0-47.0) Mean Corpuscular Volume 89 fL (79-100) Mean Corpuscular Hemoglobin 29 pg (25-35) Mean Corpuscular Hemoglobin Concent 33 g/dL (31-37) Red Cell Distribution Width 15.1 % (11.5-14.5) Platelet Count 257 x10^3/uL (140-400) Neutrophils (%) (Auto) 54 % (31-73) Lymphocytes (%) (Auto) 31 % (24-48) Monocytes (%) (Auto) 11 % (0-9) Eosinophils (%) (Auto) 4 % (0-3) Basophils (%) (Auto) 0 % (0-3) Neutrophils # (Auto) 4.7 x10^3uL (1.8-7.7) Lymphocytes # (Auto) 2.6 x10^3/uL (1.0-4.8) Monocytes # (Auto) 0.9 x10^3/uL (0.0-1.1) Eosinophils # (Auto) 0.4 x10^3/uL (0.0-0.7) Basophils # (Auto) 0.0 x10^3/uL (0.0-0.2) Sodium Level 143 mmol/L (136-145) Potassium Level 5.1 mmol/L (3.5-5.1) Chloride Level 109 mmol/L (98-107) Carbon Dioxide Level 23 mmol/L (21-32) Anion Gap 11 (6-14) Blood Urea Nitrogen 69 mg/dL (7-20) Creatinine 3.5 mg/dL (0.6-1.0) Estimated GFR (Cockcroft-Gault) 15.3 BUN/Creatinine Ratio 20 (6-20) Glucose Level 100 mg/dL (70-99) Calcium Level 8.7 mg/dL (8.5-10.1) Iron Level 32 ug/dL (50-170) Total Iron Binding Capacity 137 ug/dL (250-450) Iron Saturation 23 % (15-34) Total Bilirubin 0.3 mg/dL (0.2-1.0) Aspartate Amino Transf (AST/SGOT) 16 U/L (15-37) Alanine Aminotransferase (ALT/SGPT) 6 U/L (14-59) Alkaline Phosphatase 59 U/L (46-116) Total Protein 6.1 g/dL (6.4-8.2) Albumin 2.3 g/dL (3.4-5.0) Albumin/Globulin Ratio 0.6 (1.0-1.7) Laboratory Tests Test 07/03/18 16:36 07/03/18 21:02 07/04/18 08:25 07/04/18 08:44 Glucose (Fingerstick) 371 mg/dL (70-99) 197 mg/dL (70-99) 133 mg/dL (70-99) White Blood Count 8.6 x10^3/uL (4.0-11.0) Red Blood Count 2.12 x10^6/uL (3.50-5.40) Hemoglobin 6.1 g/dL (12.0-15.5) Hematocrit 18.8 % (36.0-47.0) Mean Corpuscular Volume 89 fL (79-100) Mean Corpuscular Hemoglobin 29 pg (25-35) Mean Corpuscular Hemoglobin Concent 33 g/dL (31-37) Red Cell Distribution Width 15.1 % (11.5-14.5) Platelet Count 257 x10^3/uL (140-400) Neutrophils (%) (Auto) 54 % (31-73) Lymphocytes (%) (Auto) 31 % (24-48) Monocytes (%) (Auto) 11 % (0-9) Eosinophils (%) (Auto) 4 % (0-3) Basophils (%) (Auto) 0 % (0-3) Neutrophils # (Auto) 4.7 x10^3uL (1.8-7.7) Lymphocytes # (Auto) 2.6 x10^3/uL (1.0-4.8) Monocytes # (Auto) 0.9 x10^3/uL (0.0-1.1) Eosinophils # (Auto) 0.4 x10^3/uL (0.0-0.7) Basophils # (Auto) 0.0 x10^3/uL (0.0-0.2) Sodium Level 143 mmol/L (136-145) Potassium Level 5.1 mmol/L (3.5-5.1) Chloride Level 109 mmol/L (98-107) Carbon Dioxide Level 23 mmol/L (21-32) Anion Gap 11 (6-14) Blood Urea Nitrogen 69 mg/dL (7-20) Creatinine 3.5 mg/dL (0.6-1.0) Estimated GFR (Cockcroft-Gault) 15.3 BUN/Creatinine Ratio 20 (6-20) Glucose Level 100 mg/dL (70-99) Calcium Level 8.7 mg/dL (8.5-10.1) Iron Level 32 ug/dL (50-170) Total Iron Binding Capacity 137 ug/dL (250-450) Iron Saturation 23 % (15-34) Total Bilirubin 0.3 mg/dL (0.2-1.0) Aspartate Amino Transf (AST/SGOT) 16 U/L (15-37) Alanine Aminotransferase (ALT/SGPT) 6 U/L (14-59) Alkaline Phosphatase 59 U/L (46-116) Total Protein 6.1 g/dL (6.4-8.2) Albumin 2.3 g/dL (3.4-5.0) Albumin/Globulin Ratio 0.6 (1.0-1.7) Test 07/04/18 11:35 Glucose (Fingerstick) 81 mg/dL (70-99) Medications Current Medications Ondansetron HCl (Zofran) 4 mg PRN Q8HRS PRN IV NAUSEA/VOMITING; Start 07/03/18 at 08:15; Stop 07/04/18 at 08:14; Status DC Acetaminophen/ Hydrocodone Bitart (Lortab 5/325) 1 tab 1X ONCE PO Last administered on 07/03/18 09:17; Start 07/03/18 at 09:15; Stop 07/03/18 at 09:16 ; Status DC Darbepoetin Denny (Aranesp) 60 mcg [id number] SQ Last administered on 07/03/18 20 :26; Start 07/03/18 at 21:00 Sodium Chloride 1,000 ml @ 75 mls/hr [id number] IV Last administered on 04:27; Start 07/03/18 at 14:00 Aspirin (Children'S Aspirin) 81 mg DAILY PO Last administered on 07/04/18 09: 07; Start 07/04/18 at 09:00 Atorvastatin Calcium (Lipitor) 20 mg HS PO Last administered on 07/03/18 20:25 ; Start 07/03/18 at 21:00 Losartan Potassium (Cozaar) 50 mg DAILY PO Last administered on 07/04/18 09:07 ; Start 07/04/18 at 09:00 Carvedilol (Coreg) 12.5 mg BIDWMEALS PO Last administered on 07/04/18 09:07; Start 07/03/18 at 17:00 Insulin Human Lispro (HumaLOG) 10 units TIDWMEALS SQ Last administered on at 09:10; Start 07/03/18 at 17:00 Insulin Glargine (Lantus) 30 units QHS SQ Last administered on 07/03/18at 21:55 ; Start 07/03/18 at 21:00 Insulin Human Lispro (HumaLOG) 0-7 UNITS TIDWMEALS SQ ; Start 07/03/18 at 17:00 Dextrose (Dextrose 50%-Water Syringe) 12.5 gm PRN Q15MIN PRN IV SEE COMMENTS; Start 07/03/18 at 16:45 Oxycodone/ Acetaminophen (Percocet 5/325) 1 tab PRN Q4HRS PRN PO PAIN Last administered on 07/04/18at 11:00; Start 07/03/18 at 18:00 Calcium Carbonate/ Glycine (Tums) 500 mg PRN AFTMEALHC PRN PO INDIGESTION Last administered on 07/03/18at 20:46; Start 07/03/18 at 20:30 Active Scripts Active Reported Lasix (Furosemide) 40 Mg Tablet 40 Mg PO DAILY Atorvastatin Calcium 20 Mg Tablet 20 Mg PO HS Carvedilol 25 Mg Tablet 12.5 Mg PO BIDWMEALS Fish Oil 1,000 Mg Capsule (Barnhart-3 Fatty Acids/Fish Oil) 1 Each Capsule 1 Each PO DAILY Aspirin 81 Mg Tab.chew 81 Mg PO DAILY Losartan Potassium (Losartan Potassium) 25 Mg Tablet 50 Mg PO DAILY Levemir (Insulin Detemir) 100 Unit/1 Ml Vial 30 Unit SQ HS Novolog (Insulin Aspart) 100 Unit/1 Ml Vial 10 Unit SQ TIDAC Vitals/I & O Vital Sign - Last 24 Hours 07/03/18 07/03/18 07/03/18 07/03/18 15:00 17:07 19:00 20:00 Temp 98.0 98.1 98.0 98.1 Pulse 77 77 72 Resp 18 18 B/P (MAP) 125/63 (83) 125/63 125/59 (81) Pulse Ox 98 97 O2 Delivery Room Air Room Air Room Air 07/03/18 07/03/18 07/03/18 07/04/18 20:26 21:26 23:00 03:00 Temp 99.1 98.3 99.1 98.3 Pulse 81 77 Resp 20 20 18 18 B/P (MAP) 100/38 (58) 80/30 (47) Pulse Ox 97 98 96 98 O2 Delivery Room Air Room Air Room Air Room Air 3/2607/04/18 07/04/18 07/04/18 04:30 07:00 07:25 09:07 Temp 98.2 98.2 Pulse 71 74 74 Resp 18 B/P (MAP) 103/46 (65) 117/52 (73) 117/52 Pulse Ox 96 O2 Delivery Room Air Room Air 07/04/18 07/04/18 09:07 11:00 Pulse 74 B/P (MAP) 117/52 O2 Delivery Room Air Intake and Output 07/03/18 07/03/18 07/04/18 15:00 23:00 07:00 Intake Total 200 ml 100 ml Output Total 350 ml Balance -150 ml 100 ml SAHARA MEJIA III DO Jul 04, 2018 11:54
--- NOTE | 2018-07-04 12:34 | PDOC ---
Renal-Progress Notes Subjective Notes Notes NO NEW COMPLAINTS History of Present Illness Hx of present illness STABLE Vitals Vitals Vital Signs Date Time Temp Pulse Resp B/P (MAP) Pulse Ox O2 Delivery O2 Flow Rate FiO2 07/04/18 12:01 Room Air 07/04/18 11:00 98.0 78 18 132/54 (80) 97 98.0 Weight Weight [ ] I.O. Intake and Output Intake and Output 07/04/18 06:59 Intake Total 300 ml Output Total 350 ml Balance -50 ml Intake Oral 300 ml Output Urine Total 350 ml # Voids 2 Labs Labs Laboratory Tests Test 07/03/18 16:36 07/03/18 21:02 07/04/18 08:25 07/04/18 08:44 Glucose (Fingerstick) 371 mg/dL (70-99) 197 mg/dL (70-99) 133 mg/dL (70-99) White Blood Count 8.6 x10^3/uL (4.0-11.0) Red Blood Count 2.12 x10^6/uL (3.50-5.40) Hemoglobin 6.1 g/dL (12.0-15.5) Hematocrit 18.8 % (36.0-47.0) Mean Corpuscular Volume 89 fL (79-100) Mean Corpuscular Hemoglobin 29 pg (25-35) Mean Corpuscular Hemoglobin Concent 33 g/dL (31-37) Red Cell Distribution Width 15.1 % (11.5-14.5) Platelet Count 257 x10^3/uL (140-400) Neutrophils (%) (Auto) 54 % (31-73) Lymphocytes (%) (Auto) 31 % (24-48) Monocytes (%) (Auto) 11 % (0-9) Eosinophils (%) (Auto) 4 % (0-3) Basophils (%) (Auto) 0 % (0-3) Neutrophils # (Auto) 4.7 x10^3uL (1.8-7.7) Lymphocytes # (Auto) 2.6 x10^3/uL (1.0-4.8) Monocytes # (Auto) 0.9 x10^3/uL (0.0-1.1) Eosinophils # (Auto) 0.4 x10^3/uL (0.0-0.7) Basophils # (Auto) 0.0 x10^3/uL (0.0-0.2) Sodium Level 143 mmol/L (136-145) Potassium Level 5.1 mmol/L (3.5-5.1) Chloride Level 109 mmol/L (98-107) Carbon Dioxide Level 23 mmol/L (21-32) Anion Gap 11 (6-14) Blood Urea Nitrogen 69 mg/dL (7-20) Creatinine 3.5 mg/dL (0.6-1.0) Estimated GFR (Cockcroft-Gault) 15.3 BUN/Creatinine Ratio 20 (6-20) Glucose Level 100 mg/dL (70-99) Calcium Level 8.7 mg/dL (8.5-10.1) Iron Level 32 ug/dL (50-170) Total Iron Binding Capacity 137 ug/dL (250-450) Iron Saturation 23 % (15-34) Total Bilirubin 0.3 mg/dL (0.2-1.0) Aspartate Amino Transf (AST/SGOT) 16 U/L (15-37) Alanine Aminotransferase (ALT/SGPT) 6 U/L (14-59) Alkaline Phosphatase 59 U/L (46-116) Total Protein 6.1 g/dL (6.4-8.2) Albumin 2.3 g/dL (3.4-5.0) Albumin/Globulin Ratio 0.6 (1.0-1.7) Test 07/04/18 11:35 Glucose (Fingerstick) 81 mg/dL (70-99) Review of Systems Constitutional: yes: weakness, alert, oriented Ears/Nose/Throat: Yes: no symptom reported Eyes: Yes: no symptom reported Pulmonary: Yes no symptom reported Cardiovascular: Yes no symptom reported Gastrointestional: Yes: no symptom reported Genitourinary: Yes: no symptom reported Musculoskeletal: Yes: no symptom reported Skin: Yes no symptom reported Psychiatric/Neurological: Yes: no symptom reported Endocrine: Yes: no symptom reported Hematologic/Lymphatic: Yes: no symptom reported Physical Exam General Appearance: no apparent distress Respiratory: bilateral CTA Heart: S1S2, RRR Abdomen: soft, bowel sounds present Genitourinary: bladder flat Extremities: pulses present Neurology: alert, oriented Musculoskeletal: Osteoarthritis Assessment Assessment IMP SEVERE ANEMIA OF ADVANCED CKD DM II HTN STAGE 4 CKD-CR NO DIFFERENT THAN EARLIER THIS YEAR-STABLE AT 3.5 DECONDITIONING DUE TO ANEMIA S/P LEFT RECENT HIP REPLACEMENT PLAN RECENTLY RECEIVED IV IRON STARTED ARANESP NO NEED TO START DIALYSIS AT THIS TIME LEFT ARM AVF IS POORLY DEVELOPED AND NOT READY FOR ACCESS UNFORTUNATELY SHE WILL NOT ACCEPT PRBC DUE TO SCIENTOLOGIST REASONS HAVE ASKED HER TO F/U WITH [facility] TO SCHEDULE FREEMAN TO PP SOON IZZY MCLEOD MD Jul 04, 2018 12:34
--- NOTE | 2018-07-04 18:45 | DS ---
DATE OF DISCHARGE: 07/04/2018 ADMISSION DIAGNOSES: Anemia and chronic renal failure. DISCHARGE DIAGNOSES: Resolving chronic anemia and chronic renal failure (the patient is close to needing dialysis. She does have a graft in her left arm, but we have not had to use it yet). CONSULTS: Nephrology. PROCEDURES: None. HOSPITAL COURSE: The patient is a pleasant middle-aged female who had had a recent bowel surgery. She is near end-stage renal disease with a graft in her arm already waiting for dialysis, but we really have not started it yet. She was at the rehab unit and was noted to be weak and pale. They sent her over and her hemoglobin was 6 and her creatinine was up to 3.7. We admitted her. She refused transfusions for voodoo reasons. Over the past couple of days, she has returned to baseline. I saw and examined her this morning. Her heart tones were normal. Her lungs were clear. We plan to discharge back to senior care for continued rehabilitation. DISPOSITION: Skilled. ACTIVITY: As tolerated. DIET: Low sodium. MEDICATIONS: Please see the MRAD. TOTAL TIME: 33 minutes. SAHARA MEJIA DO DR: VIKKI/rubén JOB#: [id number] / [id number]
[2018-07-04] MEDS: ATORVASTATIN CALCIUM 20 MG TABLET PO SCH (20:20)
[2018-07-04] MEDS: INSULIN GLARGINE 300 UNITS/3 ML INSULN.PEN. SQ SCH (21:00)
--- NOTE | 2018-07-04 21:50 | NUR ---
Dr. Burger contracted regarding blood sugar 104. Pt stated having no appetite. Orders received. Will continue to monitor.
[2018-07-04] MEDS ORDERED: INSULIN GLARGINE 300 UNITS/3 ML INSULN.PEN. SQ ONE (22:00)
[2018-07-05 03:07] VITALS: BP 97/40
[2018-07-05 05:28] LABS: ALBUMIN 2.1 g/dL (3.4-5.0); ALBUMIN/GLOBULIN RATIO 0.6 (1.0-1.7); CALCIUM 8.7 mg/dL (8.5-10.1); CREATININE 3.6 mg/dL (0.6-1.0); GFR 14.8; POTASSIUM 5.3 mmol/L (3.5-5.1); TOTAL BILIRUBIN 0.3 mg/dL (0.2-1.0); TOTAL PROTEIN 5.7 g/dL (6.4-8.2)
[2018-07-05] MEDS: IV NORMAL SALINE 1000ML BAG 1,000 ML IV SCH (05:28)
[2018-07-05 06:12] LABS: BASO % 0 % (0-3); EOS # 0.5 x10^3/uL (0.0-0.7); EOS % 5 % (0-3); LYMPH # 3.1 x10^3/uL (1.0-4.8); LYMPH % 36 % (24-48); MEAN CORPUSCULAR HEMOGLOBIN 29 pg (25-35); MEAN CORPUSCULAR HGB CONC 33 g/dL (31-37); MEAN CORPUSCULAR VOLUME 89 fL (79-100); MONO # 0.8 x10^3/uL (0.0-1.1); MONO % 9 % (0-9); NEUT # 4.1 x10^3uL (1.8-7.7); NEUT % 49 % (31-73); PLATELET COUNT 243 x10^3/uL (140-400); RED BLOOD COUNT 1.96 x10^6/uL (3.50-5.40); RED CELL DISTRIBUTION WIDTH 15.1 % (11.5-14.5); WHITE BLOOD COUNT 8.5 x10^3/uL (4.0-11.0)
[2018-07-05 06:37] LABS: HEMATOCRIT 17.4 % (36.0-47.0); HEMOGLOBIN 5.7 g/dL (12.0-15.5)
[2018-07-05 07:00] VITALS: BP 99/44
--- NOTE | 2018-07-05 07:00 | NUR ---
Critical lab value received. Hgb- 5.7, Hct- 17.4. Dr. Burger notified. No new order.
[2018-07-05] MEDS: CARVEDILOL 12.5 MG TABLET. PO SCH ×2 (08:00→17:00)
[2018-07-05] MEDS: INSULIN LISPRO 300 UNITS/3 ML INSULN.PEN. SQ SCH ×6 (08:00→17:28)
[2018-07-05] MEDS: ASPIRIN CHEWABLE 81 MG TABLET. PO SCH (08:55)
[2018-07-05] MEDS: LOSARTAN POTASSIUM 50 MG TABLET. PO SCH (08:55)
[2018-07-05] MEDS: oxyCODONE/APAP 5/325 1 TAB TABLET PO PRN ×2 (08:56→22:05)
--- NOTE | 2018-07-05 09:28 | NUR ---
BIMAL following. Discussed with RN, Adrianne from [facility] contacted SW to advise pt will not be able to return to [facility] due to hgb dropping. Adrianne advised if pt comes back to , she will be sent back to [facility] due to the hgb level dropping further and pt not being able to have a blood transfusion due to advent reasons. The anemia injections are not able to be given at [facility] either due to the very high cost of the medication. Per Adrianne, this medication is normally given at dialysis, however pt is not set up for or needing dialysis. SW will continue to follow for discharge planning. RN notified of pt not being able to return to [facility].
[2018-07-05 11:00] VITALS: BP 144/45
--- NOTE | 2018-07-05 12:46 | NUR ---
FSBS 200, meal dose is 10 units, only 5 given since Pt only had nutritional drink and did not eat any of her lunch.
--- NOTE | 2018-07-05 13:46 | NUR ---
SW following. Discussed with RN, pt likely discharging home tomorrow (07/06/18) with home health. Pt would like the same company her had when he left [facility] in 2016, and if SW is unable to find out the company, pt would like [facility] for PT/OT/RN. Pt will follow outpatient for a Procrit 10,000 shot weekly. MONROE Steven called the order to outpatient to run benefits through pt's insurance. Pt to call outpatient to determine if insurance has approved and to set up a time on Tuesday to come in. SW will continue to follow.
--- NOTE | 2018-07-05 14:29 | PDOC ---
PROGRESS NOTES Chief Complaint Chief Complaint ESRD Anemia with Hgb <7.0 (refusing blood products- anabaptism reasons)\ Hyperkalemia Recent hip arthroplasty DM2 Eventual HD, not currently requiring HLD History of Present Illness History of Present Illness Pt was seen and examined this morning She was pleasant upon our arrival Hgb of 5.7 this AM, discussed this with patient and she continues to not accept blood products for anabaptism reasons Explained that transfusions are the treatment of choice in this situation She noted that she understands, and will continue to refuse blood products for now Vitals Vitals Vital Signs Date Time Temp Pulse Resp B/P (MAP) Pulse Ox O2 Delivery O2 Flow Rate FiO2 07/05/18 11:00 97.6 70 18 144/45 (78) 91 Room Air 97.6 Physical Exam General: Alert, Oriented X3, Cooperative, No acute distress Heart: Regular rate, No murmurs Lungs: Clear Abdomen: Normal bowel sounds, Soft Extremities: No clubbing, No edema Skin: No breakdown Labs LABS Laboratory Tests Test 07/04/18 16:12 07/04/18 17:13 07/04/18 21:11 07/04/18 23:25 Glucose (Fingerstick) 75 mg/dL (70-99) 116 mg/dL (70-99) 104 mg/dL (70-99) 111 mg/dL (70-99) Test 07/05/18 03:20 07/05/18 07:22 07/05/18 11:29 White Blood Count 8.5 x10^3/uL (4.0-11.0) Red Blood Count 1.96 x10^6/uL (3.50-5.40) Hemoglobin 5.7 g/dL (12.0-15.5) Hematocrit 17.4 % (36.0-47.0) Mean Corpuscular Volume 89 fL (79-100) Mean Corpuscular Hemoglobin 29 pg (25-35) Mean Corpuscular Hemoglobin Concent 33 g/dL (31-37) Red Cell Distribution Width 15.1 % (11.5-14.5) Platelet Count 243 x10^3/uL (140-400) Neutrophils (%) (Auto) 49 % (31-73) Lymphocytes (%) (Auto) 36 % (24-48) Monocytes (%) (Auto) 9 % (0-9) Eosinophils (%) (Auto) 5 % (0-3) Basophils (%) (Auto) 0 % (0-3) Neutrophils # (Auto) 4.1 x10^3uL (1.8-7.7) Lymphocytes # (Auto) 3.1 x10^3/uL (1.0-4.8) Monocytes # (Auto) 0.8 x10^3/uL (0.0-1.1) Eosinophils # (Auto) 0.5 x10^3/uL (0.0-0.7) Basophils # (Auto) 0.0 x10^3/uL (0.0-0.2) Sodium Level 143 mmol/L (136-145) Potassium Level 5.3 mmol/L (3.5-5.1) Chloride Level 110 mmol/L (98-107) Carbon Dioxide Level 22 mmol/L (21-32) Anion Gap 11 (6-14) Blood Urea Nitrogen 68 mg/dL (7-20) Creatinine 3.6 mg/dL (0.6-1.0) Estimated GFR (Cockcroft-Gault) 14.8 BUN/Creatinine Ratio 19 (6-20) Glucose Level 97 mg/dL (70-99) Calcium Level 8.7 mg/dL (8.5-10.1) Total Bilirubin 0.3 mg/dL (0.2-1.0) Aspartate Amino Transf (AST/SGOT) 29 U/L (15-37) Alanine Aminotransferase (ALT/SGPT) 7 U/L (14-59) Alkaline Phosphatase 53 U/L (46-116) Total Protein 5.7 g/dL (6.4-8.2) Albumin 2.1 g/dL (3.4-5.0) Albumin/Globulin Ratio 0.6 (1.0-1.7) Glucose (Fingerstick) 103 mg/dL (70-99) 200 mg/dL (70-99) Review of Systems Review of Systems Pt denies CP, [place], SOB, n/v/d, weakness Assessment and Plan Assessmemt and Plan Problems Medical Problems: (1) Acute anemia Status: Acute Assessment: ESRD Anemia with Hgb <6.0 (refusing blood products- anabaptism reasons) Hyperkalemia Recent hip arthroplasty DM2 Eventual HD, not currently requiring HLD Plan: Hgb 5.7 today, continues to drop and rehab units will not accept her (attempted to D/C yesterday) Continues to refuse blood products per anabaptism reasons Will decrease blood draws to only an H&H, hopefully this will help alleviate dropping Hgb Iron therapy, erythropoietin therapy Negative Hepatitis screen- required for eventual initiation of hemodialysis Will hold off on HD per nephrology recs (has AVF in L upper extremity) Home meds PT/OT DVT proph Appreciate nephrology recs Eventually plan to discharge home with HH Will continue to monitor 2/2 very low Hgb Comment Review of Relevant I have reviewed the following items raza (where applicable) has been applied. Labs Laboratory Tests Test 07/03/18 16:36 07/03/18 21:02 07/04/18 07:41 07/04/18 08:25 Glucose (Fingerstick) 371 mg/dL (70-99) 197 mg/dL (70-99) 56 mg/dL (70-99) White Blood Count 8.6 x10^3/uL (4.0-11.0) Red Blood Count 2.12 x10^6/uL (3.50-5.40) Hemoglobin 6.1 g/dL (12.0-15.5) Hematocrit 18.8 % (36.0-47.0) Mean Corpuscular Volume 89 fL (79-100) Mean Corpuscular Hemoglobin 29 pg (25-35) Mean Corpuscular Hemoglobin Concent 33 g/dL (31-37) Red Cell Distribution Width 15.1 % (11.5-14.5) Platelet Count 257 x10^3/uL (140-400) Neutrophils (%) (Auto) 54 % (31-73) Lymphocytes (%) (Auto) 31 % (24-48) Monocytes (%) (Auto) 11 % (0-9) Eosinophils (%) (Auto) 4 % (0-3) Basophils (%) (Auto) 0 % (0-3) Neutrophils # (Auto) 4.7 x10^3uL (1.8-7.7) Lymphocytes # (Auto) 2.6 x10^3/uL (1.0-4.8) Monocytes # (Auto) 0.9 x10^3/uL (0.0-1.1) Eosinophils # (Auto) 0.4 x10^3/uL (0.0-0.7) Basophils # (Auto) 0.0 x10^3/uL (0.0-0.2) Sodium Level 143 mmol/L (136-145) Potassium Level 5.1 mmol/L (3.5-5.1) Chloride Level 109 mmol/L (98-107) Carbon Dioxide Level 23 mmol/L (21-32) Anion Gap 11 (6-14) Blood Urea Nitrogen 69 mg/dL (7-20) Creatinine 3.5 mg/dL (0.6-1.0) Estimated GFR (Cockcroft-Gault) 15.3 BUN/Creatinine Ratio 20 (6-20) Glucose Level 100 mg/dL (70-99) Calcium Level 8.7 mg/dL (8.5-10.1) Iron Level 32 ug/dL (50-170) Total Iron Binding Capacity 137 ug/dL (250-450) Iron Saturation 23 % (15-34) Total Bilirubin 0.3 mg/dL (0.2-1.0) Aspartate Amino Transf (AST/SGOT) 16 U/L (15-37) Alanine Aminotransferase (ALT/SGPT) 6 U/L (14-59) Alkaline Phosphatase 59 U/L (46-116) Total Protein 6.1 g/dL (6.4-8.2) Albumin 2.3 g/dL (3.4-5.0) Albumin/Globulin Ratio 0.6 (1.0-1.7) Hepatitis B Surface Antigen Nonreactive (Nonreactive) Hepatitis B Surface Antibody Nonreactive Hepatitis B Core IgM Antibody Nonreactive (Nonreactive) Test 07/04/18 08:44 07/04/18 11:35 07/04/18 16:12 07/04/18 17:13 Glucose (Fingerstick) 133 mg/dL (70-99) 81 mg/dL (70-99) 75 mg/dL (70-99) 116 mg/dL (70-99) Test 07/04/18 21:11 07/04/18 23:25 07/05/18 03:20 07/05/18 07:22 Glucose (Fingerstick) 104 mg/dL (70-99) 111 mg/dL (70-99) 103 mg/dL (70-99) White Blood Count 8.5 x10^3/uL (4.0-11.0) Red Blood Count 1.96 x10^6/uL (3.50-5.40) Hemoglobin 5.7 g/dL (12.0-15.5) Hematocrit 17.4 % (36.0-47.0) Mean Corpuscular Volume 89 fL (79-100) Mean Corpuscular Hemoglobin 29 pg (25-35) Mean Corpuscular Hemoglobin Concent 33 g/dL (31-37) Red Cell Distribution Width 15.1 % (11.5-14.5) Platelet Count 243 x10^3/uL (140-400) Neutrophils (%) (Auto) 49 % (31-73) Lymphocytes (%) (Auto) 36 % (24-48) Monocytes (%) (Auto) 9 % (0-9) Eosinophils (%) (Auto) 5 % (0-3) Basophils (%) (Auto) 0 % (0-3) Neutrophils # (Auto) 4.1 x10^3uL (1.8-7.7) Lymphocytes # (Auto) 3.1 x10^3/uL (1.0-4.8) Monocytes # (Auto) 0.8 x10^3/uL (0.0-1.1) Eosinophils # (Auto) 0.5 x10^3/uL (0.0-0.7) Basophils # (Auto) 0.0 x10^3/uL (0.0-0.2) Sodium Level 143 mmol/L (136-145) Potassium Level 5.3 mmol/L (3.5-5.1) Chloride Level 110 mmol/L (98-107) Carbon Dioxide Level 22 mmol/L (21-32) Anion Gap 11 (6-14) Blood Urea Nitrogen 68 mg/dL (7-20) Creatinine 3.6 mg/dL (0.6-1.0) Estimated GFR (Cockcroft-Gault) 14.8 BUN/Creatinine Ratio 19 (6-20) Glucose Level 97 mg/dL (70-99) Calcium Level 8.7 mg/dL (8.5-10.1) Total Bilirubin 0.3 mg/dL (0.2-1.0) Aspartate Amino Transf (AST/SGOT) 29 U/L (15-37) Alanine Aminotransferase (ALT/SGPT) 7 U/L (14-59) Alkaline Phosphatase 53 U/L (46-116) Total Protein 5.7 g/dL (6.4-8.2) Albumin 2.1 g/dL (3.4-5.0) Albumin/Globulin Ratio 0.6 (1.0-1.7) Test 07/05/18 11:29 Glucose (Fingerstick) 200 mg/dL (70-99) Laboratory Tests Test 07/04/18 16:12 07/04/18 17:13 07/04/18 21:11 07/04/18 23:25 Glucose (Fingerstick) 75 mg/dL (70-99) 116 mg/dL (70-99) 104 mg/dL (70-99) 111 mg/dL (70-99) Test 07/05/18 03:20 07/05/18 07:22 07/05/18 11:29 White Blood Count 8.5 x10^3/uL (4.0-11.0) Red Blood Count 1.96 x10^6/uL (3.50-5.40) Hemoglobin 5.7 g/dL (12.0-15.5) Hematocrit 17.4 % (36.0-47.0) Mean Corpuscular Volume 89 fL (79-100) Mean Corpuscular Hemoglobin 29 pg (25-35) Mean Corpuscular Hemoglobin Concent 33 g/dL (31-37) Red Cell Distribution Width 15.1 % (11.5-14.5) Platelet Count 243 x10^3/uL (140-400) Neutrophils (%) (Auto) 49 % (31-73) Lymphocytes (%) (Auto) 36 % (24-48) Monocytes (%) (Auto) 9 % (0-9) Eosinophils (%) (Auto) 5 % (0-3) Basophils (%) (Auto) 0 % (0-3) Neutrophils # (Auto) 4.1 x10^3uL (1.8-7.7) Lymphocytes # (Auto) 3.1 x10^3/uL (1.0-4.8) Monocytes # (Auto) 0.8 x10^3/uL (0.0-1.1) Eosinophils # (Auto) 0.5 x10^3/uL (0.0-0.7) Basophils # (Auto) 0.0 x10^3/uL (0.0-0.2) Sodium Level 143 mmol/L (136-145) Potassium Level 5.3 mmol/L (3.5-5.1) Chloride Level 110 mmol/L (98-107) Carbon Dioxide Level 22 mmol/L (21-32) Anion Gap 11 (6-14) Blood Urea Nitrogen 68 mg/dL (7-20) Creatinine 3.6 mg/dL (0.6-1.0) Estimated GFR (Cockcroft-Gault) 14.8 BUN/Creatinine Ratio 19 (6-20) Glucose Level 97 mg/dL (70-99) Calcium Level 8.7 mg/dL (8.5-10.1) Total Bilirubin 0.3 mg/dL (0.2-1.0) Aspartate Amino Transf (AST/SGOT) 29 U/L (15-37) Alanine Aminotransferase (ALT/SGPT) 7 U/L (14-59) Alkaline Phosphatase 53 U/L (46-116) Total Protein 5.7 g/dL (6.4-8.2) Albumin 2.1 g/dL (3.4-5.0) Albumin/Globulin Ratio 0.6 (1.0-1.7) Glucose (Fingerstick) 103 mg/dL (70-99) 200 mg/dL (70-99) Medications Current Medications Ondansetron HCl (Zofran) 4 mg PRN Q8HRS PRN IV NAUSEA/VOMITING; Start 07/03/18 at 08:15; Stop 07/04/18 at 08:14; Status DC Acetaminophen/ Hydrocodone Bitart (Lortab 5/325) 1 tab 1X ONCE PO Last administered on 07/03/18at 09:17; Start 07/03/18 at 09:15; Stop 07/03/18 at 09:16 ; Status DC Darbepoetin Denny (Aranesp) 60 mcg WEEKLYHS SQ Last administered on 07/03/18at 20 :26; Start 07/03/18 at 21:00 Sodium Chloride 1,000 ml @ 75 mls/hr [id number] IV Last administered on at 05:28; Start 07/03/18 at 14:00 Aspirin (Children'S Aspirin) 81 mg DAILY PO Last administered on 07/05/18 08: 55; Start 07/04/18 at 09:00 Atorvastatin Calcium (Lipitor) 20 mg HS PO Last administered on 07/04/18 20:20 ; Start 07/03/18 at 21:00 Losartan Potassium (Cozaar) 50 mg DAILY PO Last administered on 07/04/18 09:07 ; Start 07/04/18 at 09:00 Carvedilol (Coreg) 12.5 mg BIDWMEALS PO Last administered on 07/04/18 17:22; Start 07/03/18 at 17:00 Insulin Human Lispro (HumaLOG) 10 units TIDWMEALS SQ Last administered on 12:46; Start 07/03/18 at 17:00 Insulin Glargine (Lantus) 30 units QHS SQ Last administered on 07/03/18 21:55 ; Start 07/03/18 at 21:00 Insulin Human Lispro (HumaLOG) 0-7 UNITS TIDWMEALS SQ ; Start 07/03/18 at 17:00 Dextrose (Dextrose 50%-Water Syringe) 12.5 gm PRN Q15MIN PRN IV SEE COMMENTS; Start 07/03/18 at 16:45 Oxycodone/ Acetaminophen (Percocet 5/325) 1 tab PRN Q4HRS PRN PO PAIN Last administered on 07/05/18 08:56; Start 07/03/18 at 18:00 Calcium Carbonate/ Glycine (Tums) 500 mg PRN AFTMEALHC PRN PO INDIGESTION Last administered on 07/03/18 20:46; Start 07/03/18 at 20:30 Insulin Glargine (Lantus) 15 units 1X ONCE SQ Last administered on 07/04/18 22:07; Start 07/04/18 at 22:00; Stop 07/04/18 at 22:01; Status DC Active Scripts Active Reported Lasix (Furosemide) 40 Mg Tablet 40 Mg PO DAILY Atorvastatin Calcium 20 Mg Tablet 20 Mg PO HS Carvedilol 25 Mg Tablet 12.5 Mg PO BIDWMEALS Fish Oil 1,000 Mg Capsule (Alpine-3 Fatty Acids/Fish Oil) 1 Each Capsule 1 Each PO DAILY Aspirin 81 Mg Tab.chew 81 Mg PO DAILY Losartan Potassium (Losartan Potassium) 25 Mg Tablet 50 Mg PO DAILY Levemir (Insulin Detemir) 100 Unit/1 Ml Vial 30 Unit SQ HS Novolog (Insulin Aspart) 100 Unit/1 Ml Vial 10 Unit SQ TIDAC Vitals/I & O Vital Sign - Last 24 Hours 07/04/18 07/04/18 07/04/18 07/04/18 15:00 17:22 19:15 19:40 Temp 97.9 98.2 97.9 98.2 Pulse 69 76 73 Resp 18 18 B/P (MAP) 101/49 (66) 132/60 115/62 (79) Pulse Ox 96 97 O2 Delivery Room Air Room Air Room Air 07/04/18 07/04/18 07/05/18 07/05/18 19:42 23:31 03:07 07:00 Temp 98.3 98.5 97.5 98.3 98.5 97.5 Pulse 72 70 72 Resp 18 18 18 B/P (MAP) 114/64 (81) 97/40 (59) 99/44 (62) Pulse Ox 97 96 98 O2 Delivery Room Air Room Air Room Air Room Air 07/05/18 07/05/18 07/05/18 07/05/18 07:50 08:00 08:55 08:56 Pulse 72 72 B/P (MAP) 99/44 99/44 O2 Delivery Room Air Room Air 07/05/18 07/05/18 10:05 11:00 Temp 97.6 97.6 Pulse 70 Resp 18 B/P (MAP) 144/45 (78) Pulse Ox 91 O2 Delivery Room Air Room Air Intake and Output 07/04/18 07/04/18 07/05/18 15:00 23:00 07:00 Intake Total 120 ml 1360 ml Output Total 150 ml Balance -30 ml 1360 ml SAHARA MEJIA III DO Jul 05, 2018 14:29
--- NOTE | 2018-07-05 14:38 | PDOC ---
Renal-Progress Notes Subjective Notes Notes NO NEW COMPLAINTS History of Present Illness Hx of present illness STABLE Vitals Vitals Vital Signs Date Time Temp Pulse Resp B/P (MAP) Pulse Ox O2 Delivery O2 Flow Rate FiO2 07/05/18 11:00 97.6 70 18 144/45 (78) 91 Room Air 97.6 Weight Weight [ ] I.O. Intake and Output Intake and Output 07/05/18 07:00 Intake Total 1480 ml Output Total 150 ml Balance 1330 ml Intake Oral 480 ml IV Total 1000 ml Output Urine Total 150 ml # Voids 3 Labs Labs Laboratory Tests Test 07/04/18 16:12 07/04/18 17:13 07/04/18 21:11 07/04/18 23:25 Glucose (Fingerstick) 75 mg/dL (70-99) 116 mg/dL (70-99) 104 mg/dL (70-99) 111 mg/dL (70-99) Test 07/05/18 03:20 07/05/18 07:22 07/05/18 11:29 White Blood Count 8.5 x10^3/uL (4.0-11.0) Red Blood Count 1.96 x10^6/uL (3.50-5.40) Hemoglobin 5.7 g/dL (12.0-15.5) Hematocrit 17.4 % (36.0-47.0) Mean Corpuscular Volume 89 fL (79-100) Mean Corpuscular Hemoglobin 29 pg (25-35) Mean Corpuscular Hemoglobin Concent 33 g/dL (31-37) Red Cell Distribution Width 15.1 % (11.5-14.5) Platelet Count 243 x10^3/uL (140-400) Neutrophils (%) (Auto) 49 % (31-73) Lymphocytes (%) (Auto) 36 % (24-48) Monocytes (%) (Auto) 9 % (0-9) Eosinophils (%) (Auto) 5 % (0-3) Basophils (%) (Auto) 0 % (0-3) Neutrophils # (Auto) 4.1 x10^3uL (1.8-7.7) Lymphocytes # (Auto) 3.1 x10^3/uL (1.0-4.8) Monocytes # (Auto) 0.8 x10^3/uL (0.0-1.1) Eosinophils # (Auto) 0.5 x10^3/uL (0.0-0.7) Basophils # (Auto) 0.0 x10^3/uL (0.0-0.2) Sodium Level 143 mmol/L (136-145) Potassium Level 5.3 mmol/L (3.5-5.1) Chloride Level 110 mmol/L (98-107) Carbon Dioxide Level 22 mmol/L (21-32) Anion Gap 11 (6-14) Blood Urea Nitrogen 68 mg/dL (7-20) Creatinine 3.6 mg/dL (0.6-1.0) Estimated GFR (Cockcroft-Gault) 14.8 BUN/Creatinine Ratio 19 (6-20) Glucose Level 97 mg/dL (70-99) Calcium Level 8.7 mg/dL (8.5-10.1) Total Bilirubin 0.3 mg/dL (0.2-1.0) Aspartate Amino Transf (AST/SGOT) 29 U/L (15-37) Alanine Aminotransferase (ALT/SGPT) 7 U/L (14-59) Alkaline Phosphatase 53 U/L (46-116) Total Protein 5.7 g/dL (6.4-8.2) Albumin 2.1 g/dL (3.4-5.0) Albumin/Globulin Ratio 0.6 (1.0-1.7) Glucose (Fingerstick) 103 mg/dL (70-99) 200 mg/dL (70-99) Review of Systems Constitutional: yes: weakness, alert, oriented Ears/Nose/Throat: Yes: no symptom reported Eyes: Yes: no symptom reported Pulmonary: Yes no symptom reported Cardiovascular: Yes no symptom reported Gastrointestional: Yes: no symptom reported Genitourinary: Yes: no symptom reported Musculoskeletal: Yes: no symptom reported Skin: Yes no symptom reported Psychiatric/Neurological: Yes: no symptom reported Endocrine: Yes: no symptom reported Hematologic/Lymphatic: Yes: no symptom reported Physical Exam General Appearance: no apparent distress Respiratory: bilateral CTA Heart: S1S2, RRR Abdomen: soft, bowel sounds present Genitourinary: bladder flat Extremities: pulses present Neurology: alert, oriented Musculoskeletal: Osteoarthritis Assessment Assessment IMP SEVERE ANEMIA OF ADVANCED CKD-WORSE WITH HGB OF 5.7 DM II HTN STAGE 4 CKD-CR NO DIFFERENT THAN EARLIER THIS YEAR-STABLE AT 3.6 DECONDITIONING DUE TO ANEMIA S/P LEFT RECENT HIP REPLACEMENT PLAN RECENTLY RECEIVED IV IRON STARTED ARANESP PP WONT TAKE HER DUE TO LOW HGB BUT ALSO DONT WANT TO GIVE ARANESP DUE TO EXPENSE EXPLAINED TO HER THE DANGERS OF SUCH LOW HGB PT MAY NEED TO GO HOME AND HAVE PROCRIT SET UP OP HERE DONT EXPECT IMPROVEMENT IN HGB FOR 1-2 MONTHS HAVE ASKED PT TO START OTC IRON NO NEED TO START DIALYSIS AT THIS TIME LEFT ARM AVF IS POORLY DEVELOPED AND NOT READY FOR ACCESS UNFORTUNATELY SHE WILL NOT ACCEPT PRBC DUE TO CHURCH REASONS HAVE ASKED HER TO F/U WITH [facility] ONCE DISCHARGED IZZY MCLEOD MD Jul 05, 2018 14:38
[2018-07-05 15:00] VITALS: BP 110/35
[2018-07-05 19:00] VITALS: BP 122/37
[2018-07-05] MEDS: ATORVASTATIN CALCIUM 20 MG TABLET PO SCH (22:00)
[2018-07-05] MEDS: INSULIN GLARGINE 300 UNITS/3 ML INSULN.PEN. SQ SCH (22:04)
[2018-07-05 23:00] VITALS: BP 128/46
[2018-07-06 03:00] VITALS: BP 104/40
[2018-07-06 03:10] LABS: RED BLOOD COUNT 1.94 x10^6/uL (3.50-5.40); RED CELL DISTRIBUTION WIDTH 14.7 % (11.5-14.5); WHITE BLOOD COUNT 8.7 x10^3/uL (4.0-11.0)
[2018-07-06 03:28] LABS: CREATININE 3.4 mg/dL (0.6-1.0); GFR 15.8; POTASSIUM 5.6 mmol/L (3.5-5.1)
[2018-07-06 04:16] LABS: HEMATOCRIT 17.2 % (36.0-47.0); HEMOGLOBIN 5.7 g/dL (12.0-15.5)
--- NOTE | 2018-07-06 04:55 | NUR ---
Patient reports 'I feel hot..can't catch my breath.." This casualty underwriter turns thermostat down, applies oxygen @ 1 liter, turns patient to opposite side, reports she feels better, This casualty underwriter explains to patient that the low hemoglobin may cause her shortness of breath. This casualty underwriter asks patient about her los..that this casualty underwriter heard in the past that if elders of their los approve of a blood transfusion, then it could possibly be administered, patient states that her elders are to visit her today.
[2018-07-06 07:00] VITALS: BP 129/81
[2018-07-06] MEDS: CARVEDILOL 12.5 MG TABLET. PO SCH ×2 (08:00→17:00)
[2018-07-06] MEDS: INSULIN LISPRO 300 UNITS/3 ML INSULN.PEN. SQ SCH ×6 (08:00→17:14)
[2018-07-06] MEDS: LOSARTAN POTASSIUM 50 MG TABLET. PO SCH (09:00)
[2018-07-06] MEDS: oxyCODONE/APAP 5/325 1 TAB TABLET PO PRN ×2 (10:26→18:02)
--- NOTE | 2018-07-06 10:26 | PDOC ---
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[employer] Witness Hyperkalemia Recent hip arthroplasty DM2 HLD History of Present Illness History of Present Illness very pleasant but pale, Hgb still 5.7 this AM, discussed her los, current JW She noted that she understands, and will continue to refuse blood products for now Vitals Vitals Vital Signs Date Time Temp Pulse Resp B/P (MAP) Pulse Ox O2 Delivery O2 Flow Rate FiO2 07/06/18 07:00 97.6 82 16 129/81 (97) 99 Room Air 97.6 Physical Exam General: Alert, Oriented X3, Cooperative, No acute distress Heart: Regular rate, No murmurs Lungs: Clear Abdomen: Normal bowel sounds, Soft Extremities: No clubbing, No edema Skin: No breakdown Labs LABS Laboratory Tests Test 07/05/18 11:29 07/05/18 16:25 07/05/18 20:46 07/06/18 02:35 Glucose (Fingerstick) 200 mg/dL (70-99) 189 mg/dL (70-99) 132 mg/dL (70-99) White Blood Count 8.7 x10^3/uL (4.0-11.0) Red Blood Count 1.94 x10^6/uL (3.50-5.40) Hemoglobin 5.7 g/dL (12.0-15.5) Hematocrit 17.2 % (36.0-47.0) Mean Corpuscular Volume 89 fL (79-100) Mean Corpuscular Hemoglobin 29 pg (25-35) Mean Corpuscular Hemoglobin Concent 33 g/dL (31-37) Red Cell Distribution Width 14.7 % (11.5-14.5) Platelet Count 245 x10^3/uL (140-400) Sodium Level 141 mmol/L (136-145) Potassium Level 5.6 mmol/L (3.5-5.1) Chloride Level 109 mmol/L (98-107) Carbon Dioxide Level 23 mmol/L (21-32) Anion Gap 9 (6-14) Blood Urea Nitrogen 76 mg/dL (7-20) Creatinine 3.4 mg/dL (0.6-1.0) Estimated GFR (Cockcroft-Gault) 15.8 Glucose Level 189 mg/dL (70-99) Calcium Level 9.0 mg/dL (8.5-10.1) Assessment and Plan Assessmemt and Plan Problems Medical Problems: (1) Acute anemia Status: Acute Comment Review of Relevant I have reviewed the following items raza (where applicable) has been applied. Labs Laboratory Tests Test 07/04/18 11:35 07/04/18 16:12 07/04/18 17:13 07/04/18 21:11 Glucose (Fingerstick) 81 mg/dL (70-99) 75 mg/dL (70-99) 116 mg/dL (70-99) 104 mg/dL (70-99) Test 07/04/18 23:25 07/05/18 03:20 07/05/18 07:22 07/05/18 11:29 Glucose (Fingerstick) 111 mg/dL (70-99) 103 mg/dL (70-99) 200 mg/dL (70-99) White Blood Count 8.5 x10^3/uL (4.0-11.0) Red Blood Count 1.96 x10^6/uL (3.50-5.40) Hemoglobin 5.7 g/dL (12.0-15.5) Hematocrit 17.4 % (36.0-47.0) Mean Corpuscular Volume 89 fL (79-100) Mean Corpuscular Hemoglobin 29 pg (25-35) Mean Corpuscular Hemoglobin Concent 33 g/dL (31-37) Red Cell Distribution Width 15.1 % (11.5-14.5) Platelet Count 243 x10^3/uL (140-400) Neutrophils (%) (Auto) 49 % (31-73) Lymphocytes (%) (Auto) 36 % (24-48) Monocytes (%) (Auto) 9 % (0-9) Eosinophils (%) (Auto) 5 % (0-3) Basophils (%) (Auto) 0 % (0-3) Neutrophils # (Auto) 4.1 x10^3uL (1.8-7.7) Lymphocytes # (Auto) 3.1 x10^3/uL (1.0-4.8) Monocytes # (Auto) 0.8 x10^3/uL (0.0-1.1) Eosinophils # (Auto) 0.5 x10^3/uL (0.0-0.7) Basophils # (Auto) 0.0 x10^3/uL (0.0-0.2) Sodium Level 143 mmol/L (136-145) Potassium Level 5.3 mmol/L (3.5-5.1) Chloride Level 110 mmol/L (98-107) Carbon Dioxide Level 22 mmol/L (21-32) Anion Gap 11 (6-14) Blood Urea Nitrogen 68 mg/dL (7-20) Creatinine 3.6 mg/dL (0.6-1.0) Estimated GFR (Cockcroft-Gault) 14.8 BUN/Creatinine Ratio 19 (6-20) Glucose Level 97 mg/dL (70-99) Calcium Level 8.7 mg/dL (8.5-10.1) Total Bilirubin 0.3 mg/dL (0.2-1.0) Aspartate Amino Transf (AST/SGOT) 29 U/L (15-37) Alanine Aminotransferase (ALT/SGPT) 7 U/L (14-59) Alkaline Phosphatase 53 U/L (46-116) Total Protein 5.7 g/dL (6.4-8.2) Albumin 2.1 g/dL (3.4-5.0) Albumin/Globulin Ratio 0.6 (1.0-1.7) Test 07/05/18 16:25 07/05/18 20:46 07/06/18 02:35 Glucose (Fingerstick) 189 mg/dL (70-99) 132 mg/dL (70-99) White Blood Count 8.7 x10^3/uL (4.0-11.0) Red Blood Count 1.94 x10^6/uL (3.50-5.40) Hemoglobin 5.7 g/dL (12.0-15.5) Hematocrit 17.2 % (36.0-47.0) Mean Corpuscular Volume 89 fL (79-100) Mean Corpuscular Hemoglobin 29 pg (25-35) Mean Corpuscular Hemoglobin Concent 33 g/dL (31-37) Red Cell Distribution Width 14.7 % (11.5-14.5) Platelet Count 245 x10^3/uL (140-400) Sodium Level 141 mmol/L (136-145) Potassium Level 5.6 mmol/L (3.5-5.1) Chloride Level 109 mmol/L (98-107) Carbon Dioxide Level 23 mmol/L (21-32) Anion Gap 9 (6-14) Blood Urea Nitrogen 76 mg/dL (7-20) Creatinine 3.4 mg/dL (0.6-1.0) Estimated GFR (Cockcroft-Gault) 15.8 Glucose Level 189 mg/dL (70-99) Calcium Level 9.0 mg/dL (8.5-10.1) Laboratory Tests Test 07/05/18 11:29 07/05/18 16:25 07/05/18 20:46 07/06/18 02:35 Glucose (Fingerstick) 200 mg/dL (70-99) 189 mg/dL (70-99) 132 mg/dL (70-99) White Blood Count 8.7 x10^3/uL (4.0-11.0) Red Blood Count 1.94 x10^6/uL (3.50-5.40) Hemoglobin 5.7 g/dL (12.0-15.5) Hematocrit 17.2 % (36.0-47.0) Mean Corpuscular Volume 89 fL (79-100) Mean Corpuscular Hemoglobin 29 pg (25-35) Mean Corpuscular Hemoglobin Concent 33 g/dL (31-37) Red Cell Distribution Width 14.7 % (11.5-14.5) Platelet Count 245 x10^3/uL (140-400) Sodium Level 141 mmol/L (136-145) Potassium Level 5.6 mmol/L (3.5-5.1) Chloride Level 109 mmol/L (98-107) Carbon Dioxide Level 23 mmol/L (21-32) Anion Gap 9 (6-14) Blood Urea Nitrogen 76 mg/dL (7-20) Creatinine 3.4 mg/dL (0.6-1.0) Estimated GFR (Cockcroft-Gault) 15.8 Glucose Level 189 mg/dL (70-99) Calcium Level 9.0 mg/dL (8.5-10.1) Medications Current Medications Ondansetron HCl (Zofran) 4 mg PRN Q8HRS PRN IV NAUSEA/VOMITING; Start 07/03/18 at 08:15; Stop 3/26/19 at 08:14; Status DC Acetaminophen/ Hydrocodone Bitart (Lortab 5/325) 1 tab 1X ONCE PO Last administered on 07/03/18 09:17; Start 07/03/18 at 09:15; Stop 07/03/18 at 09:16 ; Status DC Darbepoetin Denny (Aranesp) 60 mcg WEEKLYHS SQ Last administered on 07/03/18 20 :26; Start 07/03/18 at 21:00 Sodium Chloride 1,000 ml @ 75 mls/hr [id number] IV Last administered on 05:28; Start 07/03/18 at 14:00; Stop 07/05/18 at 17:36; Status DC Aspirin (Children'S Aspirin) 81 mg DAILY PO Last administered on 07/05/18 08: 55; Start 07/04/18 at 09:00 Atorvastatin Calcium (Lipitor) 20 mg HS PO Last administered on 07/05/18 22:00 ; Start 07/03/18 at 21:00 Losartan Potassium (Cozaar) 50 mg DAILY PO Last administered on 07/04/18 09:07 ; Start 07/04/18 at 09:00 Carvedilol (Coreg) 12.5 mg BIDWMEALS PO Last administered on 07/04/18 17:22; Start 07/03/18 at 17:00 Insulin Human Lispro (HumaLOG) 10 units TIDWMEALS SQ Last administered on 08:28; Start 07/03/18 at 17:00 Insulin Glargine (Lantus) 30 units QHS SQ Last administered on 07/05/18at 22:04 ; Start 07/03/18 at 21:00 Insulin Human Lispro (HumaLOG) 0-7 UNITS TIDWMEALS SQ ; Start 07/03/18 at 17:00 Dextrose (Dextrose 50%-Water Syringe) 12.5 gm PRN Q15MIN PRN IV SEE COMMENTS; Start 07/03/18 at 16:45 Oxycodone/ Acetaminophen (Percocet 5/325) 1 tab PRN Q4HRS PRN PO PAIN Last administered on 07/05/18 22:05; Start 07/03/18 at 18:00 Calcium Carbonate/ Glycine (Tums) 500 mg PRN AFTMEALHC PRN PO INDIGESTION Last administered on 07/03/18at 20:46; Start 07/03/18 at 20:30 Insulin Glargine (Lantus) 15 units 1X ONCE SQ Last administered on 07/04/18at 22:07; Start 07/04/18 at 22:00; Stop 07/04/18 at 22:01; Status DC Active Scripts Active Reported Lasix (Furosemide) 40 Mg Tablet 40 Mg PO DAILY Atorvastatin Calcium 20 Mg Tablet 20 Mg PO HS Carvedilol 25 Mg Tablet 12.5 Mg PO BIDWMEALS Fish Oil 1,000 Mg Capsule ([place]-3 Fatty Acids/Fish Oil) 1 Each Capsule 1 Each PO DAILY Aspirin 81 Mg Tab.chew 81 Mg PO DAILY Losartan Potassium (Losartan Potassium) 25 Mg Tablet 50 Mg PO DAILY Levemir (Insulin Detemir) 100 Unit/1 Ml Vial 30 Unit SQ HS Novolog (Insulin Aspart) 100 Unit/1 Ml Vial 10 Unit SQ TIDAC Vitals/I & O Vital Sign - Last 24 Hours 07/05/18 07/05/18 07/05/18 07/05/18 11:00 15:00 17:00 19:00 Temp 97.6 97.8 98.2 97.6 97.8 98.2 Pulse 70 71 71 73 Resp 18 18 18 B/P (MAP) 144/45 (78) 110/35 (60) 110/35 122/37 (65) Pulse Ox 91 99 98 O2 Delivery Room Air Room Air Room Air 07/05/18 07/05/18 07/05/18 07/05/18 20:00 22:05 23:00 23:05 Temp 98.8 98.8 Pulse 78 Resp 18 18 20 B/P (MAP) 128/46 (73) Pulse Ox 95 O2 Delivery Room Air Room Air Room Air Room Air 07/06/18 07/06/18 03:00 07:00 Temp 99.2 97.6 99.2 97.6 Pulse 79 82 Resp 18 16 B/P (MAP) 104/40 (61) 129/81 (97) Pulse Ox 95 99 O2 Delivery Room Air Room Air Intake and Output 07/05/18 07/05/18 07/06/18 14:59 22:59 06:59 Intake Total 360 ml 920 ml Output Total 500 ml 200 ml Balance -140 ml 720 ml CALLIE GONZÁLES MD Jul 06, 2018 10:26
[2018-07-06] MEDS: ASPIRIN CHEWABLE 81 MG TABLET. PO SCH (10:28)
--- NOTE | 2018-07-06 10:50 | NUR ---
BIMAL following. Discussed with RN. BIMAL spoke with pt's daughter, Flor (ph:[phone], ) she is concerned about pt returning home because of her weakness and questioned if there are other facilities that would take pt. BIMAL explained the reason pt could not return to [facility] is because of low hg, and [facility] would have to send pt back to [facility]. Flor does not feel as though pt can return home because she will be alone at night. BIMAL spoke with Dr. Chaves, pt and family requesting a [facility] transfer. BIMAL called to initiate the inpatient transfer (ph:[phone], fax: [phone]). The home health company pt's had was [facility]. RN notified. BIMAL will continue to follow.
[2018-07-06 11:00] VITALS: BP 132/61
--- NOTE | 2018-07-06 11:59 | PDOC ---
Renal-Progress Notes Subjective Notes Notes HAD SOB THIS AM AND NEEDED O2 History of Present Illness Hx of present illness NOT GETTING ANY BETTER, PALE AND WEAK DUE TO ANEMIA, HAD RECEIVED IV IRON AND ARANESP STARTED Vitals Vitals Vital Signs Date Time Temp Pulse Resp B/P (MAP) Pulse Ox O2 Delivery O2 Flow Rate FiO2 07/06/18 11:26 Room Air 07/06/18 11:00 97.8 68 16 132/61 (84) 99 97.8 Weight Weight [ ] I.O. Intake and Output Intake and Output 07/06/18 07:00 Intake Total 1280 ml Output Total 700 ml Balance 580 ml Intake Oral 680 ml IV Total 600 ml Output Urine Total 700 ml # Voids 4 Labs Labs Laboratory Tests Test 07/05/18 16:25 07/05/18 20:46 07/06/18 02:35 07/06/18 07:38 Glucose (Fingerstick) 189 mg/dL (70-99) 132 mg/dL (70-99) 168 mg/dL (70-99) White Blood Count 8.7 x10^3/uL (4.0-11.0) Red Blood Count 1.94 x10^6/uL (3.50-5.40) Hemoglobin 5.7 g/dL (12.0-15.5) Hematocrit 17.2 % (36.0-47.0) Mean Corpuscular Volume 89 fL (79-100) Mean Corpuscular Hemoglobin 29 pg (25-35) Mean Corpuscular Hemoglobin Concent 33 g/dL (31-37) Red Cell Distribution Width 14.7 % (11.5-14.5) Platelet Count 245 x10^3/uL (140-400) Sodium Level 141 mmol/L (136-145) Potassium Level 5.6 mmol/L (3.5-5.1) Chloride Level 109 mmol/L (98-107) Carbon Dioxide Level 23 mmol/L (21-32) Anion Gap 9 (6-14) Blood Urea Nitrogen 76 mg/dL (7-20) Creatinine 3.4 mg/dL (0.6-1.0) Estimated GFR (Cockcroft-Gault) 15.8 Glucose Level 189 mg/dL (70-99) Calcium Level 9.0 mg/dL (8.5-10.1) Test 07/06/18 11:18 Glucose (Fingerstick) 156 mg/dL (70-99) Review of Systems Constitutional: yes: malaise, weakness, alert, oriented Ears/Nose/Throat: Yes: no symptom reported Eyes: Yes: no symptom reported Pulmonary: Yes dyspnea Cardiovascular: Yes no symptom reported Gastrointestional: Yes: no symptom reported Genitourinary: Yes: no symptom reported Musculoskeletal: Yes: no symptom reported Skin: Yes no symptom reported Psychiatric/Neurological: Yes: no symptom reported Endocrine: Yes: no symptom reported Hematologic/Lymphatic: Yes: no symptom reported Physical Exam General Appearance: no apparent distress Skin: warm, dry, other (PALE) Respiratory: bilateral CTA Heart: S1S2, RRR Abdomen: soft, bowel sounds present Genitourinary: bladder flat Extremities: pulses present Neurology: alert, oriented Musculoskeletal: Osteoarthritis Assessment Assessment IMP HYPERKALEMIA DYSPNEA SEVERE ANEMIA OF ADVANCED CKD-WORSE WITH HGB OF 5.7 DM II HTN HYPERKALEMIA STAGE 4 CKD-CR NO DIFFERENT BUT NOW RECURRENT HYPERKALEMIA DECONDITIONING DUE TO ANEMIA S/P LEFT RECENT HIP REPLACEMENT PLAN RECENTLY RECEIVED IV IRON STARTED ARANESP PP WONT TAKE HER DUE TO LOW HGB BUT ALSO DONT WANT TO GIVE ARANESP DUE TO EXPENSE EXPLAINED TO HER THE DANGERS OF SUCH LOW HGB WITH DYSPNEA THIS AM, HYPERKALEMIA AND LOW HGB BELIEVE ITS BEST FOR HER TO START HD. HER AVF IS NOT MATURE AND SO SHE WILL NEED A TUNNELED HD CATHETER TO START DIALYSIS EXPLAINED TO HER THAT I WILL HAVE SW SET UP HER OP HD WITH THE [facility] UPON D/C AND THAT I WOULD CALL THEM TO UPDATED SHE DOESN'T KNOW WHAT TO DO AND STATED THAT SHE WILL THINK ABOUT IT CHECK PO4 AND PTH-MAY NEED BINDERS AND VIT D ANALOG IZZY MCLEOD MD Jul 06, 2018 11:58
--- NOTE | 2018-07-06 12:23 | NUR ---
Pt is not wanting dialysis at the moment. Pt was advised to inform us if she changed her mind due to the fact of needing it, us having to schedule it, and needing to be npo.
--- NOTE | 2018-07-06 14:01 | NUR ---
SW following. [facility] transfer was denied due to pt not meeting inpatient criteria. BIMAL faxed referral to [facility] to determine if they could accept pt and cover the cost of Procrit or Aranesp. SW awaiting confirmation. RN notified.
[2018-07-06 15:00] VITALS: BP 102/35
--- NOTE | 2018-07-06 15:57 | NUR ---
BIMAL spoke with Dr. Chaves - Dr. Chaves had a conversation about pt becoming DNR and starting dialysis. Dr. Chaves to address this again tomorrow with pt after pt has an opportunity to speak with her daughter. BIMAL left voicemail for [facility] to determine if they are able to accept pt or not. BIMAL will continue to follow.
[2018-07-06 19:15] VITALS: BP 147/85
[2018-07-06] MEDS: ATORVASTATIN CALCIUM 20 MG TABLET PO SCH (21:50)
[2018-07-06] MEDS: INSULIN GLARGINE 300 UNITS/3 ML INSULN.PEN. SQ SCH (21:55)
[2018-07-06 23:00] VITALS: BP 123/69
[2018-07-07 03:11] VITALS: BP 163/80
[2018-07-07 06:26] LABS: RED BLOOD COUNT 1.97 x10^6/uL (3.50-5.40); RED CELL DISTRIBUTION WIDTH 14.9 % (11.5-14.5); WHITE BLOOD COUNT 9.9 x10^3/uL (4.0-11.0)
[2018-07-07 06:37] LABS: HEMATOCRIT 17.5 % (36.0-47.0); HEMOGLOBIN 5.8 g/dL (12.0-15.5)
[2018-07-07 06:48] LABS: CALCIUM 9.1 mg/dL (8.5-10.1); CREATININE 3.3 mg/dL (0.6-1.0); GFR 16.4; MAGNESIUM 2.3 mg/dL (1.8-2.4); PHOSPHORUS 3.7 mg/dL (2.6-4.7); POTASSIUM 5.8 mmol/L (3.5-5.1)
[2018-07-07 07:00] VITALS: BP 114/43
[2018-07-07] MEDS: INSULIN LISPRO 300 UNITS/3 ML INSULN.PEN. SQ SCH ×6 (08:00→17:16)
[2018-07-07] MEDS: CARVEDILOL 12.5 MG TABLET. PO SCH ×2 (08:59→17:14)
[2018-07-07] MEDS: ASPIRIN CHEWABLE 81 MG TABLET. PO SCH (08:59)
[2018-07-07] MEDS: oxyCODONE/APAP 5/325 1 TAB TABLET PO PRN ×2 (08:59→19:13)
[2018-07-07] MEDS: LOSARTAN POTASSIUM 50 MG TABLET. PO SCH (08:59)
--- NOTE | 2018-07-07 10:33 | NUR ---
SW following for discharge planning. Discussed with RN, [facility] have accepted pt pending insurance authorization. [facility] queried whether pt was needing IV iron and if she was okay with having Procrit. RN checked with pt regarding Procrit - pt is agreeable to receiving Procrit. SW left voicemail for pt's daughter, Flor informing of the referral to [facility]. BIMAL will continue to follow.
[2018-07-07 11:00] VITALS: BP 128/50
[2018-07-07] MEDS ORDERED: CYANOCOBALAMIN (VITAMIN B-12) 1,000 MCG/ML VIAL IM ONE (11:00)
[2018-07-07] MEDS ORDERED: FERR325T14 PO (11:06)
[2018-07-07] MEDS ORDERED: DARBEPOETIN ALFA IN POLYSORBAT SQ (11:06)
[2018-07-07] MEDS ORDERED: CYAN1TAB19 PO (11:06)
--- NOTE | 2018-07-07 11:16 | NUR ---
SW met with pt and pt's daughter, Flor at bedside. SW informed of [facility] and the pending insurance. SW to contact Flor when more information is known.
[2018-07-07] MEDS ORDERED: SODIUM POLYSTYRENE SULFONATE 15 GM/60 ML ORAL.SUSP. PO ONE (11:30)
--- NOTE | 2018-07-07 11:43 | PDOC ---
Renal-Progress Notes Subjective Notes Notes NONE History of Present Illness Hx of present illness STABLE Vitals Vitals Vital Signs Date Time Temp Pulse Resp B/P (MAP) Pulse Ox O2 Delivery O2 Flow Rate FiO2 07/07/18 10:11 Room Air 07/07/18 08:59 72 114/43 07/07/18 07:00 99.0 16 95 2.0 99.0 Weight Weight [ ] I.O. Intake and Output Intake and Output 07/07/18 06:59 Intake Total 360 ml Balance 360 ml Intake Oral 360 ml # Voids 8 Labs Labs Laboratory Tests Test 07/06/18 16:57 07/06/18 21:25 07/07/18 06:03 07/07/18 07:32 Glucose (Fingerstick) 207 mg/dL (70-99) 153 mg/dL (70-99) 127 mg/dL (70-99) White Blood Count 9.9 x10^3/uL (4.0-11.0) Red Blood Count 1.97 x10^6/uL (3.50-5.40) Hemoglobin 5.8 g/dL (12.0-15.5) Hematocrit 17.5 % (36.0-47.0) Mean Corpuscular Volume 89 fL (79-100) Mean Corpuscular Hemoglobin 30 pg (25-35) Mean Corpuscular Hemoglobin Concent 33 g/dL (31-37) Red Cell Distribution Width 14.9 % (11.5-14.5) Platelet Count 257 x10^3/uL (140-400) Sodium Level 141 mmol/L (136-145) Potassium Level 5.8 mmol/L (3.5-5.1) Chloride Level 107 mmol/L (98-107) Carbon Dioxide Level 23 mmol/L (21-32) Anion Gap 11 (6-14) Blood Urea Nitrogen 78 mg/dL (7-20) Creatinine 3.3 mg/dL (0.6-1.0) Estimated GFR (Cockcroft-Gault) 16.4 Glucose Level 141 mg/dL (70-99) Calcium Level 9.1 mg/dL (8.5-10.1) Phosphorus Level 3.7 mg/dL (2.6-4.7) Magnesium Level 2.3 mg/dL (1.8-2.4) Review of Systems Constitutional: yes: malaise, weakness, alert, oriented Ears/Nose/Throat: Yes: no symptom reported Eyes: Yes: no symptom reported Pulmonary: Yes dyspnea Cardiovascular: Yes no symptom reported Gastrointestional: Yes: no symptom reported Genitourinary: Yes: no symptom reported Musculoskeletal: Yes: no symptom reported Skin: Yes no symptom reported Psychiatric/Neurological: Yes: no symptom reported Endocrine: Yes: no symptom reported Hematologic/Lymphatic: Yes: no symptom reported Physical Exam General Appearance: no apparent distress Skin: warm, dry, other (PALE) Respiratory: bilateral CTA Heart: S1S2, RRR Abdomen: soft, bowel sounds present Genitourinary: bladder flat Extremities: pulses present Neurology: alert, oriented Musculoskeletal: Osteoarthritis Assessment Assessment IMP HYPERKALEMIA DYSPNEA SEVERE ANEMIA OF ADVANCED CKD-WORSE WITH HGB OF 5.7 DM II HTN HYPERKALEMIA STAGE 4 CKD-CR NO DIFFERENT BUT NOW RECURRENT HYPERKALEMIA DECONDITIONING DUE TO ANEMIA S/P LEFT RECENT HIP REPLACEMENT PLAN RECENTLY RECEIVED IV IRON STARTED ARANESP PP WONT TAKE HER DUE TO LOW HGB BUT ALSO DONT WANT TO GIVE ARANESP DUE TO EXPENSE EXPLAINED TO HER THE DANGERS OF SUCH LOW HGB WITH DYSPNEA THIS AM, HYPERKALEMIA AND LOW HGB BELIEVE ITS BEST FOR HER TO START HD. HER AVF IS NOT MATURE AND SO SHE WILL NEED A TUNNELED HD CATHETER TO START DIALYSIS EXPLAINED TO HER THAT I WILL HAVE SW SET UP HER OP HD WITH THE [facility] UPON D/C AND THAT I WOULD CALL THEM TO UPDATED SHE DOESN'T KNOW WHAT TO DO AND STATED THAT SHE WILL THINK ABOUT IT CHECK PO4 AND PTH-MAY NEED BINDERS AND VIT D ANALOG ABOVE, SHE DOES NOT WANT TO START DIALYSIS, WILL ONLY TRUST [facility] PLAN IS TO GIVE HER KAYEXALATE TODAY AND D/C HER WITH OP ARANESP SET UP HAVE ASKED HER TO CONTACT [facility] IMMEDIATELY TO SET UP F/U D/W ATTENDING IZZY MCLEOD MD Jul 07, 2018 11:43
[2018-07-07] MEDS: VITAMIN B12,B9,B6 COMPLEX 1 TABLET. PO SCH (11:58)
[2018-07-07 12:15] LABS: CREATININE PTH 3.15 mg/dL (0.57-1.00); PHOSPHORUS PTH 3.6 mg/dL (2.5-4.5); PTH INTACT 169 pg/mL (15-65)
[2018-07-07 15:00] VITALS: BP 104/49
--- NOTE | 2018-07-07 16:19 | PDOC3 ---
Discharge Summary Visit Information Date of Admission: Jul 03, 2018 Date of Discharge: Jul 07, 2018 Final Diagnosis symptomatic anemia weakness and debilty, fall risk CKD 4, Anemia with Hgb <7.0 (refusing blood products- pt is a practicing Jehovas Witness Hyperkalemia Recent hip arthroplasty DM2 HLD Problems Medical Problems: (1) Acute anemia Status: Acute Brief Hospital Course Allergies Allergies Coded Allergies Type Severity Reaction Last Updated Verified lisinopril Allergy Intermediate 06/26/18 Yes Vital Signs Vital Signs Date Time Temp Pulse Resp B/P (MAP) Pulse Ox O2 Delivery O2 Flow Rate FiO2 07/07/18 15:00 98.2 72 16 104/49 (67) 98 Room Air 98.2 07/07/18 07:00 2.0 Lab Results Laboratory Tests Test 07/05/18 16:25 07/05/18 20:46 07/06/18 02:35 07/06/18 07:38 Glucose (Fingerstick) 189 mg/dL (70-99) 132 mg/dL (70-99) 168 mg/dL (70-99) White Blood Count 8.7 x10^3/uL (4.0-11.0) Red Blood Count 1.94 x10^6/uL (3.50-5.40) Hemoglobin 5.7 g/dL (12.0-15.5) Hematocrit 17.2 % (36.0-47.0) Mean Corpuscular Volume 89 fL (79-100) Mean Corpuscular Hemoglobin 29 pg (25-35) Mean Corpuscular Hemoglobin Concent 33 g/dL (31-37) Red Cell Distribution Width 14.7 % (11.5-14.5) Platelet Count 245 x10^3/uL (140-400) Sodium Level 141 mmol/L (136-145) Potassium Level 5.6 mmol/L (3.5-5.1) Chloride Level 109 mmol/L (98-107) Carbon Dioxide Level 23 mmol/L (21-32) Anion Gap 9 (6-14) Blood Urea Nitrogen 76 mg/dL (7-20) Creatinine 3.4 mg/dL (0.6-1.0) Estimated GFR (Cockcroft-Gault) 15.8 Glucose Level 189 mg/dL (70-99) Calcium Level 9.0 mg/dL (8.5-10.1) Test 07/06/18 11:18 07/06/18 16:57 07/06/18 21:25 07/07/18 06:03 Glucose (Fingerstick) 156 mg/dL (70-99) 207 mg/dL (70-99) 153 mg/dL (70-99) White Blood Count 9.9 x10^3/uL (4.0-11.0) Red Blood Count 1.97 x10^6/uL (3.50-5.40) Hemoglobin 5.8 g/dL (12.0-15.5) Hematocrit 17.5 % (36.0-47.0) Mean Corpuscular Volume 89 fL (79-100) Mean Corpuscular Hemoglobin 30 pg (25-35) Mean Corpuscular Hemoglobin Concent 33 g/dL (31-37) Red Cell Distribution Width 14.9 % (11.5-14.5) Platelet Count 257 x10^3/uL (140-400) Sodium Level 141 mmol/L (136-145) Potassium Level 5.8 mmol/L (3.5-5.1) Chloride Level 107 mmol/L (98-107) Carbon Dioxide Level 23 mmol/L (21-32) Anion Gap 11 (6-14) Blood Urea Nitrogen 78 mg/dL (7-20) Creatinine 3.3 mg/dL (0.6-1.0) Estimated GFR (Non- 14 (>59) Estimated GFR (Cockcroft-Gault) 16.4 Glucose Level 141 mg/dL (70-99) Calcium Level 9.1 mg/dL (8.5-10.1) Phosphorus Level 3.7 mg/dL (2.6-4.7) Magnesium Level 2.3 mg/dL (1.8-2.4) EGFR 16 (>59) PTH (Intact) Specimen Description Comment (.) Parathyroid Hormone (Intact) 169 pg/mL (15-65) Calcium (PTH Intact) 9.0 mg/dL (8.7-10.3) Creatinine (PTH Intact) 3.15 mg/dL (0.57-1.00) Phosphorus (PTH Intact) 3.6 mg/dL (2.5-4.5) Test 07/07/18 07:32 07/07/18 11:58 Glucose (Fingerstick) 127 mg/dL (70-99) 180 mg/dL (70-99) Laboratory Tests Test 07/06/18 16:57 07/06/18 21:25 07/07/18 06:03 07/07/18 07:32 Glucose (Fingerstick) 207 mg/dL (70-99) 153 mg/dL (70-99) 127 mg/dL (70-99) White Blood Count 9.9 x10^3/uL (4.0-11.0) Red Blood Count 1.97 x10^6/uL (3.50-5.40) Hemoglobin 5.8 g/dL (12.0-15.5) Hematocrit 17.5 % (36.0-47.0) Mean Corpuscular Volume 89 fL (79-100) Mean Corpuscular Hemoglobin 30 pg (25-35) Mean Corpuscular Hemoglobin Concent 33 g/dL (31-37) Red Cell Distribution Width 14.9 % (11.5-14.5) Platelet Count 257 x10^3/uL (140-400) Sodium Level 141 mmol/L (136-145) Potassium Level 5.8 mmol/L (3.5-5.1) Chloride Level 107 mmol/L (98-107) Carbon Dioxide Level 23 mmol/L (21-32) Anion Gap 11 (6-14) Blood Urea Nitrogen 78 mg/dL (7-20) Creatinine 3.3 mg/dL (0.6-1.0) Estimated GFR (Non- 14 (>59) Estimated GFR (Cockcroft-Gault) 16.4 Glucose Level 141 mg/dL (70-99) Calcium Level 9.1 mg/dL (8.5-10.1) Phosphorus Level 3.7 mg/dL (2.6-4.7) Magnesium Level 2.3 mg/dL (1.8-2.4) EGFR 16 (>59) PTH (Intact) Specimen Description Comment (.) Parathyroid Hormone (Intact) 169 pg/mL (15-65) Calcium (PTH Intact) 9.0 mg/dL (8.7-10.3) Creatinine (PTH Intact) 3.15 mg/dL (0.57-1.00) Phosphorus (PTH Intact) 3.6 mg/dL (2.5-4.5) Test 07/07/18 11:58 Glucose (Fingerstick) 180 mg/dL (70-99) Brief Hospital Course Ms. Bearden is a 77 old admit with weakness and debility, anemia, Hgb 6 or lower Hgb still 5.7 at [place] , discussed her los, is practicing JW cont b12 and iron and epo, we encouraged starting hemodialysis for her hyperkalemai and symptomatioc anemia , Discharge Information Condition at Discharge: Improved Follow Up: Weeks Disposition/Orders: D/C to Another Facility (SNU) Scheduled Aspirin (Aspirin) 81 Mg Tab.chew, 81 MG PO DAILY for BLOOD THINNER, (Reported) Entered as Reported by: GILBERTO FERGUSON on 06/12/181520 Last Action: Continued on 07/03/181641 by JONATAN KELLOGG Atorvastatin Calcium (Atorvastatin Calcium) 20 Mg Tablet, 20 MG PO HS for FOR CHOLESTEROL, #30 Ref 0 (Reported) Entered as Reported by: GILBERTO FERGUSON on 06/12/181520 Last Action: Continued on 07/03/181641 by JONATAN KELLOGG Carvedilol (Carvedilol) 25 Mg Tablet, 12.5 MG PO BIDWMEALS for CARDIAC, ( Reported) Entered as Reported by: GILBERTO FERGUSON on 06/12/181520 Last Action: Converted on 07/03/181641 by JONATAN KELLOGG Cyanocobalamin/Fa/Pyridoxine (Folbic Tablet) 1 Each Tablet, 1 TAB PO DAILY for anemia, #100 Prescribed by: CALLIE GONZÁLES on 07/07/18 1106 Ferrous Sulfate (Ferrous Sulfate) 325 Mg Tablet, 1 TAB PO DAILY for anemia, #30 Prescribed by: CALLIE GONZÁLES on 07/07/18 1106 Furosemide (Lasix) 40 Mg Tablet, 40 MG PO DAILY for CONTROL BP, (Reported) Entered as Reported by: GILBERTO FERGUSON on 06/12/181520 Last Action: Reviewed on 07/03/181640 by JONATAN KELLOGG Insulin Aspart (Novolog) 100 Unit/1 Ml Vial, 10 UNIT SQ TIDAC for CONTROL DIABETES, (Reported) Entered as Reported by: CHRISTINA CHRISTIANSON on 08/17/16 1250 Last Action: Converted on 07/03/181641 by JONATAN KELLOGG Insulin Detemir (Levemir) 100 Unit/1 Ml Vial, 30 UNIT SQ HS for CONTROL DIABETES , (Reported) Entered as Reported by: CHRISTINA CHRISTIANSON on 08/17/16 1250 Last Action: Converted on 07/03/181641 by JONATAN KELLOGG Losartan Potassium (Losartan Potassium ) 25 Mg Tablet, 50 MG PO DAILY for CONTROL BP, (Reported) Entered as Reported by: CHRISTINA CHRISTIANSON on 08/17/16 1250 Last Action: Continued on 07/03/181641 by JONATAN KELLOGG [place]-3 Fatty Acids/Fish Oil (Fish Oil 1,000 Mg Capsule) 1 Each Capsule, 1 EACH PO DAILY for SUPPLEMENT, (Reported) Entered as Reported by: GILBERTO FERGUSON on 06/12/18 1521 Last Action: Reviewed on 07/03/181640 by JONATAN KELLOGG [Darbepoetin Denny In Polysorbat] 60 MCG/0.3 ML DISP.SYRIN, 60 MCG SQ WEEKLY, #4 Prescribed by: CALLIE GONZÁLES on 07/07/18 1106 Patient Instructions Patient Instructions > 30 min 2 visits discussed with renal and face to face CALLIE GONZÁLES MD Jul 07, 2018 16:19
[2018-07-07 19:00] VITALS: BP 122/66
[2018-07-07] MEDS: ATORVASTATIN CALCIUM 20 MG TABLET PO SCH (21:14)
[2018-07-07] MEDS: INSULIN GLARGINE 300 UNITS/3 ML INSULN.PEN. SQ SCH (21:21)
[2018-07-07 23:00] VITALS: BP 111/61
[2018-07-08] VITALS (7 sets, daily range): BP systolic 110–125; BP diastolic 42–62
[2018-07-08] MEDS: INSULIN LISPRO 300 UNITS/3 ML INSULN.PEN. SQ SCH ×6 (08:00→17:16)
[2018-07-08] MEDS: VITAMIN B12,B9,B6 COMPLEX 1 TABLET. PO SCH (08:24)
[2018-07-08] MEDS: ASPIRIN CHEWABLE 81 MG TABLET. PO SCH (08:24)
[2018-07-08] MEDS: LOSARTAN POTASSIUM 50 MG TABLET. PO SCH (08:25)
[2018-07-08] MEDS: CARVEDILOL 12.5 MG TABLET. PO SCH ×2 (08:25→17:14)
--- NOTE | 2018-07-08 11:08 | PDOC ---
PROGRESS NOTES Chief Complaint Chief Complaint LATE ENTRY, pt seen 07/07, 2 visits, discussed with renal, discussed DC plan, time was about 30 min total symptomatic anemia weakness and debilty, fall risk CKD 4, Anemia with Hgb <7.0 refusing blood products- pt is a practicing Jehovas Witness Hyperkalemia Recent hip arthroplasty DM2 HLD History of Present Illness History of Present Illness very pleasant but pale, hgb still low, strength improving She noted that she understands, and will continue to refuse blood products for now higher risk of event discussed, I recommended changing to no code status as it would fit this current plan better, that if she arrests, it will likely be somewhat due to the anemia problem Vitals Vitals Vital Signs Date Time Temp Pulse Resp B/P (MAP) Pulse Ox O2 Delivery O2 Flow Rate FiO2 07/08/18 08:25 78 119/59 07/08/18 07:10 Room Air 07/08/18 07:00 18 96 07/08/18 03:00 98.1 98.1 07/07/18 07:00 2.0 Physical Exam General: Alert, Oriented X3, Cooperative, No acute distress Heart: Regular rate, No murmurs Lungs: Clear Abdomen: Normal bowel sounds, Soft Extremities: No clubbing, No edema Skin: No breakdown Labs LABS Laboratory Tests Test 07/07/18 11:58 07/07/18 16:57 07/07/18 20:55 07/08/18 07:33 Glucose (Fingerstick) 180 mg/dL (70-99) 164 mg/dL (70-99) 134 mg/dL (70-99) 119 mg/dL (70-99) Assessment and Plan Assessmemt and Plan Problems Medical Problems: (1) Acute anemia Status: Acute Comment Review of Relevant I have reviewed the following items raza (where applicable) has been applied. Labs Laboratory Tests Test 07/06/18 11:18 07/06/18 16:57 07/06/18 21:25 07/07/18 06:03 Glucose (Fingerstick) 156 mg/dL (70-99) 207 mg/dL (70-99) 153 mg/dL (70-99) White Blood Count 9.9 x10^3/uL (4.0-11.0) Red Blood Count 1.97 x10^6/uL (3.50-5.40) Hemoglobin 5.8 g/dL (12.0-15.5) Hematocrit 17.5 % (36.0-47.0) Mean Corpuscular Volume 89 fL (79-100) Mean Corpuscular Hemoglobin 30 pg (25-35) Mean Corpuscular Hemoglobin Concent 33 g/dL (31-37) Red Cell Distribution Width 14.9 % (11.5-14.5) Platelet Count 257 x10^3/uL (140-400) Sodium Level 141 mmol/L (136-145) Potassium Level 5.8 mmol/L (3.5-5.1) Chloride Level 107 mmol/L (98-107) Carbon Dioxide Level 23 mmol/L (21-32) Anion Gap 11 (6-14) Blood Urea Nitrogen 78 mg/dL (7-20) Creatinine 3.3 mg/dL (0.6-1.0) Estimated GFR (Non- 14 (>59) Estimated GFR (Cockcroft-Gault) 16.4 Glucose Level 141 mg/dL (70-99) Calcium Level 9.1 mg/dL (8.5-10.1) Phosphorus Level 3.7 mg/dL (2.6-4.7) Magnesium Level 2.3 mg/dL (1.8-2.4) EGFR 16 (>59) PTH (Intact) Specimen Description Comment (.) Parathyroid Hormone (Intact) 169 pg/mL (15-65) Calcium (PTH Intact) 9.0 mg/dL (8.7-10.3) Creatinine (PTH Intact) 3.15 mg/dL (0.57-1.00) Phosphorus (PTH Intact) 3.6 mg/dL (2.5-4.5) Test 07/07/18 07:32 07/07/18 11:58 07/07/18 16:57 07/07/18 20:55 Glucose (Fingerstick) 127 mg/dL (70-99) 180 mg/dL (70-99) 164 mg/dL (70-99) 134 mg/dL (70-99) Test 07/08/18 07:33 Glucose (Fingerstick) 119 mg/dL (70-99) Laboratory Tests Test 07/07/18 11:58 07/07/18 16:57 07/07/18 20:55 07/08/18 07:33 Glucose (Fingerstick) 180 mg/dL (70-99) 164 mg/dL (70-99) 134 mg/dL (70-99) 119 mg/dL (70-99) Medications Current Medications Ondansetron HCl (Zofran) 4 mg PRN Q8HRS PRN IV NAUSEA/VOMITING; Start 07/03/18 at 08:15; Stop 07/04/18 at 08:14; Status DC Acetaminophen/ Hydrocodone Bitart (Lortab 5/325) 1 tab 1X ONCE PO Last administered on 07/03/18 09:17; Start 07/03/18 at 09:15; Stop 07/03/18 at 09:16 ; Status DC Darbepoetin Denny (Aranesp) 60 mcg WEEKLYHS SQ Last administered on 07/03/18 20 :26; Start 07/03/18 at 21:00 Sodium Chloride 1,000 ml @ 75 mls/hr [id number] IV Last administered on 05:28; Start 07/03/18 at 14:00; Stop 07/05/18 at 17:36; Status DC Aspirin (Children'S Aspirin) 81 mg DAILY PO Last administered on 07/08/18 08: 24; Start 07/04/18 at 09:00 Atorvastatin Calcium (Lipitor) 20 mg HS PO Last administered on 07/07/18 21:14 ; Start 07/03/18 at 21:00 Losartan Potassium (Cozaar) 50 mg DAILY PO Last administered on 07/08/18 08:25 ; Start 07/04/18 at 09:00 Carvedilol (Coreg) 12.5 mg BIDWMEALS PO Last administered on 07/08/18 08:25; Start 07/03/18 at 17:00 Insulin Human Lispro (HumaLOG) 10 units TIDWMEALS SQ Last administered on 08:28; Start 07/03/18 at 17:00 Insulin Glargine (Lantus) 30 units QHS SQ Last administered on 07/07/18 21:21 ; Start 07/03/18 at 21:00 Insulin Human Lispro (HumaLOG) 0-7 UNITS TIDWMEALS SQ Last administered on 3/29 /19at 17:16; Start 07/03/18 at 17:00 Dextrose (Dextrose 50%-Water Syringe) 12.5 gm PRN Q15MIN PRN IV SEE COMMENTS; Start 07/03/18 at 16:45 Oxycodone/ Acetaminophen (Percocet 5/325) 1 tab PRN Q4HRS PRN PO PAIN Last administered on 07/07/18 19:13; Start 07/03/18 at 18:00 Calcium Carbonate/ Glycine (Tums) 500 mg PRN AFTMEALHC PRN PO INDIGESTION Last administered on 07/03/18at 20:46; Start 07/03/18 at 20:30 Insulin Glargine (Lantus) 15 units 1X ONCE SQ Last administered on 07/04/18 22:07; Start 07/04/18 at 22:00; Stop 07/04/18 at 22:01; Status DC Vitamin B Complex (Folbic Tablet) 1 tab DAILY PO Last administered on 08:24; Start 07/07/18 at 11:00 Cyanocobalamin (Vitamin B-12) 1,000 mcg 1X ONCE IM Last administered on 11:59; Start 07/07/18 at 11:00; Stop 07/07/18 at 11:01; Status DC Sodium Polystyrene Sulfonate (Kayexalate) 15 gm 1X ONCE PO Last administered on 07/07/18 11:58; Start 07/07/18 at 11:30; Stop 07/07/18 at 11:31; Status DC Active Scripts Active Ferrous Sulfate 325 Mg Tablet 1 Tab PO DAILY Folbic Tablet (Cyanocobalamin/Fa/Pyridoxine) 1 Each Tablet 1 Tab PO DAILY [Darbepoetin Denny In Polysorbat] 60 MCG/0.3 ML Disp.syrin 60 Mcg SQ WEEKLY Reported Lasix (Furosemide) 40 Mg Tablet 40 Mg PO DAILY Atorvastatin Calcium 20 Mg Tablet 20 Mg PO HS Carvedilol 25 Mg Tablet 12.5 Mg PO BIDWMEALS Fish Oil 1,000 Mg Capsule ([place]-3 Fatty Acids/Fish Oil) 1 Each Capsule 1 Each PO DAILY Aspirin 81 Mg Tab.chew 81 Mg PO DAILY Losartan Potassium (Losartan Potassium) 25 Mg Tablet 50 Mg PO DAILY Levemir (Insulin Detemir) 100 Unit/1 Ml Vial 30 Unit SQ HS Novolog (Insulin Aspart) 100 Unit/1 Ml Vial 10 Unit SQ TIDAC Vitals/I & O Vital Sign - Last 24 Hours 07/07/18 07/07/18 07/07/18 07/07/18 15:00 17:14 19:00 19:13 Temp 98.2 98.9 98.2 98.9 Pulse 72 72 76 Resp 16 16 16 B/P (MAP) 104/49 (67) 104/49 122/66 (84) Pulse Ox 98 98 O2 Delivery Room Air Room Air Room Air 07/07/18 07/07/18 07/07/18 07/08/18 20:13 20:15 23:00 03:00 Temp 98.1 98.1 98.1 98.1 Pulse 72 63 Resp 16 16 16 B/P (MAP) 111/61 (78) 110/42 (64) Pulse Ox 98 96 O2 Delivery Room Air Room Air Room Air Room Air 07/08/18 07/08/18 07/08/18 07/08/18 07:00 07:10 08:25 08:25 Pulse 78 59 78 Resp 18 B/P (MAP) 119/59 (79) 119/59 119/59 Pulse Ox 96 O2 Delivery Room Air Room Air Intake and Output 07/07/18 07/07/18 07/08/18 15:00 23:00 07:00 Intake Total 120 ml 120 ml Output Total 400 ml Balance -400 ml 120 ml 120 ml CALLIE GONZÁLES MD Jul 08, 2018 11:08
--- NOTE | 2018-07-08 11:10 | SNU/HH DC ---
DISCHARGE ORDERS DISCHARGE INFORMATION: DISCHARGE DATE: Jul 08, 2018 FINAL DIAGNOSIS Problems Medical Problems: (1) Acute anemia Status: Acute CONDITION ON DISCHARGE: Stable CODE STATUS: Code Status: Full NURSING HOME: SNF STAY <30 DAYS: Yes POST DISCHARGE ORDERS: ACTIVITY ORDERS: Activity as tolerated WEIGHT BEARING STATUS: As tolerated BATHING ORDERS: Shower-keep dressing dry DIET AFTER DISCHARGE: Cardiac WOUND/INCISION CARE: Other, see below (Wound care per surgeon) FOLLOW-UP: PHYSICIAN FOLLOW-UP: renal (Dr. Fraser) and primary care at , next avail, TREATMENT/EQUIPMENT ORDERS: ADAPTIVE EQUIPMENT NEEDED: None Physical Therapy For: Evalulation/Treatment Occupational Therapy For: Evaluation/Treatment DISCHARGE MEDICATIONS: Home Meds Active Scripts Ferrous Sulfate (FERROUS SULFATE) 325 Mg Tablet, 1 TAB PO DAILY for anemia, #30 TAB Prov:CALLIE GONZÁLES MD 07/07/18 Cyanocobalamin/Fa/Pyridoxine (FOLBIC TABLET) 1 Each Tablet, 1 TAB PO DAILY for anemia, #100 TAB Prov:CALLIE GONZÁLES MD 07/07/18 [Darbepoetin Denny] 60 MCG/0.3 ML DISP.SYRIN No Conflict Check, 60 MCG SQ WEEKLY , #4 DIS.SYR Prov:CALLIE GONZÁLES MD 07/07/18 Reported Medications Furosemide (LASIX) 40 Mg Tablet, 40 MG PO DAILY for CONTROL BP, TAB 06/12/18 Atorvastatin Calcium (ATORVASTATIN CALCIUM) 20 Mg Tablet, 20 MG PO HS for FOR CHOLESTEROL, #30 TAB 0 Refills 06/12/18 Carvedilol (CARVEDILOL) 25 Mg Tablet, 12.5 MG PO BIDWMEALS for CARDIAC, TAB 06/12/18 [place]-3 Fatty Acids/Fish Oil (FISH OIL 1,000 MG CAPSULE) 1 Each Capsule, 1 EACH PO DAILY for SUPPLEMENT, CAP 06/12/18 Aspirin (ASPIRIN) 81 Mg Tab.chew, 81 MG PO DAILY for BLOOD THINNER, TAB.CHEW 06/12/18 Losartan Potassium (LOSARTAN POTASSIUM ) 25 Mg Tablet, 50 MG PO DAILY for CONTROL BP, TAB 08/17/16 Insulin Detemir (LEVEMIR) 100 Unit/1 Ml Vial, 30 UNIT SQ HS for CONTROL DIABETES , VIAL 08/17/16 Insulin Aspart (NOVOLOG) 100 Unit/1 Ml Vial, 10 UNIT SQ TIDAC for CONTROL DIABETES, VIAL 08/17/16 CALLIE GONZÁLES MD Jul 08, 2018 11:10
--- NOTE | 2018-07-08 11:25 | PDOC ---
PROGRESS NOTES Chief Complaint Chief Complaint symptomatic anemia weakness and debilty, fall risk CKD 4, Anemia with Hgb <7.0 refusing blood products- pt is a practicing Jehovas Witness Hyperkalemia Recent hip arthroplasty DM2 HLD History of Present Illness History of Present Illness trying to DC to SNU no need to check labs in short term, I have no further treatment options than what i am doing con current Vitals Vitals Vital Signs Date Time Temp Pulse Resp B/P (MAP) Pulse Ox O2 Delivery O2 Flow Rate FiO2 07/08/18 08:25 78 119/59 07/08/18 07:10 Room Air 07/08/18 07:00 18 96 07/08/18 03:00 98.1 98.1 07/07/18 07:00 2.0 Physical Exam General: Alert, Oriented X3, Cooperative, No acute distress Heart: Regular rate, No murmurs Lungs: Clear Abdomen: Normal bowel sounds, Soft Extremities: No clubbing, No edema Skin: No breakdown Labs LABS Laboratory Tests Test 07/07/18 11:58 07/07/18 16:57 07/07/18 20:55 07/08/18 07:33 Glucose (Fingerstick) 180 mg/dL (70-99) 164 mg/dL (70-99) 134 mg/dL (70-99) 119 mg/dL (70-99) Assessment and Plan Assessmemt and Plan Problems Medical Problems: (1) Acute anemia Status: Acute Comment Review of Relevant I have reviewed the following items raza (where applicable) has been applied. Labs Laboratory Tests Test 07/06/18 16:57 07/06/18 21:25 07/07/18 06:03 07/07/18 07:32 Glucose (Fingerstick) 207 mg/dL (70-99) 153 mg/dL (70-99) 127 mg/dL (70-99) White Blood Count 9.9 x10^3/uL (4.0-11.0) Red Blood Count 1.97 x10^6/uL (3.50-5.40) Hemoglobin 5.8 g/dL (12.0-15.5) Hematocrit 17.5 % (36.0-47.0) Mean Corpuscular Volume 89 fL (79-100) Mean Corpuscular Hemoglobin 30 pg (25-35) Mean Corpuscular Hemoglobin Concent 33 g/dL (31-37) Red Cell Distribution Width 14.9 % (11.5-14.5) Platelet Count 257 x10^3/uL (140-400) Sodium Level 141 mmol/L (136-145) Potassium Level 5.8 mmol/L (3.5-5.1) Chloride Level 107 mmol/L (98-107) Carbon Dioxide Level 23 mmol/L (21-32) Anion Gap 11 (6-14) Blood Urea Nitrogen 78 mg/dL (7-20) Creatinine 3.3 mg/dL (0.6-1.0) Estimated GFR (Non- 14 (>59) Estimated GFR (Cockcroft-Gault) 16.4 Glucose Level 141 mg/dL (70-99) Calcium Level 9.1 mg/dL (8.5-10.1) Phosphorus Level 3.7 mg/dL (2.6-4.7) Magnesium Level 2.3 mg/dL (1.8-2.4) EGFR 16 (>59) PTH (Intact) Specimen Description Comment (.) Parathyroid Hormone (Intact) 169 pg/mL (15-65) Calcium (PTH Intact) 9.0 mg/dL (8.7-10.3) Creatinine (PTH Intact) 3.15 mg/dL (0.57-1.00) Phosphorus (PTH Intact) 3.6 mg/dL (2.5-4.5) Test 07/07/18 11:58 07/07/18 16:57 07/07/18 20:55 07/08/18 07:33 Glucose (Fingerstick) 180 mg/dL (70-99) 164 mg/dL (70-99) 134 mg/dL (70-99) 119 mg/dL (70-99) Laboratory Tests Test 07/07/18 11:58 07/07/18 16:57 07/07/18 20:55 07/08/18 07:33 Glucose (Fingerstick) 180 mg/dL (70-99) 164 mg/dL (70-99) 134 mg/dL (70-99) 119 mg/dL (70-99) Medications Current Medications Ondansetron HCl (Zofran) 4 mg PRN Q8HRS PRN IV NAUSEA/VOMITING; Start 07/03/18 at 08:15; Stop 07/04/18 at 08:14; Status DC Acetaminophen/ Hydrocodone Bitart (Lortab 5/325) 1 tab 1X ONCE PO Last administered on 07/03/18 09:17; Start 07/03/18 at 09:15; Stop 07/03/18 at 09:16 ; Status DC Darbepoetin Denny (Aranesp) 60 mcg WEEKLYHS SQ Last administered on 07/03/18 20 :26; Start 07/03/18 at 21:00 Sodium Chloride 1,000 ml @ 75 mls/hr [id number] IV Last administered on 05:28; Start 07/03/18 at 14:00; Stop 07/05/18 at 17:36; Status DC Aspirin (Children'S Aspirin) 81 mg DAILY PO Last administered on 07/08/18 08: 24; Start 07/04/18 at 09:00 Atorvastatin Calcium (Lipitor) 20 mg HS PO Last administered on 07/07/18 21:14 ; Start 07/03/18 at 21:00 Losartan Potassium (Cozaar) 50 mg DAILY PO Last administered on 07/08/18 08:25 ; Start 07/04/18 at 09:00 Carvedilol (Coreg) 12.5 mg BIDWMEALS PO Last administered on 07/08/18 08:25; Start 07/03/18 at 17:00 Insulin Human Lispro (HumaLOG) 10 units TIDWMEALS SQ Last administered on 08:28; Start 07/03/18 at 17:00 Insulin Glargine (Lantus) 30 units QHS SQ Last administered on 07/07/18 21:21 ; Start 07/03/18 at 21:00 Insulin Human Lispro (HumaLOG) 0-7 UNITS TIDWMEALS SQ Last administered on 07/07 17:16; Start 07/03/18 at 17:00 Dextrose (Dextrose 50%-Water Syringe) 12.5 gm PRN Q15MIN PRN IV SEE COMMENTS; Start 07/03/18 at 16:45 Oxycodone/ Acetaminophen (Percocet 5/325) 1 tab PRN Q4HRS PRN PO PAIN Last administered on 07/07/18 19:13; Start 07/03/18 at 18:00 Calcium Carbonate/ Glycine (Tums) 500 mg PRN AFTMEALHC PRN PO INDIGESTION Last administered on 07/03/18at 20:46; Start 07/03/18 at 20:30 Insulin Glargine (Lantus) 15 units 1X ONCE SQ Last administered on 07/04/18at 22:07; Start 07/04/18 at 22:00; Stop 07/04/18 at 22:01; Status DC Vitamin B Complex (Folbic Tablet) 1 tab DAILY PO Last administered on at 08:24; Start 07/07/18 at 11:00 Cyanocobalamin (Vitamin B-12) 1,000 mcg 1X ONCE IM Last administered on at 11:59; Start 07/07/18 at 11:00; Stop 07/07/18 at 11:01; Status DC Sodium Polystyrene Sulfonate (Kayexalate) 15 gm 1X ONCE PO Last administered on 07/07/18at 11:58; Start 07/07/18 at 11:30; Stop 07/07/18 at 11:31; Status DC Active Scripts Active Ferrous Sulfate 325 Mg Tablet 1 Tab PO DAILY Folbic Tablet (Cyanocobalamin/Fa/Pyridoxine) 1 Each Tablet 1 Tab PO DAILY [Darbepoetin Denny In Polysorbat] 60 MCG/0.3 ML Disp.syrin 60 Mcg SQ WEEKLY Reported Lasix (Furosemide) 40 Mg Tablet 40 Mg PO DAILY Atorvastatin Calcium 20 Mg Tablet 20 Mg PO HS Carvedilol 25 Mg Tablet 12.5 Mg PO BIDWMEALS Fish Oil 1,000 Mg Capsule ([place]-3 Fatty Acids/Fish Oil) 1 Each Capsule 1 Each PO DAILY Aspirin 81 Mg Tab.chew 81 Mg PO DAILY Losartan Potassium (Losartan Potassium) 25 Mg Tablet 50 Mg PO DAILY Levemir (Insulin Detemir) 100 Unit/1 Ml Vial 30 Unit SQ HS Novolog (Insulin Aspart) 100 Unit/1 Ml Vial 10 Unit SQ TIDAC Vitals/I & O Vital Sign - Last 24 Hours 07/07/18 07/07/18 07/07/18 07/07/18 15:00 17:14 19:00 19:13 Temp 98.2 98.9 98.2 98.9 Pulse 72 72 76 Resp 16 16 16 B/P (MAP) 104/49 (67) 104/49 122/66 (84) Pulse Ox 98 98 O2 Delivery Room Air Room Air Room Air 07/07/18 07/07/18 07/07/18 07/08/18 20:13 20:15 23:00 03:00 Temp 98.1 98.1 98.1 98.1 Pulse 72 63 Resp 16 16 16 B/P (MAP) 111/61 (78) 110/42 (64) Pulse Ox 98 96 O2 Delivery Room Air Room Air Room Air Room Air 07/08/18 07/08/18 07/08/18 07/08/18 07:00 07:10 08:25 08:25 Pulse 78 59 78 Resp 18 B/P (MAP) 119/59 (79) 119/59 119/59 Pulse Ox 96 O2 Delivery Room Air Room Air Intake and Output 07/07/18 07/07/18 07/08/18 15:00 23:00 07:00 Intake Total 120 ml 120 ml Output Total 400 ml Balance -400 ml 120 ml 120 ml CALLIE GONZÁLES MD Jul 08, 2018 11:25
[2018-07-08] MEDS: ATORVASTATIN CALCIUM 20 MG TABLET PO SCH (20:41)
[2018-07-08] MEDS: oxyCODONE/APAP 5/325 1 TAB TABLET PO PRN (20:41)
[2018-07-08] MEDS: INSULIN GLARGINE 300 UNITS/3 ML INSULN.PEN. SQ SCH (21:01)
[2018-07-09 03:00] VITALS: BP 142/63
[2018-07-09 07:00] VITALS: BP 133/66
[2018-07-09] MEDS: INSULIN LISPRO 300 UNITS/3 ML INSULN.PEN. SQ SCH ×6 (08:00→17:20)
[2018-07-09] MEDS: oxyCODONE/APAP 5/325 1 TAB TABLET PO PRN ×2 (08:28→20:22)
[2018-07-09] MEDS: ASPIRIN CHEWABLE 81 MG TABLET. PO SCH (08:29)
[2018-07-09] MEDS: LOSARTAN POTASSIUM 50 MG TABLET. PO SCH (08:29)
[2018-07-09] MEDS: VITAMIN B12,B9,B6 COMPLEX 1 TABLET. PO SCH (08:29)
[2018-07-09] MEDS: CARVEDILOL 12.5 MG TABLET. PO SCH ×2 (08:29→17:19)
--- NOTE | 2018-07-09 09:12 | PDOC ---
PROGRESS NOTES Chief Complaint Chief Complaint symptomatic anemia weakness and debilty, fall risk CKD 4, Anemia with Hgb <7.0 refusing blood products- pt is a practicing Jehovas Witness Hyperkalemia Recent hip arthroplasty DM2 HLD History of Present Illness History of Present Illness may be able to DC home with home health in the AM if str continues to improve had waited for SNU placement no need to check labs in short term, I have no further treatment options than what i am doing con current Vitals Vitals Vital Signs Date Time Temp Pulse Resp B/P (MAP) Pulse Ox O2 Delivery O2 Flow Rate FiO2 07/09/18 08:29 67 133/66 07/09/18 08:28 Room Air 07/09/18 07:00 97.9 18 98 97.9 Physical Exam General: Alert, Oriented X3, Cooperative, No acute distress Heart: Regular rate, No murmurs Lungs: Clear Abdomen: Normal bowel sounds, Soft Extremities: No clubbing, No edema Skin: No breakdown Labs LABS Laboratory Tests Test 07/08/18 11:58 07/08/18 16:50 07/08/18 20:50 Glucose (Fingerstick) 123 mg/dL (70-99) 132 mg/dL (70-99) 134 mg/dL (70-99) Assessment and Plan Assessmemt and Plan Problems Medical Problems: (1) Acute anemia Status: Acute Comment Review of Relevant I have reviewed the following items raza (where applicable) has been applied. Labs Laboratory Tests Test 07/07/18 11:58 07/07/18 16:57 07/07/18 20:55 07/08/18 07:33 Glucose (Fingerstick) 180 mg/dL (70-99) 164 mg/dL (70-99) 134 mg/dL (70-99) 119 mg/dL (70-99) Test 07/08/18 11:58 07/08/18 16:50 07/08/18 20:50 Glucose (Fingerstick) 123 mg/dL (70-99) 132 mg/dL (70-99) 134 mg/dL (70-99) Laboratory Tests Test 07/08/18 11:58 07/08/18 16:50 07/08/18 20:50 Glucose (Fingerstick) 123 mg/dL (70-99) 132 mg/dL (70-99) 134 mg/dL (70-99) Medications Current Medications Ondansetron HCl (Zofran) 4 mg PRN Q8HRS PRN IV NAUSEA/VOMITING; Start 07/03/18 at 08:15; Stop 07/04/18 at 08:14; Status DC Acetaminophen/ Hydrocodone Bitart (Lortab 5/325) 1 tab 1X ONCE PO Last administered on 07/03/18 09:17; Start 07/03/18 at 09:15; Stop 07/03/18 at 09:16 ; Status DC Darbepoetin Denny (Aranesp) 60 mcg WEEKLYHS SQ Last administered on 07/03/18 20 :26; Start 07/03/18 at 21:00 Sodium Chloride 1,000 ml @ 75 mls/hr [id number] IV Last administered on 05:28; Start 07/03/18 at 14:00; Stop 07/05/18 at 17:36; Status DC Aspirin (Children'S Aspirin) 81 mg DAILY PO Last administered on 07/09/18 08: 29; Start 07/04/18 at 09:00 Atorvastatin Calcium (Lipitor) 20 mg HS PO Last administered on 07/08/18 20:41 ; Start 07/03/18 at 21:00 Losartan Potassium (Cozaar) 50 mg DAILY PO Last administered on 07/09/18 08:29 ; Start 07/04/18 at 09:00 Carvedilol (Coreg) 12.5 mg BIDWMEALS PO Last administered on 07/09/18 08:29; Start 07/03/18 at 17:00 Insulin Human Lispro (HumaLOG) 10 units TIDWMEALS SQ Last administered on 08:32; Start 07/03/18 at 17:00 Insulin Glargine (Lantus) 30 units QHS SQ Last administered on 07/08/18 21:01 ; Start 07/03/18 at 21:00 Insulin Human Lispro (HumaLOG) 0-7 UNITS TIDWMEALS SQ Last administered on 07/07 17:16; Start 07/03/18 at 17:00 Dextrose (Dextrose 50%-Water Syringe) 12.5 gm PRN Q15MIN PRN IV SEE COMMENTS; Start 07/03/18 at 16:45 Oxycodone/ Acetaminophen (Percocet 5/325) 1 tab PRN Q4HRS PRN PO PAIN Last administered on 07/09/18 08:28; Start 07/03/18 at 18:00 Calcium Carbonate/ Glycine (Tums) 500 mg PRN AFTMEALHC PRN PO INDIGESTION Last administered on 07/03/18at 20:46; Start 07/03/18 at 20:30 Insulin Glargine (Lantus) 15 units 1X ONCE SQ Last administered on 07/04/18at 22:07; Start 07/04/18 at 22:00; Stop 07/04/18 at 22:01; Status DC Vitamin B Complex (Folbic Tablet) 1 tab DAILY PO Last administered on at 08:29; Start 07/07/18 at 11:00 Cyanocobalamin (Vitamin B-12) 1,000 mcg 1X ONCE IM Last administered on at 11:59; Start 07/07/18 at 11:00; Stop 07/07/18 at 11:01; Status DC Sodium Polystyrene Sulfonate (Kayexalate) 15 gm 1X ONCE PO Last administered on 07/07/18at 11:58; Start 07/07/18 at 11:30; Stop 07/07/18 at 11:31; Status DC Active Scripts Active Ferrous Sulfate 325 Mg Tablet 1 Tab PO DAILY Folbic Tablet (Cyanocobalamin/Fa/Pyridoxine) 1 Each Tablet 1 Tab PO DAILY [Darbepoetin Denny In Polysorbat] 60 MCG/0.3 ML Disp.syrin 60 Mcg SQ WEEKLY Reported Lasix (Furosemide) 40 Mg Tablet 40 Mg PO DAILY Atorvastatin Calcium 20 Mg Tablet 20 Mg PO HS Carvedilol 25 Mg Tablet 12.5 Mg PO BIDWMEALS Fish Oil 1,000 Mg Capsule ([place]-3 Fatty Acids/Fish Oil) 1 Each Capsule 1 Each PO DAILY Aspirin 81 Mg Tab.chew 81 Mg PO DAILY Losartan Potassium (Losartan Potassium) 25 Mg Tablet 50 Mg PO DAILY Levemir (Insulin Detemir) 100 Unit/1 Ml Vial 30 Unit SQ HS Novolog (Insulin Aspart) 100 Unit/1 Ml Vial 10 Unit SQ TIDAC Vitals/I & O Vital Sign - Last 24 Hours 07/08/18 07/08/18 07/08/1807/08/19 11:00 15:00 17:14 19:00 Temp 98.4 98.7 98.9 98.4 98.7 98.9 Pulse 85 79 79 59 Resp 18 18 20 B/P (MAP) 125/58 (80) 117/62 (80) 117/62 114/47 (69) Pulse Ox 96 94 99 O2 Delivery Room Air Room Air 07/08/18 07/08/18 07/08/18 07/09/18 20:00 20:12 23:00 03:00 Temp 98.9 98.0 98.5 98.9 98.0 98.5 Pulse 59 69 64 Resp 20 18 18 B/P (MAP) 114/47 (69) 111/50 (70) 142/63 (89) Pulse Ox 99 99 98 O2 Delivery Room Air 07/09/18 07/09/18 07/09/18 07/09/18 07:00 07:45 08:28 08:29 Temp 97.9 97.9 Pulse 67 67 Resp 18 B/P (MAP) 133/66 (88) 133/66 Pulse Ox 98 O2 Delivery Room Air Room Air Room Air 07/09/18 08:29 Pulse 67 B/P (MAP) 133/66 Intake and Output 07/08/18 07/08/18 07/09/18 14:59 22:59 06:59 Intake Total 360 ml 320 ml Output Total 480 ml 500 ml Balance -480 ml 360 ml -180 ml CALLIE GONZÁLES MD Jul 09, 2018 09:12
[2018-07-09 11:00] VITALS: BP 129/67
[2018-07-09 15:00] VITALS: BP 121/54
[2018-07-09 19:00] VITALS: BP 129/50
[2018-07-09] MEDS: ATORVASTATIN CALCIUM 20 MG TABLET PO SCH (20:22)
[2018-07-09] MEDS: INSULIN GLARGINE 300 UNITS/3 ML INSULN.PEN. SQ SCH (20:31)
[2018-07-09 23:00] VITALS: BP 107/46
[2018-07-10 03:00] VITALS: BP 115/48
[2018-07-10 07:00] VITALS: BP 123/57
[2018-07-10] MEDS: INSULIN LISPRO 300 UNITS/3 ML INSULN.PEN. SQ SCH ×4 (08:00→12:00)
--- NOTE | 2018-07-10 08:24 | PDOC ---
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 She has made it clear she does not wish for blood products, nor does she wish to initiate dialysis if necessary for renal replacement. Had waited for SNU placement for her progressive weakness after her hip surgery Feeling more weak today. K 5.3. BUN 81. Hb of 5.8. Plan: Palliative care consultation for [facility] goals of care SNF placement for acute rehabilitation Vitals Vitals Vital Signs Date Time Temp Pulse Resp B/P (MAP) Pulse Ox O2 Delivery O2 Flow Rate FiO2 07/10/18 07:00 97.7 70 18 123/57 (79) 98 Room Air 97.7 Physical Exam General: Alert, Oriented X3, Cooperative, No acute distress Heart: Regular rate, No murmurs Lungs: Clear Abdomen: Normal bowel sounds, Soft Extremities: No clubbing, No edema Skin: No breakdown Labs LABS Laboratory Tests Test 07/09/18 11:13 07/09/18 16:25 07/09/18 20:23 07/10/18 07:15 Glucose (Fingerstick) 99 mg/dL (70-99) 79 mg/dL (70-99) 95 mg/dL (70-99) 71 mg/dL (70-99) Assessment and Plan Assessmemt and Plan Problems Medical Problems: (1) Acute anemia Status: Acute Comment Review of Relevant I have reviewed the following items raza (where applicable) has been applied. Labs Laboratory Tests Test 07/08/18 11:58 07/08/18 16:50 07/08/18 20:50 07/09/18 07:11 Glucose (Fingerstick) 123 mg/dL (70-99) 132 mg/dL (70-99) 134 mg/dL (70-99) 70 mg/dL (70-99) Test 07/09/18 11:13 07/09/18 16:25 07/09/18 20:23 07/10/18 07:15 Glucose (Fingerstick) 99 mg/dL (70-99) 79 mg/dL (70-99) 95 mg/dL (70-99) 71 mg/dL (70-99) Laboratory Tests Test 07/09/18 11:13 07/09/18 16:25 07/09/18 20:23 07/10/18 07:15 Glucose (Fingerstick) 99 mg/dL (70-99) 79 mg/dL (70-99) 95 mg/dL (70-99) 71 mg/dL (70-99) Medications Current Medications Ondansetron HCl (Zofran) 4 mg PRN Q8HRS PRN IV NAUSEA/VOMITING; Start 07/03/18 at 08:15; Stop 07/04/18 at 08:14; Status DC Acetaminophen/ Hydrocodone Bitart (Lortab 5/325) 1 tab 1X ONCE PO Last administered on 07/03/18 09:17; Start 07/03/18 at 09:15; Stop 07/03/18 at 09:16 ; Status DC Darbepoetin Denny (Aranesp) 60 mcg WEEKLYHS SQ Last administered on 07/03/18 20 :26; Start 07/03/18 at 21:00 Sodium Chloride 1,000 ml @ 75 mls/hr [id number] IV Last administered on 05:28; Start 07/03/18 at 14:00; Stop 07/05/18 at 17:36; Status DC Aspirin (Children'S Aspirin) 81 mg DAILY PO Last administered on 07/09/18 08: 29; Start 07/04/18 at 09:00 Atorvastatin Calcium (Lipitor) 20 mg HS PO Last administered on 07/09/18 20:22 ; Start 07/03/18 at 21:00 Losartan Potassium (Cozaar) 50 mg DAILY PO Last administered on 07/09/18 08:29 ; Start 07/04/18 at 09:00 Carvedilol (Coreg) 12.5 mg BIDWMEALS PO Last administered on 07/09/18 17:19; Start 07/03/18 at 17:00 Insulin Human Lispro (HumaLOG) 10 units TIDWMEALS SQ Last administered on 17:20; Start 07/03/18 at 17:00 Insulin Glargine (Lantus) 30 units QHS SQ Last administered on 07/09/18 20:31 ; Start 07/03/18 at 21:00 Insulin Human Lispro (HumaLOG) 0-7 UNITS TIDWMEALS SQ Last administered on 07/07 17:16; Start 07/03/18 at 17:00 Dextrose (Dextrose 50%-Water Syringe) 12.5 gm PRN Q15MIN PRN IV SEE COMMENTS; Start 07/03/18 at 16:45 Oxycodone/ Acetaminophen (Percocet 5/325) 1 tab PRN Q4HRS PRN PO PAIN Last administered on 07/09/18 20:22; Start 07/03/18 at 18:00 Calcium Carbonate/ Glycine (Tums) 500 mg PRN AFTMEALHC PRN PO INDIGESTION Last administered on 07/03/18at 20:46; Start 07/03/18 at 20:30 Insulin Glargine (Lantus) 15 units 1X ONCE SQ Last administered on 07/04/18 22:07; Start 07/04/18 at 22:00; Stop 07/04/18 at 22:01; Status DC Vitamin B Complex (Folbic Tablet) 1 tab DAILY PO Last administered on 08:29; Start 07/07/18 at 11:00 Cyanocobalamin (Vitamin B-12) 1,000 mcg 1X ONCE IM Last administered on 11:59; Start 07/07/18 at 11:00; Stop 07/07/18 at 11:01; Status DC Sodium Polystyrene Sulfonate (Kayexalate) 15 gm 1X ONCE PO Last administered on 07/07/18 11:58; Start 07/07/18 at 11:30; Stop 07/07/18 at 11:31; Status DC Active Scripts Active Ferrous Sulfate 325 Mg Tablet 1 Tab PO DAILY Folbic Tablet (Cyanocobalamin/Fa/Pyridoxine) 1 Each Tablet 1 Tab PO DAILY [Darbepoetin Denny In Polysorbat] 60 MCG/0.3 ML Disp.syrin 60 Mcg SQ WEEKLY Reported Lasix (Furosemide) 40 Mg Tablet 40 Mg PO DAILY Atorvastatin Calcium 20 Mg Tablet 20 Mg PO HS Carvedilol 25 Mg Tablet 12.5 Mg PO BIDWMEALS Fish Oil 1,000 Mg Capsule ([place]-3 Fatty Acids/Fish Oil) 1 Each Capsule 1 Each PO DAILY Aspirin 81 Mg Tab.chew 81 Mg PO DAILY Losartan Potassium (Losartan Potassium) 25 Mg Tablet 50 Mg PO DAILY Levemir (Insulin Detemir) 100 Unit/1 Ml Vial 30 Unit SQ HS Novolog (Insulin Aspart) 100 Unit/1 Ml Vial 10 Unit SQ TIDAC Vitals/I & O Vital Sign - Last 24 Hours 07/09/18 07/09/18 07/09/18 07/09/18 08:28 08:29 08:29 11:00 Temp 98.1 98.1 Pulse 67 67 60 Resp 18 B/P (MAP) 133/66 133/66 129/67 (87) Pulse Ox 99 O2 Delivery Room Air Room Air 07/09/18 07/09/18 07/09/18 07/09/18 15:00 17:19 19:00 20:00 Temp 98.2 97.5 98.2 97.5 Pulse 62 62 60 Resp 16 18 B/P (MAP) 121/54 (76) 121/54 129/50 (76) Pulse Ox 98 98 O2 Delivery Room Air Room Air Room Air 07/09/18 07/10/18 07/10/18 23:00 03:00 07:00 Temp 97.8 97.7 97.7 97.8 97.7 97.7 Pulse 59 65 70 Resp 18 18 18 B/P (MAP) 107/46 (66) 115/48 (70) 123/57 (79) Pulse Ox 97 97 98 O2 Delivery Room Air Room Air Room Air Intake and Output 07/09/18 07/09/18 07/10/18 15:00 23:00 07:00 Intake Total 240 ml 120 ml 200 ml Output Total 700 ml 300 ml Balance 240 ml -580 ml -100 ml NAYANA AVALOS MD Jul 10, 2018 08:24
[2018-07-10] MEDS: VITAMIN B12,B9,B6 COMPLEX 1 TABLET. PO SCH (08:25)
[2018-07-10] MEDS: ASPIRIN CHEWABLE 81 MG TABLET. PO SCH (08:26)
[2018-07-10] MEDS: CARVEDILOL 12.5 MG TABLET. PO SCH (08:27)
[2018-07-10] MEDS: LOSARTAN POTASSIUM 50 MG TABLET. PO SCH (08:30)
--- NOTE | 2018-07-10 09:25 | NUR ---
SW following. Discussed with RN, [facility] can go [facility], pending insurance auth. SW contacted [facility] this morning, they had still not heard from insurance. BIMAL will continue to follow.
[2018-07-10 09:47] LABS: BASO % 0 % (0-3); EOS # 0.5 x10^3/uL (0.0-0.7); EOS % 4 % (0-3); LYMPH % 17 % (24-48); MEAN CORPUSCULAR HEMOGLOBIN 29 pg (25-35); MEAN CORPUSCULAR HGB CONC 32 g/dL (31-37); MEAN CORPUSCULAR VOLUME 91 fL (79-100); MONO # 0.6 x10^3/uL (0.0-1.1); MONO % 5 % (0-9); NEUT # 8.5 x10^3uL (1.8-7.7); NEUT % 74 % (31-73); PLATELET COUNT 298 x10^3/uL (140-400); RED BLOOD COUNT 2.01 x10^6/uL (3.50-5.40); RED CELL DISTRIBUTION WIDTH 15.6 % (11.5-14.5); WHITE BLOOD COUNT 11.5 x10^3/uL (4.0-11.0)
[2018-07-10 09:51] LABS: HEMOGLOBIN 5.8 g/dL (12.0-15.5)
[2018-07-10 09:52] LABS: HEMATOCRIT 18.2 % (36.0-47.0)
[2018-07-10 10:01] LABS: ALBUMIN 2.2 g/dL (3.4-5.0); CREATININE 3.4 mg/dL (0.6-1.0); GFR 15.8; PHOSPHORUS 4.6 mg/dL (2.6-4.7); POTASSIUM 5.3 mmol/L (3.5-5.1)
[2018-07-10 11:00] VITALS: BP 120/46
[2018-07-10] MEDS: oxyCODONE/APAP 5/325 1 TAB TABLET PO PRN (12:55)
[2018-07-10] MEDS ORDERED: EPOE10005 IJ (13:16)
--- NOTE | 2018-07-10 13:17 | SNU/HH DC ---
DISCHARGE ORDERS DISCHARGE INFORMATION: DISCHARGE DATE: Jul 08, 2018 FINAL DIAGNOSIS Problems Medical Problems: (1) Acute anemia Status: Acute CONDITION ON DISCHARGE: Stable CODE STATUS: Code Status: Full DETENTION: SNF STAY <30 DAYS: Yes POST DISCHARGE ORDERS: ACTIVITY ORDERS: Activity as tolerated WEIGHT BEARING STATUS: As tolerated BATHING ORDERS: Shower-keep dressing dry DIET AFTER DISCHARGE: Renal WOUND/INCISION CARE: Other, see below (Wound care per surgeon) FOLLOW-UP: PHYSICIAN FOLLOW-UP: renal (Dr. Fraser - [facility] 07/12/18) and primary care at , next avail TREATMENT/EQUIPMENT ORDERS: ADAPTIVE EQUIPMENT NEEDED: None Physical Therapy For: Evalulation/Treatment Occupational Therapy For: Evaluation/Treatment DISCHARGE MEDICATIONS: Home Meds Active Scripts Epoetin Denny (PROCRIT) 10,000 Unit/1 Ml Vial, 43710 UNIT IJ WEEKLY for Anemia of CKD for 42 Days, #6 EACH Prov:NAYANA AVALOS MD 07/10/18 Ferrous Sulfate (FERROUS SULFATE) 325 Mg Tablet, 1 TAB PO DAILY for anemia, #30 TAB Prov:CALLIE GONZÁLES MD 07/07/18 Cyanocobalamin/Fa/Pyridoxine (FOLBIC TABLET) 1 Each Tablet, 1 TAB PO DAILY for anemia, #100 TAB Prov:CALLIE GONZÁLES MD 07/07/18 Reported Medications Furosemide (LASIX) 40 Mg Tablet, 40 MG PO DAILY for CONTROL BP, TAB 06/12/18 Atorvastatin Calcium (ATORVASTATIN CALCIUM) 20 Mg Tablet, 20 MG PO HS for FOR CHOLESTEROL, #30 TAB 0 Refills 06/12/18 Carvedilol (CARVEDILOL) 25 Mg Tablet, 12.5 MG PO BIDWMEALS for CARDIAC, TAB 06/12/18 [place]-3 Fatty Acids/Fish Oil (FISH OIL 1,000 MG CAPSULE) 1 Each Capsule, 1 EACH PO DAILY for SUPPLEMENT, CAP 06/12/18 Aspirin (ASPIRIN) 81 Mg Tab.chew, 81 MG PO DAILY for BLOOD THINNER, TAB.CHEW 06/12/18 Losartan Potassium (LOSARTAN POTASSIUM ) 25 Mg Tablet, 50 MG PO DAILY for CONTROL BP, TAB 08/17/16 Insulin Detemir (LEVEMIR) 100 Unit/1 Ml Vial, 30 UNIT SQ HS for CONTROL DIABETES , VIAL 08/17/16 Insulin Aspart (NOVOLOG) 100 Unit/1 Ml Vial, 10 UNIT SQ TIDAC for CONTROL DIABETES, VIAL 08/17/16 NAYANA AVALOS MD Jul 10, 2018 13:17
--- NOTE | 2018-07-10 13:27 | PDOC3 ---
Discharge Summary Visit Information Date of Admission: Jul 03, 2018 Date of Discharge: Jul 10, 2018 Admitting Diagnosis: Acute anemia Final Diagnosis Problems Medical Problems: (1) Acute anemia Status: Acute Brief Hospital Course Allergies Allergies Coded Allergies Type Severity Reaction Last Updated Verified lisinopril Allergy Intermediate 06/26/18 Yes Vital Signs Vital Signs Date Time Temp Pulse Resp B/P (MAP) Pulse Ox O2 Delivery O2 Flow Rate FiO2 07/10/18 12:55 Room Air 07/10/18 11:00 97.7 69 20 120/46 (70) 97 97.7 Lab Results Laboratory Tests Test 07/08/18 16:50 07/08/18 20:50 07/09/18 07:11 07/09/18 11:13 Glucose (Fingerstick) 132 mg/dL (70-99) 134 mg/dL (70-99) 70 mg/dL (70-99) 99 mg/dL (70-99) Test 07/09/18 16:25 07/09/18 20:23 07/10/18 07:15 07/10/18 09:40 Glucose (Fingerstick) 79 mg/dL (70-99) 95 mg/dL (70-99) 71 mg/dL (70-99) White Blood Count 11.5 x10^3/uL (4.0-11.0) Red Blood Count 2.01 x10^6/uL (3.50-5.40) Hemoglobin 5.8 g/dL (12.0-15.5) Hematocrit 18.2 % (36.0-47.0) Mean Corpuscular Volume 91 fL (79-100) Mean Corpuscular Hemoglobin 29 pg (25-35) Mean Corpuscular Hemoglobin Concent 32 g/dL (31-37) Red Cell Distribution Width 15.6 % (11.5-14.5) Platelet Count 298 x10^3/uL (140-400) Neutrophils (%) (Auto) 74 % (31-73) Lymphocytes (%) (Auto) 17 % (24-48) Monocytes (%) (Auto) 5 % (0-9) Eosinophils (%) (Auto) 4 % (0-3) Basophils (%) (Auto) 0 % (0-3) Neutrophils # (Auto) 8.5 x10^3uL (1.8-7.7) Lymphocytes # (Auto) 2.0 x10^3/uL (1.0-4.8) Monocytes # (Auto) 0.6 x10^3/uL (0.0-1.1) Eosinophils # (Auto) 0.5 x10^3/uL (0.0-0.7) Basophils # (Auto) 0.0 x10^3/uL (0.0-0.2) Sodium Level 137 mmol/L (136-145) Potassium Level 5.3 mmol/L (3.5-5.1) Chloride Level 104 mmol/L (98-107) Carbon Dioxide Level 22 mmol/L (21-32) Anion Gap 11 (6-14) Blood Urea Nitrogen 81 mg/dL (7-20) Creatinine 3.4 mg/dL (0.6-1.0) Estimated GFR (Cockcroft-Gault) 15.8 Glucose Level 98 mg/dL (70-99) Calcium Level 9.0 mg/dL (8.5-10.1) Phosphorus Level 4.6 mg/dL (2.6-4.7) Albumin 2.2 g/dL (3.4-5.0) Test 07/10/18 10:50 Glucose (Fingerstick) 80 mg/dL (70-99) Laboratory Tests Test 07/09/18 16:25 07/09/18 20:23 07/10/18 07:15 07/10/18 09:40 Glucose (Fingerstick) 79 mg/dL (70-99) 95 mg/dL (70-99) 71 mg/dL (70-99) White Blood Count 11.5 x10^3/uL (4.0-11.0) Red Blood Count 2.01 x10^6/uL (3.50-5.40) Hemoglobin 5.8 g/dL (12.0-15.5) Hematocrit 18.2 % (36.0-47.0) Mean Corpuscular Volume 91 fL (79-100) Mean Corpuscular Hemoglobin 29 pg (25-35) Mean Corpuscular Hemoglobin Concent 32 g/dL (31-37) Red Cell Distribution Width 15.6 % (11.5-14.5) Platelet Count 298 x10^3/uL (140-400) Neutrophils (%) (Auto) 74 % (31-73) Lymphocytes (%) (Auto) 17 % (24-48) Monocytes (%) (Auto) 5 % (0-9) Eosinophils (%) (Auto) 4 % (0-3) Basophils (%) (Auto) 0 % (0-3) Neutrophils # (Auto) 8.5 x10^3uL (1.8-7.7) Lymphocytes # (Auto) 2.0 x10^3/uL (1.0-4.8) Monocytes # (Auto) 0.6 x10^3/uL (0.0-1.1) Eosinophils # (Auto) 0.5 x10^3/uL (0.0-0.7) Basophils # (Auto) 0.0 x10^3/uL (0.0-0.2) Sodium Level 137 mmol/L (136-145) Potassium Level 5.3 mmol/L (3.5-5.1) Chloride Level 104 mmol/L (98-107) Carbon Dioxide Level 22 mmol/L (21-32) Anion Gap 11 (6-14) Blood Urea Nitrogen 81 mg/dL (7-20) Creatinine 3.4 mg/dL (0.6-1.0) Estimated GFR (Cockcroft-Gault) 15.8 Glucose Level 98 mg/dL (70-99) Calcium Level 9.0 mg/dL (8.5-10.1) Phosphorus Level 4.6 mg/dL (2.6-4.7) Albumin 2.2 g/dL (3.4-5.0) Test 07/10/18 10:50 Glucose (Fingerstick) 80 mg/dL (70-99) Brief Hospital Course Ms Bearden is a 77 yo F w/ PMHx CKD3/4, AVR (s/p porcine valve replacement), DM, HTN, DJD of left hip who was admitted for left total hip arthroplasty s/p procedure 06/26/18, she tolerated procedure well. Was recovering in SNF, presented with symptomatic anemia, weakness. She has made it clear she does not wish for blood products, nor does she wish to initiate dialysis if necessary for renal replacement. She does c/o constipation and urinary retention post-operatively. She did require straight cath this morning. She still has good residual renal function, has f/u at [facility] with Dr. Fraser. Actually has LUE AV fistula placed this past April for her CKD in anticipation of future renal replacement therapy. She otherwise has no complaints. Denies SOB, CP, palpitations. Feeling more weak today. K 5.3. BUN 81. Hb of 5.8. She was changed to procrit by nephrology Greater than 30 minutes spent on discharge. Symptomatic anemia Weakness and debility Fall risk CKD 4, Anemia with Hgb <5.8 refusing blood products - Pt is a practicing [employer] Hyperkalemia Recent hip arthroplasty DM2 HLD Plan: Palliative care consultation for fdc goals of care SNF placement for acute rehabilitation Discharge Information Condition at Discharge: Improved Follow Up: Weeks (2) Disposition/Orders: D/C to Another Facility ([facility]) Scheduled Aspirin (Aspirin) 81 Mg Tab.chew, 81 MG PO DAILY for BLOOD THINNER, (Reported) Entered as Reported by: GILBERTO FERGUSON on 06/12/181520 Last Action: Continued on 07/03/181641 by JONATAN KELLOGG Atorvastatin Calcium (Atorvastatin Calcium) 20 Mg Tablet, 20 MG PO HS for FOR CHOLESTEROL, #30 Ref 0 (Reported) Entered as Reported by: GILBERTO FERGUSON on 06/12/181520 Last Action: Continued on 07/03/181641 by JONATAN KELLOGG Carvedilol (Carvedilol) 25 Mg Tablet, 12.5 MG PO BIDWMEALS for CARDIAC, ( Reported) Entered as Reported by: GILBERTO FERGUSON on 06/12/181520 Last Action: Converted on 07/03/181641 by JONATAN KELLOGG Cyanocobalamin/Fa/Pyridoxine (Folbic Tablet) 1 Each Tablet, 1 TAB PO DAILY for anemia, #100 Prescribed by: CALLIE GONZÁLES on 07/07/18 1106 Epoetin Denny (Procrit) 10,000 Unit/1 Ml Vial, 10,000 UNIT IJ WEEKLY for Anemia of CKD for 42 Days, #6 Prescribed by: NAYANA AVALOS MD on 07/10/18 1316 Ferrous Sulfate (Ferrous Sulfate) 325 Mg Tablet, 1 TAB PO DAILY for anemia, #30 Prescribed by: CALLIE GONZÁLES on 07/07/18 1106 Furosemide (Lasix) 40 Mg Tablet, 40 MG PO DAILY for CONTROL BP, (Reported) Entered as Reported by: GILBERTO FERGUSON on 06/12/181520 Last Action: Reviewed on 07/03/181640 by JONATAN KELLOGG Insulin Aspart (Novolog) 100 Unit/1 Ml Vial, 10 UNIT SQ TIDAC for CONTROL DIABETES, (Reported) Entered as Reported by: CHRISTINA CHRISTIANSON on 08/17/16 1250 Last Action: Converted on 07/03/181641 by JONATAN KELLOGG Insulin Detemir (Levemir) 100 Unit/1 Ml Vial, 30 UNIT SQ HS for CONTROL DIABETES , (Reported) Entered as Reported by: CHRISTINA CHRISTIANSON on 08/17/16 1250 Last Action: Converted on 07/03/181641 by JONATAN KELLOGG Losartan Potassium (Losartan Potassium ) 25 Mg Tablet, 50 MG PO DAILY for CONTROL BP, (Reported) Entered as Reported by: CHRISTINA CHRISTIANSON on 08/17/16 1250 Last Action: Continued on 07/03/181641 by JONATAN KELLOGG [place]-3 Fatty Acids/Fish Oil (Fish Oil 1,000 Mg Capsule) 1 Each Capsule, 1 EACH PO DAILY for SUPPLEMENT, (Reported) Entered as Reported by: GILBERTO FERGUSON on 06/12/181520 Last Action: Reviewed on 07/03/181640 by NAYANA FROST MD Jul 10, 2018 13:27
--- NOTE | 2018-07-10 14:31 | PDOC ---
Renal-Progress Notes Subjective Notes Notes NO COMPLAINTS GIVEN History of Present Illness Hx of present illness STABLE Vitals Vitals Vital Signs Date Time Temp Pulse Resp B/P (MAP) Pulse Ox O2 Delivery O2 Flow Rate FiO2 07/10/18 12:55 Room Air 07/10/18 11:00 97.7 69 20 120/46 (70) 97 97.7 Weight Weight [ ] I.O. Intake and Output Intake and Output 07/10/18 07:00 Intake Total 560 ml Output Total 1000 ml Balance -440 ml Intake Oral 560 ml Output Urine Total 1000 ml # Voids 3 Labs Labs Laboratory Tests Test 07/09/18 16:25 07/09/18 20:23 07/10/18 07:15 07/10/18 09:40 Glucose (Fingerstick) 79 mg/dL (70-99) 95 mg/dL (70-99) 71 mg/dL (70-99) White Blood Count 11.5 x10^3/uL (4.0-11.0) Red Blood Count 2.01 x10^6/uL (3.50-5.40) Hemoglobin 5.8 g/dL (12.0-15.5) Hematocrit 18.2 % (36.0-47.0) Mean Corpuscular Volume 91 fL (79-100) Mean Corpuscular Hemoglobin 29 pg (25-35) Mean Corpuscular Hemoglobin Concent 32 g/dL (31-37) Red Cell Distribution Width 15.6 % (11.5-14.5) Platelet Count 298 x10^3/uL (140-400) Neutrophils (%) (Auto) 74 % (31-73) Lymphocytes (%) (Auto) 17 % (24-48) Monocytes (%) (Auto) 5 % (0-9) Eosinophils (%) (Auto) 4 % (0-3) Basophils (%) (Auto) 0 % (0-3) Neutrophils # (Auto) 8.5 x10^3uL (1.8-7.7) Lymphocytes # (Auto) 2.0 x10^3/uL (1.0-4.8) Monocytes # (Auto) 0.6 x10^3/uL (0.0-1.1) Eosinophils # (Auto) 0.5 x10^3/uL (0.0-0.7) Basophils # (Auto) 0.0 x10^3/uL (0.0-0.2) Sodium Level 137 mmol/L (136-145) Potassium Level 5.3 mmol/L (3.5-5.1) Chloride Level 104 mmol/L (98-107) Carbon Dioxide Level 22 mmol/L (21-32) Anion Gap 11 (6-14) Blood Urea Nitrogen 81 mg/dL (7-20) Creatinine 3.4 mg/dL (0.6-1.0) Estimated GFR (Cockcroft-Gault) 15.8 Glucose Level 98 mg/dL (70-99) Calcium Level 9.0 mg/dL (8.5-10.1) Phosphorus Level 4.6 mg/dL (2.6-4.7) Albumin 2.2 g/dL (3.4-5.0) Test 07/10/18 10:50 Glucose (Fingerstick) 80 mg/dL (70-99) Review of Systems Constitutional: yes: malaise, weakness, alert, oriented Ears/Nose/Throat: Yes: no symptom reported Eyes: Yes: no symptom reported Pulmonary: Yes dyspnea Cardiovascular: Yes no symptom reported Gastrointestional: Yes: no symptom reported Genitourinary: Yes: no symptom reported Musculoskeletal: Yes: no symptom reported Skin: Yes no symptom reported Psychiatric/Neurological: Yes: no symptom reported Endocrine: Yes: no symptom reported Hematologic/Lymphatic: Yes: no symptom reported Physical Exam General Appearance: no apparent distress Skin: warm, dry, other (PALE) Respiratory: bilateral CTA Heart: S1S2, RRR Abdomen: soft, bowel sounds present Genitourinary: bladder flat Extremities: pulses present Neurology: alert, oriented Musculoskeletal: Osteoarthritis Assessment Assessment IMP HYPERKALEMIA-BETTER DYSPNEA SEVERE ANEMIA OF ADVANCED CKD-WORSE WITH HGB OF 5.7 DM II HTN HYPERKALEMIA STAGE 4 CKD-CR NO DIFFERENT BUT NOW RECURRENT HYPERKALEMIA DECONDITIONING DUE TO ANEMIA S/P LEFT RECENT HIP REPLACEMENT PLAN RECENTLY RECEIVED IV IRON STARTED ARANESP PP WONT TAKE HER DUE TO LOW HGB BUT ALSO DONT WANT TO GIVE ARANESP DUE TO EXPENSE EXPLAINED TO HER THE DANGERS OF SUCH LOW HGB WITH DYSPNEA THIS AM, HYPERKALEMIA AND LOW HGB BELIEVE ITS BEST FOR HER TO START HD. HER AVF IS NOT MATURE AND SO SHE WILL NEED A TUNNELED HD CATHETER TO START DIALYSIS EXPLAINED TO HER THAT I WILL HAVE SW SET UP HER OP HD WITH THE [facility] UPON D/C AND THAT I WOULD CALL THEM TO UPDATED SHE DOESN'T KNOW WHAT TO DO AND STATED THAT SHE WILL THINK ABOUT IT CHECK PO4 AND PTH-MAY NEED BINDERS AND VIT D ANALOG ABOVE, SHE DOES NOT WANT TO START DIALYSIS, WILL ONLY TRUST [facility] PLAN IS TO GIVE HER KAYEXALATE TODAY AND D/C HER WITH OP ARANESP SET UP HAVE ASKED HER TO CONTACT [facility] IMMEDIATELY TO SET UP F/U D/W ATTENDING I SPOKE WITH DR OWEN AT [facility] AND UPDATED HIM ON MS KRISTEN STATUS SHE HAS AN APPT WITH HIM THIS TUESDAY PT TO BE DISCHARGED TODAY FROM [facility] D/W ATTENDING IZZY MCLEOD MD Jul 10, 2018 14:31
[2018-07-10] MEDS ORDERED: OXYC1TAB15 PO (14:59)
--- NOTE | 2018-07-10 15:08 | NUR ---
BIMAL following. Pt will be transported around 1500 to [facility]. Pt choice and rights forms signed and placed on chart. BIMAL left voicemail for pt's daughter, Flor. RN notified.
--- NOTE | 2018-07-10 16:14 | NUR ---
Pt was discharged to [facility] at 1600 today in stable condition with all personal belongings. Report called into [facility], packet given to facility transportation personnel, all pertinent information faxed to [facility]. Pt was escorted via WC and accompanied by transportation and family to the main exit where she was driven by [facility]aa van to [facility].
== END 2018-07-10 16:00 | DRG 682 ==
LOC: ER 07:04 → 4 NORTH 08:02
PROVIDERS: ADMIT Internal Medicine; ATTEND Internal Medicine
DX: N17.0 Acute kidney failure with tubular necrosis (principal); E43 Unspecified severe protein-calorie malnutrition; N18.4 Chronic kidney disease, stage 4 (severe); E11.22 Type 2 diabetes mellitus with diabetic chronic kidney disease; E78.5 Hyperlipidemia, unspecified; D63.1 Anemia in chronic kidney disease; E78.00 Pure hypercholesterolemia, unspecified; E87.5 Hyperkalemia; F41.9 Anxiety disorder, unspecified; K59.00 Constipation, unspecified; Z96.642 Presence of left artificial hip joint; M19.90 Unspecified osteoarthritis, unspecified site; M16.12 Unilateral primary osteoarthritis, left hip; Z82.49 Family history of ischemic heart disease and other diseases of the circulatory system; Z87.891 Personal history of nicotine dependence; Z91.81 History of falling; Z95.3 Presence of xenogenic heart valve; Z83.3 Family history of diabetes mellitus; Z88.8 Allergy status to other drugs, medicaments and biological substances; Z79.4 Long term (current) use of insulin; I12.9 Hypertensive chronic kidney disease with stage 1 through stage 4 chronic kidney disease, or unspecified chronic kidney disease
CPT/HCPCS: 36415; 80048; 80053; 80069; 82962; 83540; 83550; 83735; 83970; 84100; 85025; 85027; 85610; 86705; 86706; 87340; J0881; J1815; J3420; J7030; 97110; 97116; 97530; 97535; 99285-25